=== PATIENT | female | born 1950 | race Caucasian/White ===

== ENCOUNTER 2018-10-01 15:02 | Inpatient (IN) ==
[2018-10-01] MEDS ORDERED: MethylPREDNISolone Sod Succinate Inj 125 MG/2 ML Vial IV.PUSH ONE (15:41)
[2018-10-01 15:57] LABS: Baso # (Auto) 0.1 th/mm3 (0.0-0.2); Baso % (Auto) 1.2 % (0.0-2.0); Eos % (Auto) 0.5 % (0.0-4.0); Lymph # (Auto) 0.7 th/mm3 (1.0-4.8); Lymph % (Auto) 10.3 % (9.0-44.0); Mean Corpuscular Hemoglobin 26.4 pg (27.0-34.0); Mean Corpuscular Volume 82.5 fL (80.0-100.0); Mean Platelet Volume 7.5 fL (7.0-11.0); Mono # (Auto) 0.7 th/mm3 (0.0-0.9); Mono % (Auto) 9.5 % (0.0-8.0); Neut # (Auto) 5.6 th/mm3 (1.8-7.7); Neut % (Auto) 78.5 % (16.0-70.0); Platelet Count 550 th/mm3 (150-450); Red Blood Count 3.03 mil/mm3 (4.00-5.30); Red Cell Distribution Width 18.9 % (11.6-17.2); White Blood Count 7.1 th/mm3 (4.0-11.0)
[2018-10-01 16:17] LABS: Activated Partial Thrombo Time 28.9 sec (23.4-31.7); INR 1.4 Ratio
[2018-10-01 16:20] LABS: Alanine Aminotransferase 134 U/L (10-53); Albumin 2.7 g/dL (3.4-5.0); Alkaline Phosphatase 224 U/L (45-117); Anion Gap 6 meq/L (5-15); Aspartate Aminotransferase 176 U/L (15-37); Blood Urea Nitrogen 9 mg/dL (7-18); Calcium 8.6 mg/dL (8.5-10.1); Carbon Dioxide 39.6 meq/L (21.0-32.0); Chloride 94 meq/L (98-107); Glomerular Filtration Rate Greater Than 89 mL/min (>89); Glucose,Random 111 mg/dL (74-106); Magnesium 2.1 mg/dL (1.5-2.5); Potassium 3.2 meq/L (3.5-5.1); Sodium 140 meq/L (136-145); Total Protein 6.4 g/dL (6.4-8.2)
[2018-10-01 16:22] LABS: Creatine Kinase 40 U/L (26-192)
--- NOTE | 2018-10-01 16:29 | XR ---
EXAM DATE: 10/01/2018 4:21 PM EST AGE/SEX: 68 years / Female INDICATIONS: Asthma. CLINICAL DATA: This is the patient's initial encounter. Patient reports that signs and symptoms have been present for 1 day and indicates a pain score of 0/10. MEDICAL/SURGICAL HISTORY: Chronic obstructive pulmonary disease. None. COMPARISON: No prior exams available for comparison. FINDINGS: The heart size is normal. There some minimal increased density at the bases. The mid and upper lungs are clear. The lungs do appear hyperinflated. No effusion is seen. CONCLUSION: Minimal linear density at the bases likely related to minimal atelectasis or consolidation. Electronically signed by: Pro Marcano MD Board Certified Radiologist 10/01/2018 4:27 PM EST
--- NOTE | 2018-10-01 17:24 | CT ---
EXAM DATE: 10/01/2018 5:19 PM EST AGE/SEX: 68 years / Female INDICATIONS: Increasing shortness of breath CLINICAL DATA: This is the patient's initial encounter. Patient reports that signs and symptoms have been present for 1 day and indicates a pain score of 0/10. MEDICAL/SURGICAL HISTORY: Chronic obstructive pulmonary disease. None. RADIATION DOSE: 6.37 CTDI (mGy) COMPARISON: No prior exams available for comparison. TECHNIQUE: Volumetric scanning was performed using a multi-row detector CT scanner during bolus infu [place] of 75 ml Omnipaque 350 (iohexol) nonionic water-soluble contrast as a single exam dose. The kayley a was post processed with a variety of visualization algorithms including full volume maximum intensi ty projection and sliding thin slab reformation. Using automated exposure control and adjustment of t he mA and/or kV according to patient size, radiation dose was kept as low as reasonably achievable to obtain optimal diagnostic quality images. DICOM format image data is available electronically for r eview and comparison. FINDINGS: Pulmonary Arteries: No filling defects are seen in the pulmonary arteries out to the subsegmental ve ssels. The left and right pulmonary arteries are normal in diameter. Lung: There is emphysematous change seen throughout the lungs. There is increased density at the ant erior medial right lower lung and right middle lobe, and the subpleural regions at the left base, and smaller areas at the posterior superior aspect of the right lower lobe and the posterior medial mid left lower lobe. Effusion: None. Mediastinum: No evidence of mediastinal or hilar adenopathy. The left vertebral artery arises direct ly from the aortic arch between the left common carotid artery and left subclavian artery. This a nor mal variant. Other: The axilla is unremarkable. There are smaller calcifications in the anterior left mid kidney likely related to cortical calcification or nonobstructing renal stone. CONCLUSION: 1. No pulmonary embolus. 2. Emphysematous change seen throughout the lungs. 3. Scattered areas of density seen throughout the lungs being most prominent at the right middle lob e and left lower lobe. These likely represent areas of consolidation or atelectasis. They can be foll owed. Electronically signed by: Pro Marcano MD Board Certified Radiologist 10/01/2018 5:22 PM EST
[2018-10-01] MEDS ORDERED: Azithromycin Inj 500 MG in Sodium Chlor 0.9% Inj 250 ML IV.SIG ONE (17:37)
[2018-10-01] MEDS ORDERED: Acetaminophen 325 MG Tablet PO PRN (18:15)
[2018-10-01] MEDS ORDERED: Bisacodyl 10 MG Supp RECTAL PRN (18:15)
--- NOTE | 2018-10-01 18:25 | P.HPIM ---
History of Present Illness Primary Care Physician: Franky Patel DO Chief Complaint: sob, cough History of Present Illness: 68-year-old female with PMH of CRF and COPD on 2-4 L by MA at home recently requiring 4-5 L per patient at home. She follows with Dr Maya shoemaker as OP but has not seen him lately. The patient presented to the ED for evaluation of shortness of breath and possible anemia. Says she has a h/ o anemia and is taking iron pills. Per patient she was seen by her doctor today and was told to come here as she looked pale and she may need a transfusion as well as her shortness of breath was worsening. She denies any blood thinners. She denies any bleeding of any kind. No urinary or bowel movement issues. Says 2 L of oxygen at home but even with this she still feels very short of breath. Any movement causes more symptoms. She does have some chest discomfort as well and feels like a pressure. States that the pain currently is 5 out of 10. Per patient overall her main symptom is the shortness of breath. She states that she is chronically anemic and she was told that she is iron deficient and she is taking iron supplements. She states that she is never any a transfusion in the past. She denies any cardiac history. Patient states that she continues to smoke 1PPD. She does have a history of COPD and uses inhalers and nebulizers at home including inhaled steroid. No abdominal pain. No diarrhea. No fever but states having some chills and sweats. Feels comgested in her chest and can't cough up anything. No other medical symptoms. Inpatient Certification Inpatient Certification: I certify that the inpatient services were ordered in accordance with Medicare regulations governing the order. This includes certification that hospital inpatient services are reasonable and necessary and in the case of services not specified as inpatient-only under 42 CFR 419.22(n), that they are appropriately provided as inpatient services in accordance to with the 2-midnight benchmark under 43 CFR 412.3(e) Estimated Total Length of Stay (Days): 5 Plans for Post Hospital Care: Not yet determined Review of Systems Review of Systems: all other systems reviewed are negative [facility] Medical History Medical History Smoker (Acute) History of COPD (Acute) History of high cholesterol (Acute) History of shingles (Acute) Surgical History Surgical History No history of previous surgery (Acute) Social History Social History Substance History: No History of Abuse Second Hand Smoke Exposure: Yes Smoking Status: Current every day smoker Tobacco Type: Cigarettes How Often Do You Have a Drink Containing Alcohol: Never Recent Travel in [facility] within the Last 8 Weeks: No Recent Out of Country Travel within the Last 8 Weeks: No Immunization History Tetanus Immunization: >5 Years Medications and Allergies Allergies Allergy/AdvReac Type Severity Reaction Status Date / Time No Known Allergies Allergy Verified 10/01/18 15:27 Home Medications Medication Instructions Recorded Confirmed Type albuterol sulfate [ProAir HFA] 2 puff INHALATION Q4-6H PRN 06/15/18 10/01/18 History ferrous sulfate [iron] 325 mg PO DAILY 06/15/18 10/01/18 History lovastatin 40 mg PO DAILY 06/15/18 10/01/18 History tiotropium bromide [Spiriva 2 puff INHALATION DAILY 06/15/18 10/01/18 History Respimat] Active Medications: Active Medications Hydrocodone Bitart/Acetaminophen ([place] 5/325) 1 tab PO Q4H PRN PRN Reason: Acute pain 1-5 Ferrous Sulfate (Ferosul) 325 mg PO DAILY [facility] Azithromycin 500 mg/ Sodium (Chloride) 250 mls @ 250 mls/hr IV.SIG ONCE ONE Stop: 10/01/18 18:36 Non-Formulary Medication (Tiotropium [place] [Spiriva Respimat]) 2 puff INHALATION DAILY [facility] Pravastatin Sodium (Pravachol) 40 mg PO DAILY [facility] Physical Exam Vital signs: Last Vital Signs Temp 97.9 F 10/01/18 17:34 Pulse 115 H 10/01/18 18:08 Resp 15 10/01/18 18:08 BP 123/58 L 10/01/18 17:34 Pulse Ox 95 10/01/18 17:34 Intake & Output 09/29/18 09/30/18 10/01/18 10/02/18 06:59 06:59 06:59 06:59 Weight 51.71 kg Narrative: GENERAL: Very pleasant 68-year-old female frail, cachectic, appears short of breath SKIN: Warm and dry. HEAD: Atraumatic. Normocephalic. EYES: Pupils equal and round. No scleral icterus. No injection or drainage. ENT: No nasal bleeding or discharge. Mucous membranes pink and moist. NECK: Trachea midline. No JVD. CARDIOVASCULAR: Regular rate and rhythm. RESPIRATORY: No accessory muscle use. Decreased breath sounds bilaterally. Wheezing. Bronchial sounds. GASTROINTESTINAL: Abdomen soft, non-tender, nondistended. Hepatic and splenic margins not palpable. MUSCULOSKELETAL: Muscle waisting. Extremities without clubbing, cyanosis, or edema. No obvious deformities. NEUROLOGICAL: Awake and alert. No obvious cranial nerve deficits. Motor grossly within normal limits. Five out of 5 muscle strength in the arms and legs. Normal speech. PSYCHIATRIC: Appropriate mood and affect; insight and judgment normal. Results Labs CBC & Chem 7: 10/01/18 15:45 10/01/18 15:45 Imaging Impressions Chest X-Ray 10/01/18 15:21 CONCLUSION: Minimal linear density at the bases likely related to minimal atelectasis or consolidation. Chest CTA 10/01/18 16:01 CONCLUSION: 1. No pulmonary embolus. 2. Emphysematous change seen throughout the lungs. 3. Scattered areas of density seen throughout the lungs being most prominent at the right middle lobe and left lower lobe. These likely represent areas of consolidation or atelectasis. They can be followed. Caprini VTE Risk Assessment Caprini VTE Risk Assessment: Moderate/High Risk (score >= 2) Caprini Risk Assessment Model: Point Value = 1 Point Value = 2 Point Value = 3 Point Value = 5 Age 41-60 Minor surgery BMI > 25 kg/m2 Swollen legs Varicose veins or History of unexplained or recurrent spontaneous Oral contraceptives or hormone replacement Sepsis (< 1 month) Serious lung disease, including pneumonia (< 1 month) Abnormal pulmonary function Acute myocardial infarction Congestive heart failure (< 1 month) History of inflammatory bowel disease Medical patient at bed rest Age 61-74 Arthroscopic surgery Major open surgery (> 45 min) Laparoscopic surgery (> 45 min) Malignancy Confined to bed (> 72 hours) Immobilizing plaster cast Central venous access Age >= 75 History of VTE Family history of VTE Factor V Leiden Prothrombin [id number] Lupus anticoagulant Anticardiolipin antibodies Elevated serum homocysteine Heparin-induced thrombocytopenia Other congenital or acquired thrombophilia Stroke (< 1 month) Elective arthroplasty Hip, pelvis, or leg fracture Acute spinal cord injury (< 1 month) Prophylaxis Regimen: Total Risk Factor Score Risk Level Prophylaxis Regimen 0-1 Low Early ambulation 2 Moderate Order ONE of the following: *Sequential Compression Device (SCD) *Heparin 5000 units SQ BID 3-4 Higher Order ONE of the following medications: *Heparin 5000 units SQ TID *Enoxaparin/Lovenox 40 mg SQ daily (WT < 150 kg, CrCl > 30 mL/min) *Enoxaparin/Lovenox 30 mg SQ daily (WT < 150 kg, CrCl > 10-29 mL/min) *Enoxaparin/Lovenox 30 mg SQ BID (WT < 150 kg, CrCl > 30 mL/min) AND/OR *Sequential Compression Device (SCD) 5 or more Highest Order ONE of the following medications: *Heparin 5000 units SQ TID (Preferred with Epidurals) *Enoxaparin/Lovenox 40 mg SQ daily (WT < 150 kg, CrCl > 30 mL/min) *Enoxaparin/Lovenox 30 mg SQ daily (WT < 150 kg, CrCl > 10-29 mL/min) *Enoxaparin/Lovenox 30 mg SQ BID (WT < 150 kg, CrCl > 30 mL/min) AND *Sequential Compression Device (SCD) Assessment and Plan Plan The patient is pleasant 68-year-old female with Acute on chronic respiratory failure patient is on 2 L by nasal cannula oxygen supplement at home and now requiring 5 L by nasal cannula Severe COPD with exacerbation Bilateral pneumonia Symptomatic anemia Sepsis meeting criteria on admission with tachypnea and tachycardia Moderate to severe Protein calorie malnutrition. Likely secondary to COPD. Patient cachectic with low BMI. Dietitian consult. Check prealbumin. Add Ensure. Blood cultures obtained in the emergency room Sputum cultures if obtainable Urinary antigen for Legionella and pneumococcal Started on IV antibiotics azithromycin and ceftriaxone Duo nebs scheduled and as needed Solu-Medrol IV taper as tolerated Acapella, incentive spirometry Oxygen supplement to keep oxygen saturation more than 90% If need, consult patient pulmonology Dr. Trejo Patient hemoglobin is 8 on admission received 1 unit of blood, monitor H&H and transfuse as needed Restart home medications as appropriate DVT prophylaxis SCDs/teds Discussed Condition With: The patient, Family - son at bedside, nurse, ED physician/PA
--- NOTE | 2018-10-01 18:35 | ED ---
HPI General Chief Complaint: Shortness of Breath/Dyspnea Stated Complaint: Dr dias Time Seen by Provider: 10/01/18 15:21 Source: patient Mode of arrival: ambulatory Limitations: no limitations History of Present Illness 68-year-old female who presents to the ED for evaluation of shortness of breath and possible anemia. Per patient she was seen by her doctor today and was told to come here as she looked pale and she may need a transfusion as well as her shortness of breath was worsening. She denies any blood thinners. She denies any bleeding of any kind. No urinary or bowel movement issues. Says 2 L of oxygen at home but even with this she still feels very short of breath. Any movement causes more symptoms. She does have some chest discomfort as well and feels like a pressure. States that the pain currently is 5 out of 10. Per patient overall her main symptom is the shortness of breath. She states that she is chronically anemic and she was told that she is iron deficient and she is taking iron supplements. She states that she is never any a transfusion in the past. She denies any cardiac history. Patient states that she continues to smoke. She does have a history of COPD and uses inhalers and nebulizers at home including inhaled steroid. No abdominal pain. No diarrhea. No fever but states having some chills and sweats. No other medical symptoms. Related Data Home Medications Medication Instructions Recorded Confirmed albuterol sulfate [ProAir HFA] 2 puff INHALATION Q4-6H PRN 06/15/18 10/01/18 ferrous sulfate [iron] 325 mg PO DAILY 06/15/18 10/01/18 lovastatin 40 mg PO DAILY 06/15/18 10/01/18 tiotropium bromide [Spiriva 2 puff INHALATION DAILY 06/15/18 10/01/18 Respimat] Previous Rx's Medication Instructions Recorded hydrocodone-acetaminophen [[place]] 1 tab PO Q4H PRN #14 tab 06/15/18 Allergies Allergy/AdvReac Type Severity Reaction Status Date / Time No Known Allergies Allergy Verified 10/01/18 15:27 Review of Systems ROS: all other systems reviewed are negative [facility] Medical History Medical History Smoker (Acute) History of COPD (Acute) History of high cholesterol (Acute) History of shingles (Acute) Surgical History Surgical History No history of previous surgery (Acute) Social History Social History Substance History: No History of Abuse Second Hand Smoke Exposure: Yes Smoking Status: Current every day smoker Tobacco Type: Cigarettes How Often Do You Have a Drink Containing Alcohol: Never Recent Travel in [facility] within the Last 8 Weeks: No Recent Out of Country Travel within the Last 8 Weeks: No Immunization History Tetanus Immunization: >5 Years Exam Narrative Exam Narrative: GENERAL: in some distress SKIN: Focused skin assessment warm/dry. HEAD: Atraumatic. Normocephalic. EYES: Pupils equal and round. No scleral icterus. No injection or drainage. ENT: No nasal bleeding or discharge. Mucous membranes pink and moist. Tongue is midline. No Uvula deviation. NECK: Trachea midline. No JVD. CARDIOVASCULAR: Regular rate and rhythm. No murmur appreciated. RESPIRATORY: No accessory muscle use. Wheezing heard in all lung knapp. Breath sounds equal bilaterally. GASTROINTESTINAL: Abdomen soft, non-tender, nondistended. Hepatic and splenic margins not palpable. MUSCULOSKELETAL: No obvious deformities. No clubbing. No cyanosis. No edema. Full range of motion of the upper and lower extremities bilaterally. 2+ pulses bilaterally. NEUROLOGICAL: Awake and alert. No obvious cranial nerve deficits. Motor grossly within normal limits. Normal speech. PSYCHIATRIC: Appropriate mood and affect; insight and judgment normal. Course Initial Documented Vital Signs Temperature 97.6 F 10/01/18 15:15 Pulse Rate 114 H 10/01/18 15:15 Respiratory Rate 24 10/01/18 15:15 Blood Pressure 135/61 10/01/18 15:15 Pulse Oximetry 85 L 10/01/18 15:15 Last Documented Vital Signs Temperature 97.9 F 10/01/18 17:34 Pulse Rate 115 H 10/01/18 18:08 Respiratory Rate 15 10/01/18 18:08 Blood Pressure 123/58 L 10/01/18 17:34 Pulse Oximetry 95 10/01/18 17:34 Medical Decision Making MDM Narrative Medical decision making narrative: 68-year-old female that presents to the ED for evaluation of shortness of breath and possible anemia. Patient was properly examined and was found to have signs and symptoms consistent with appears to be likely COPD exacerbation. She does appear to be pale but I presume this is chronic for her. Labs and imaging were ordered. Labs did show hemoglobin of 8. No signs of bleeding at this time. Patient had a CTA secondary to tachycardia and hypoxia which appeared to worsen. Chest x-ray did not show any sign of pneumonia. CTA did show some consolidations in both the right and left lung. Could be pneumonia. 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 Any movement especially walking makes that the satting worse. My attending Dr. Francisco evaluate the patient and agrees with this plan. Patient was started on ceftriaxone and azithromycin IV. Case discussed with admitting physician Dr. Hancock who agrees admission to her service. Medical Screen Exam Complete: Yes Emergency Medical Condition: Yes Differential Diagnosis Differential Diagnosis: COPD exacerbation versus PE versus chronic anemia versus symptomatic anemia versus pneumonia Medical Records Medical records reviewed: Yes I reviewed the patient's medical records. Lab Data Lab results reviewed: Yes I reviewed the patient's lab results. Result diagrams: 10/01/18 15:45 10/01/18 15:45 Lab Results 10/01/18 10/01/18 10/01/18 Range/Units 15:45 15:45 15:45 WBC 7.1 (4.0-11.0) th/mm3 RBC 3.03 L (4.00-5.30) mil/mm3 Hgb 8.0 L (11.6-15.3) gm/dL Hct 25.0 L (35.0-46.0) % MCV 82.5 (80.0-100.0) fL MCH 26.4 L (27.0-34.0) pg MCHC 32.0 (32.0-36.0) % RDW 18.9 H (11.6-17.2) % Plt Count 550 H (150-450) th/mm3 MPV 7.5 (7.0-11.0) fL Neut % (Auto) 78.5 H (16.0-70.0) % Lymph % (Auto) 10.3 (9.0-44.0) % [place] % (Auto) 9.5 H (0.0-8.0) % Eos % (Auto) 0.5 (0.0-4.0) % Baso % (Auto) 1.2 (0.0-2.0) % Neut # (Auto) 5.6 (1.8-7.7) th/mm3 Lymph # (Auto) 0.7 L (1.0-4.8) th/mm3 [place] # (Auto) 0.7 (0.0-0.9) th/mm3 Eos # (Auto) 0.0 (0.0-0.4) th/mm3 Baso # (Auto) 0.1 (0.0-0.2) th/mm3 WBC Differential . Differential Comment Auto diff final PT 14.0 H (9.8-11.6) sec INR 1.4 Ratio APTT 28.9 (23.4-31.7) sec Sodium 140 (136-145) meq/L Potassium 3.2 L (3.5-5.1) meq/L Chloride 94 L (98-107) meq/L Carbon Dioxide 39.6 H (21.0-32.0) meq/L Anion Gap 6 (5-15) meq/L BUN 9 (7-18) mg/dL Creatinine 0.47 L (0.50-1.00) mg/dL Estimated GFR Greater than 89 (>89) mL/min Random Glucose 111 H (74-106) mg/dL Calcium 8.6 (8.5-10.1) mg/dL Magnesium 2.1 (1.5-2.5) mg/dL Total Bilirubin 0.9 (0.2-1.0) mg/dL AST 176 H (15-37) U/L ALT 134 H (10-53) U/L Alkaline Phosphatase 224 H (45-117) U/L Total Creatine Kinase 40 (26-192) U/L Troponin I Less than 0.02 L (0.02-0.05) ng/mL Total Protein 6.4 (6.4-8.2) g/dL Albumin 2.7 L (3.4-5.0) g/dL Blood Type Antibody Screen MTS Gel Crossmatch 10/01/18 10/01/18 Range/Units 15:45 17:40 WBC (4.0-11.0) th/mm3 RBC (4.00-5.30) mil/mm3 Hgb (11.6-15.3) gm/dL Hct (35.0-46.0) % MCV (80.0-100.0) fL MCH (27.0-34.0) pg MCHC (32.0-36.0) % RDW (11.6-17.2) % Plt Count (150-450) th/mm3 MPV (7.0-11.0) fL Neut % (Auto) (16.0-70.0) % Lymph % (Auto) (9.0-44.0) % [place] % (Auto) (0.0-8.0) % Eos % (Auto) (0.0-4.0) % Baso % (Auto) (0.0-2.0) % Neut # (Auto) (1.8-7.7) th/mm3 Lymph # (Auto) (1.0-4.8) th/mm3 [place] # (Auto) (0.0-0.9) th/mm3 Eos # (Auto) (0.0-0.4) th/mm3 Baso # (Auto) (0.0-0.2) th/mm3 WBC Differential Differential Comment PT (9.8-11.6) sec INR Ratio APTT (23.4-31.7) sec Sodium (136-145) meq/L Potassium (3.5-5.1) meq/L Chloride (98-107) meq/L Carbon Dioxide (21.0-32.0) meq/L Anion Gap (5-15) meq/L BUN (7-18) mg/dL Creatinine (0.50-1.00) mg/dL Estimated GFR (>89) mL/min Random Glucose (74-106) mg/dL Calcium (8.5-10.1) mg/dL Magnesium (1.5-2.5) mg/dL Total Bilirubin (0.2-1.0) mg/dL AST (15-37) U/L ALT (10-53) U/L Alkaline Phosphatase (45-117) U/L Total Creatine Kinase (26-192) U/L Troponin I (0.02-0.05) ng/mL Total Protein (6.4-8.2) g/dL Albumin (3.4-5.0) g/dL Blood Type O Positive Antibody Screen Negative MTS Gel Crossmatch See Detail Imaging Data Attestation: I personally reviewed and interpreted this imaging study as follows : Radiologist's impression: Chest X-Ray 10/01/18 15:21 CONCLUSION: Minimal linear density at the bases likely related to minimal atelectasis or consolidation. Chest CTA 10/01/18 16:01 CONCLUSION: 1. No pulmonary embolus. 2. Emphysematous change seen throughout the lungs. 3. Scattered areas of density seen throughout the lungs being most prominent at the right middle lobe and left lower lobe. These likely represent areas of consolidation or atelectasis. They can be followed. ECG Data Attestation: I personally reviewed and interpreted this ECG as follows: Interpretation: EKG shows sinus tachycardia but no sign of acute ischemia and arrhythmia read by me and attending. Discharge Plan Discharge Disposition Patient Disposition: ED Admit(ED Internal Use Only) Discharge Order Discharge Orders: ED Use Only Admit Order (Routine); Ordered 10/01/18 Ordered By: Hector Puente Discharge Details Diagnosis: Acute exacerbation of chronic obstructive airways disease, Pneumonia, Anemia Physicians Team ED Provider: Hussain Francisco ED Midlevel Provider: Hector Puente Primary Care Provider: Franky Patel Attending Provider: Louise Hancock Status ED Status: Admitted Patient
[2018-10-01] MEDS: Sod Chloride 0.9% Inj 1,000 ML IV.CONT SCH (22:04)
[2018-10-01] MEDS: Senna/Docusate Sodium 8.6/50 MG Tablet PO SCH (22:05)
[2018-10-01] MEDS: Famotidine PF Inj 20 MG/2 ML Vial IV.PUSH SCH (22:05)
[2018-10-01] MEDS: MethylPREDNISolone Sod Succinate Inj 40 MG/ML Vial IV.PUSH SCH (22:06)
[2018-10-02] MEDS ORDERED: Chlorhexidine Gluconate 2% 1 Pack (2 Cloths) TOPICAL PRN (04:00)
[2018-10-02] MEDS: Chlorhexidine Gluconate 2% 1 Pack (2 Cloths) TOPICAL SCH (04:31)
[2018-10-02] MEDS: MethylPREDNISolone Sod Succinate Inj 40 MG/ML Vial IV.PUSH SCH ×4 (04:52→22:11)
[2018-10-02 07:47] LABS: Baso % (Auto) 0.3 % (0.0-2.0); Hematocrit 30.9 % (35.0-46.0); Hemoglobin 9.7 gm/dL (11.6-15.3); Lymph # (Auto) 0.5 th/mm3 (1.0-4.8); Lymph % (Auto) 9.2 % (9.0-44.0); Mean Corpuscular HGB Conc 31.5 % (32.0-36.0); Mean Corpuscular Hemoglobin 26.7 pg (27.0-34.0); Mean Corpuscular Volume 84.8 fL (80.0-100.0); Mean Platelet Volume 7.4 fL (7.0-11.0); Mono # (Auto) 0.1 th/mm3 (0.0-0.9); Neut % (Auto) 89.5 % (16.0-70.0); Platelet Count 535 th/mm3 (150-450); Red Blood Count 3.65 mil/mm3 (4.00-5.30); Red Cell Distribution Width 18.4 % (11.6-17.2); White Blood Count 5.6 th/mm3 (4.0-11.0)
[2018-10-02 08:06] LABS: Albumin 2.7 g/dL (3.4-5.0); Anion Gap 5 meq/L (5-15); Aspartate Aminotransferase 103 U/L (15-37); Blood Urea Nitrogen 7 mg/dL (7-18); Calcium 8.4 mg/dL (8.5-10.1); Carbon Dioxide 39.8 meq/L (21.0-32.0); Chloride 95 meq/L (98-107); Glomerular Filtration Rate Greater Than 89 mL/min (>89); Glucose,Random 116 mg/dL (74-106); Sodium 140 meq/L (136-145)
[2018-10-02 08:13] LABS: Alanine Aminotransferase 110 U/L (10-53); Alkaline Phosphatase 200 U/L (45-117); Total Protein 6.4 g/dL (6.4-8.2)
[2018-10-02 08:20] LABS: Potassium 2.9 meq/L (3.5-5.1)
--- NOTE | 2018-10-02 08:32 | ECG ---
Date Performed: 10/01/2018 Time Performed: 15:33:08 PTAGE: 68 years EKG: SINUS TACHYCARDIA NONSPECIFIC ST & T-WAVE ABNORMALITY ABNORMAL RHYTHM ECG NO PREVIOUS TRACING DOCTOR: Eve Alcocer Interpretating Date/Time 10/02/2018 08:27:09
[2018-10-02] MEDS ORDERED: [UNRECOGNIZED DRUG - OTHER] INH SCH (09:00)
[2018-10-02] MEDS ORDERED: TIOTROPIUM BROMIDE INH SCH (09:00)
[2018-10-02] MEDS: Ferrous Sulfate 325 MG Tablet PO SCH (09:20)
[2018-10-02] MEDS: Famotidine 20 MG Tablet PO SCH (09:21)
[2018-10-02] MEDS: Famotidine PF Inj 20 MG/2 ML Vial IV.PUSH SCH ×2 (09:21→22:11)
[2018-10-02] MEDS: Sod Chloride 0.9% Inj 1,000 ML IV.CONT SCH ×3 (09:21→22:11)
[2018-10-02] MEDS: Senna/Docusate Sodium 8.6/50 MG Tablet PO SCH ×2 (09:22→22:13)
--- NOTE | 2018-10-02 09:57 | P.PNFP ---
Subjective Interval history: Resting in bed, son at bedside. She is SOB, dyspneic with conversation She denies CP, or palpations potassium 2.9 this am Results - Labs Result diagrams: 10/02/18 05:20 10/02/18 05:20 Abnormal lab results 10/01/18 10/01/18 10/01/18 Range/Units 15:45 15:45 15:45 RBC 3.03 L (4.00-5.30) mil/mm3 Hgb 8.0 L (11.6-15.3) gm/dL Hct 25.0 L (35.0-46.0) % MCH 26.4 L (27.0-34.0) pg MCHC (32.0-36.0) % RDW 18.9 H (11.6-17.2) % Plt Count 550 H (150-450) th/mm3 Neut % (Auto) 78.5 H (16.0-70.0) % [place] % (Auto) 9.5 H (0.0-8.0) % Lymph # (Auto) 0.7 L (1.0-4.8) th/mm3 PT 14.0 H (9.8-11.6) sec Potassium 3.2 L (3.5-5.1) meq/L Chloride 94 L (98-107) meq/L Carbon Dioxide 39.6 H (21.0-32.0) meq/L Creatinine 0.47 L (0.50-1.00) mg/dL Random Glucose 111 H (74-106) mg/dL Calcium (8.5-10.1) mg/dL AST 176 H (15-37) U/L ALT 134 H (10-53) U/L Alkaline Phosphatase 224 H (45-117) U/L Troponin I Less than 0.02 L (0.02-0.05) ng/mL Albumin 2.7 L (3.4-5.0) g/dL MTS Gel Crossmatch 10/01/18 10/02/18 10/02/18 Range/Units 17:40 05:20 05:20 RBC 3.65 L (4.00-5.30) mil/mm3 Hgb 9.7 L (11.6-15.3) gm/dL Hct 30.9 L (35.0-46.0) % MCH 26.7 L (27.0-34.0) pg MCHC 31.5 L (32.0-36.0) % RDW 18.4 H (11.6-17.2) % Plt Count 535 H (150-450) th/mm3 Neut % (Auto) 89.5 H (16.0-70.0) % [place] % (Auto) (0.0-8.0) % Lymph # (Auto) 0.5 L (1.0-4.8) th/mm3 PT (9.8-11.6) sec Potassium 2.9 L* (3.5-5.1) meq/L Chloride 95 L (98-107) meq/L Carbon Dioxide 39.8 H (21.0-32.0) meq/L Creatinine 0.40 L (0.50-1.00) mg/dL Random Glucose 116 H (74-106) mg/dL Calcium 8.4 L (8.5-10.1) mg/dL AST 103 H (15-37) U/L ALT 110 H (10-53) U/L Alkaline Phosphatase 200 H (45-117) U/L Troponin I (0.02-0.05) ng/mL Albumin 2.7 L (3.4-5.0) g/dL MTS Gel Crossmatch See Detail Short CBC 10/01/18 10/02/18 Range/Units 15:45 05:20 WBC 7.1 5.6 (4.0-11.0) th/mm3 Hgb 8.0 L 9.7 L (11.6-15.3) gm/dL Hct 25.0 L 30.9 L (35.0-46.0) % Plt Count 550 H 535 H (150-450) th/mm3 BMP 10/01/18 10/02/18 15:45 05:20 Sodium 140 140 Potassium 3.2 L 2.9 L* Chloride 94 L 95 L Carbon Dioxide 39.6 H 39.8 H BUN 9 7 Creatinine 0.47 L 0.40 L Calcium 8.6 8.4 L Cardiac Enzymes 10/01/18 Range/Units 15:45 Total Creatine Kinase 40 (26-192) U/L Troponin I Less than 0.02 L (0.02-0.05) ng/mL Liver Function 10/01/18 10/02/18 Range/Units 15:45 05:20 Total Bilirubin 0.9 0.8 (0.2-1.0) mg/dL AST 176 H 103 H (15-37) U/L ALT 134 H 110 H (10-53) U/L Alkaline Phosphatase 224 H 200 H (45-117) U/L Albumin 2.7 L 2.7 L (3.4-5.0) g/dL - Imaging Impressions Chest X-Ray 10/01/18 15:21 CONCLUSION: Minimal linear density at the bases likely related to minimal atelectasis or consolidation. Chest CTA 10/01/18 16:01 CONCLUSION: 1. No pulmonary embolus. 2. Emphysematous change seen throughout the lungs. 3. Scattered areas of density seen throughout the lungs being most prominent at the right middle lobe and left lower lobe. These likely represent areas of consolidation or atelectasis. They can be followed. Physical Exam Vital signs: Vital Signs 10/01/18 15:15 10/01/18 15:21 10/01/18 15:53 Temperature 97.6 F Pulse Rate 114 H 111 H Respiratory Rate 24 16 Blood Pressure 135/61 Pulse Oximetry 85 L 96 96 10/01/18 15:54 10/01/18 17:34 10/01/18 18:08 Temperature 97.9 F Pulse Rate 111 H 109 H 115 H Respiratory Rate 16 20 15 Blood Pressure 123/58 L Pulse Oximetry 95 10/01/18 18:15 10/01/18 18:47 10/01/18 19:05 Temperature 99 F 99 F 99 F Pulse Rate 120 H 121 H 118 H Respiratory Rate 20 20 20 Blood Pressure 124/60 123/58 L 118/65 Pulse Oximetry 95 95 95 10/01/18 19:15 10/01/18 20:00 10/01/18 20:45 Temperature 98.1 F Pulse Rate 117 H 117 H 117 H Respiratory Rate 16 20 Blood Pressure 140/60 Pulse Oximetry 92 L 10/01/18 20:46 10/01/18 21:54 10/02/18 00:00 Temperature 97.9 F 98.9 F Pulse Rate 110 H 101 H Respiratory Rate 16 16 Blood Pressure 138/64 140/62 Pulse Oximetry 91 L 95 91 L 10/02/18 04:00 10/02/18 08:10 Temperature 98.4 F Pulse Rate 101 H 103 H Respiratory Rate 17 18 Blood Pressure 139/64 Pulse Oximetry 92 L Intake & Output 10/01/18 10/02/18 10/02/18 18:59 06:59 18:59 Intake Total 100 / 100 1250 / 1250 1000 / 1000 Balance 100 / 100 1250 / 1250 1000 / 1000 Weight 51.71 kg 57.3 kg Intake: IV 100 / 100 250 / 250 1000 / 1000 NS Inj 1,000 ML @ 100 mls/hr IV 1000 / 1000 .CONT .Q10H CHRIS Rx#:[id number] Azithromycin Inj 500 MG In NS 250 / 250 Inj 250 ML @ 250 mls/hr IV.SIG ONCE ONE Rx#:[id number] Rocephin Inj 1,000 MG In NS Inj 100 / 100 100 ML @ 200 mls/hr IV.SIG ONCE ONE Rx#:[id number] Oral 600 / 600 Intake (Blood Product) Amt 0 / 0 400 / 400 Rbc As-3 Leukoreduced Unit 0 / 0 400 / 400 [id number] Other: # Voids 6 Date of Last Bowel Movement 10/02/18 # Bowel Movements 2 Weight On Admission 57.7 kg - Constitutional no acute distress - Routine HEENT Exam Eye: Present: PERRL ENT: Present: mucous membranes moist - Routine Respiratory Exam Present: wheezes, diminished air movement - Routine Cardiovascular Exam Present: S1, S2 - Routine Abdominal Exam Present: soft, normoactive bowel sounds - Routine Extremities Exam Present: pulses intact - Routine Skin Exam Present: dry, warm - Routine Neurological Exam Present: alert, oriented X3 - Routine Psychiatric Exam Present: cooperative Assessment and Plan - Assessment (1) Acute exacerbation of chronic obstructive airways disease Code(s): J44.1 - Chronic obstructive pulmonary disease with (acute) exacerbation Status: Acute Plan: Pulmonary consult, oxygen support, bronchodilators, Solu-Medrol (2) Pneumonia Code(s): J18.9 - Pneumonia, unspecified organism Status: Acute Plan: Pulmonary consult, cont Iv azithromycin, Rocephin. (3) Anemia Code(s): D64.9 - Anemia, unspecified Status: Acute Plan: Given unit blood, no sign of bleeding, will cont to monitor Fe supplement (4) Hypokalemia Code(s): E87.6 - Hypokalemia Status: Acute Plan: potassium 2.9 this am will replace
--- NOTE | 2018-10-02 12:13 | P.DIET ---
Nutritional Evaluation Type of nutrition evaluation: initial Nutrition consult regarding: Diet Evaluation Nutrition screening: Poor PO Intake, MDC Subjective Barriers to Nutrition: Mouth pain (Pt reports "yeast infection" in her mouth which makes it painful to chew and swallow ) Oral Diet Tolerance Assessment Indicates: Sore mouth Objective - Diagnosis Acute COPD exacerbation, pneumonia, anemia - Objective Body Mass Index: 21.7 [place] body weight: 55 kg % IBW: 104 Body Weight Used for Calculations: Actual (57.3kg admission weight ) Energy Needs - Lower Range (kCal/kg): 30 Energy Needs - Upper Range (kCal/kg): 35 Lower Limit kCal/kg (kCals): 1,719 Upper Limit kCal/kg (kCals): 2,005 Lower Limit Protein Factor (Grams per Kg): 1.2 Upper Limit Protein Factor (Grams per Kg): 1.5 Lower Protein Needs (Protein): 68 Upper Protein Needs (Protein): 86 Dietitian Reviewed in Medical Record: Current diet, Curent medications, Intake & Output, Labs, Medical history Diet Order: Cardiac diet Objective Comments: PMH; CRF, COPD Labs; K 2.9, random glucose 115 Medications; Ferrous sulfate- chronic anemia Assessment Assessment: MDC poor PO intake; Pt is currently at nutritional risk as she presented to ED with SOB and severe COPD exacerbation. Pt currently with increased energy requirements as increased work of breathing 2/2 COPD increases energy expenditure. Per MD note, pt with moderate to severe protein calorie malnutrition which I am agreeable to as pt has had poor PO intake and presents with evident muscle wasting. Pt currently on cardiac diet and reported that she ate her grits and one Ensure Enlive this morning. Pt reports that "all food tastes bad right now" because she has an infection in her mouth 2/2 antibiotics but she is forcing herself to eat some. Per pt, aware of this infection. Offered pt additional snacks throughout the day which may appeal to her however she declined and would like to try Ensure pudding instead. At this time will recommend to continue with Ensure Enlive TID to provide 350kcal and 20g protein and will offer pt Ensure pudding as well which provides 170kcal and 4g protein. Labs and medications reviewed. Will continue to monitor PO intake and clinical course. Recommendations: 1. Continue with Ensure Enlive TID 2. Ensure pudding q day per pt request 3. Monitor PO intake
[2018-10-02] MEDS: Potassium Chlor 20 mEq Premix 20 MEQ/100 ML PIGGYBACK IV.SIG SCH ×2 (12:25→14:10)
[2018-10-02] MEDS ORDERED: PARoxetine 25 MG ER Tablet PO SCH (16:00)
[2018-10-02] MEDS: Azithromycin Inj 250 MG in Sodium Chlor 0.9% Inj 250 ML IV.SIG SCH (22:09)
[2018-10-03] MEDS: Sod Chloride 0.9% Inj 1,000 ML IV.CONT SCH ×3 (01:10→20:41)
[2018-10-03 01:11] LABS: ABG PCO2 44 mmHg (38-42); ABG PO2 59 mmHg (61-120)
--- NOTE | 2018-10-03 01:44 | XR ---
EXAM DATE: 10/03/2018 1:39 AM EST AGE/SEX: 68 years / Female INDICATIONS: Respiratory failure. CLINICAL DATA: This is the patient's subsequent encounter. Patient reports that signs and symptoms h ave been present for 3 days and indicates a pain score of Nonresponsive. MEDICAL/SURGICAL HISTORY: Chronic obstructive pulmonary disease. None. COMPARISON: [facility] – [place], CHEST 1V SINGLE AP, 10/01/2018. . FINDINGS: Worsening focal parenchymal consolidation at the left base. Right lung remains clear. No pleural effu [place] or pneumothorax demonstrated. Heart size stable, within normal limits. CONCLUSION: Worsening left base consolidation. Electronically signed by: Pro Flores MD Board Certified Radiologist 10/03/2018 1:42 AM EST
[2018-10-03] MEDS: Chlorhexidine Gluconate 2% 1 Pack (2 Cloths) TOPICAL SCH (04:18)
[2018-10-03] MEDS: MethylPREDNISolone Sod Succinate Inj 40 MG/ML Vial IV.PUSH SCH ×3 (05:30→17:25)
[2018-10-03] MEDS: Ferrous Sulfate 325 MG Tablet PO SCH ×2 (08:14→20:41)
[2018-10-03] MEDS: Famotidine 20 MG Tablet PO SCH ×2 (08:15→20:41)
[2018-10-03] MEDS: Famotidine PF Inj 20 MG/2 ML Vial IV.PUSH SCH (08:18)
[2018-10-03] MEDS: Senna/Docusate Sodium 8.6/50 MG Tablet PO SCH ×2 (09:44→20:41)
[2018-10-03 10:39] LABS: ABG Base Excess 9.8 mmol/L (-2-2); ABG PCO2 50 mmHg (38-42); ABG PO2 54 mmHg (61-120)
[2018-10-03 11:11] LABS: Hematocrit 29.4 % (35.0-46.0); Hemoglobin 9.2 gm/dL (11.6-15.3); Lymph # (Auto) 0.5 th/mm3 (1.0-4.8); Lymph % (Auto) 4.9 % (9.0-44.0); Mean Corpuscular HGB Conc 31.3 % (32.0-36.0); Mean Corpuscular Hemoglobin 26.9 pg (27.0-34.0); Mean Corpuscular Volume 86.1 fL (80.0-100.0); Mean Platelet Volume 7.1 fL (7.0-11.0); Mono # (Auto) 0.2 th/mm3 (0.0-0.9); Mono % (Auto) 2.2 % (0.0-8.0); Neut # (Auto) 9.9 th/mm3 (1.8-7.7); Neut % (Auto) 92.9 % (16.0-70.0); Platelet Count 603 th/mm3 (150-450); Red Blood Count 3.41 mil/mm3 (4.00-5.30); Red Cell Distribution Width 18.8 % (11.6-17.2); White Blood Count 10.7 th/mm3 (4.0-11.0)
[2018-10-03 11:53] LABS: Alanine Aminotransferase 78 U/L (10-53); Albumin 2.8 g/dL (3.4-5.0); Alkaline Phosphatase 205 U/L (45-117); Anion Gap 3 meq/L (5-15); Aspartate Aminotransferase 40 U/L (15-37); Blood Urea Nitrogen 20 mg/dL (7-18); Calcium 8.4 mg/dL (8.5-10.1); Chloride 101 meq/L (98-107); Glomerular Filtration Rate Greater Than 89 mL/min (>89); Glucose,Random 152 mg/dL (74-106); Potassium 4.2 meq/L (3.5-5.1); Sodium 141 meq/L (136-145); Total Protein 6.4 g/dL (6.4-8.2)
[2018-10-03] MEDS ORDERED: Acetaminophen 325 MG Tablet PO PRN (14:33)
[2018-10-03] MEDS ORDERED: Potassium Chlor 20 mEq Premix 20 MEQ/100 ML PIGGYBACK IV.SIG PRN ×2 (14:36)
[2018-10-03] MEDS ORDERED: Potassium Chloride 25 MEQ Effervescent Tablet PO PRN (14:36)
[2018-10-03] MEDS ORDERED: Potassium Chlor 40 mEq Premix 40 MEQ/100 ML PIGGYBACK IV.SIG PRN ×2 (14:36)
[2018-10-03] MEDS ORDERED: Dextrose 50% in Water 50 ML Vial IV.PUSH PRN (14:36)
[2018-10-03] MEDS ORDERED: Potassium Phosphate 500 MG Soluble Tablet PO PRN (14:36)
[2018-10-03] MEDS ORDERED: Magnesium Sulfate Inj 2 GM in Sodium Chlor 0.9% Inj 96 ML IV.SIG PRN (14:36)
[2018-10-03] MEDS ORDERED: Magnesium Oxide 400 MG Tablet PO PRN (14:36)
[2018-10-03] MEDS ORDERED: Potassium Phosphate Inj 30 MMOL in Sodium Chlor 0.9% Inj 250 ML IV.SIG PRN (14:36)
[2018-10-03] MEDS ORDERED: Magnesium Sulfate Inj 4 GM in Sodium Chlor 0.9% Inj 92 ML IV.SIG PRN (14:36)
[2018-10-03] MEDS ORDERED: Sodium Phosphate Inj 30 MMOL in Sodium Chlor 0.9% Inj 250 ML IV.SIG PRN (14:36)
--- NOTE | 2018-10-03 14:46 | P.CONCC ---
History of Present Illness Service: Critical care medicine Consult date: 10/03/18 Requesting Physician: Franky Patel Reason for Consult: Altered mental status Primary Care Provider: Franky Patel DO Chief Complaint: sob, cough History of Present Illness: This is a 68-year-old female. Date of admission 10/01/2018. Date of consultation . Past medical history includes COPD on chronic oxygen therapy at home 4-5 L, shingles requiring pregabalin, depression, hyperlipidemia. Patient does not use CPAP at home as she is claustrophobic. Patient presented to [facility] has been seen by her physician at [facility] was noted to be "pale". She is anemic and received 1 unit PRBCs at this facility. Hemoglobin currently 9.2. She was admitted as a COPD exacerbation as well and received ceftriaxone, azithromycin and methylprednisolone succinate 40 mg 4 times daily. According to and son at bedside, yesterday patient did receive hydrocodone/acetaminophen and became more confused. Correction corrective increase of 3.5-5 L. She is currently awake and oriented to place and person only. Not time. She does not know her age present in any of her or son at bedside. She is moving all 4 extremities spontaneously and shows no focal neurological motor or sensory deficits. MRI brain pending. Review of Systems Constitutional: Reports body ache(s), Denies anorexia, Denies chills, Denies daytime sleepiness, Denies excessive sweating, Denies headache(s), Denies increased appetite, Denies weakness Eyes: Denies blind spots, Denies blurry vision Ears, Nose, Mouth, and Throat: Denies abnormal hearing, Denies bleeding gums, Denies hearing loss, Denies poor balance Cardiovascular: Reports chest pain, Reports shortness of breath, Reports shortness of breath with activity, Denies chest pain at rest, Denies chest pain with activity, Denies shortness of breath when lying down, Denies shortness of breath causing sudden awakening, Denies slow heart rate Respiratory: Reports change in phlegm color, Reports chest congestion, Reports cough, Reports excessive phlegm production, Reports pain on inspiration, Reports pain with cough, Reports shortness of breath, Reports shortness of breath with activity, Reports wheezing, Denies coughing up blood Gastrointestinal: Denies abdominal pain, Denies belching, Denies heartburn, Denies nausea, Denies vomiting Genitourinary: Denies urinary incontinence, Denies urinary urgency Musculoskeletal: Denies abnormal walking, Denies stiffness Skin/Breast: Reports sores, Denies bleeding lesions, Denies boil, Denies non- healing lesions Neurologic: Reports behavioral changes, Reports confusion, Denies abnormal hearing, Denies abnormal movements, Denies abnormal speech, Denies dizziness, Denies fainting, Denies frequent falls, Denies headache(s), Denies lack of coordination, Denies localized weakness, Denies loss of vision, Denies restless legs, Denies convulsions, Denies seizure-like activity, Denies sensory deficit, Denies tingling/numbness/burning sensations Psychiatric: Reports anxiety, Reports confusion, Reports irritability, Denies depression, Denies hopelessness Endocrine: Denies cold intolerance, Denies excessive sweating Hematologic/Lymphatic: Denies easy bleeding Allergic/Immunologic: Denies GI upset with certain foods PMFSH - History History Provided By: Patient - Medical History Medical History: Medical History (Last Reviewed 10/03/18 @ 14:45 by Tang Langford MD) Smoker History of COPD History of high cholesterol History of shingles - Surgical History Surgical History: Surgical History (Last Reviewed 10/03/18 @ 14:45 by Tang Langford MD) No history of previous surgery - Family History Family History: Family History (Last Reviewed 10/03/18 @ 14:45 by Tang Langford MD) Mother COPD (chronic obstructive pulmonary disease) - Social History I have reviewed the patient's Social History: Yes - Tobacco History Second Hand Smoke Exposure: Yes Tobacco Use In Past 30 Days: Yes Smoking Status: Current every day smoker Tobacco Type: Cigarettes - Alcohol History How Often Do You Have a Drink Containing Alcohol: Never - Substance Use History Substance History: No History of Abuse - Travel History Recent Travel in the [place] Within the Last 8 Weeks: No Recent Travel Out of the Country Within the Last 8 Weeks: No - Immunization History Tetanus Immunization: Unsure Hx Influenza Vaccine This Season: Yes Medications and Allergies Active Medications: Active Medications Acetaminophen (Tylenol) 650 mg PO Q6H PRN PRN Reason: Fever/pain 1 through 10 Al Hydroxide/Mg Hydroxide (Milk Of Magnesia Liq) 30 ml PO Q12H PRN PRN Reason: Mild Constipation Albuterol (Duoneb Neb (Tammy)) 1 ampul NEB Q4HR TAMMY Albuterol (Albuterol Neb (Prn)) 2.5 mg NEB Q2HR NEB PRN PRN Reason: DYSPNEA Bisacodyl (Dulcolax Supp) 10 mg RECTAL DAILY PRN PRN Reason: SEVERE CONSITIPATION Budesonide (Pulmocort Respule Neb) 0.5 mg NEB Q12HR NEB TAMMY Chlorhexidine Gluconate (Chlorhexidine 2% Cloth) 3 pack TOPICAL DAILY@0400 TAMMY Stop: 10/07/18 03:59 Last Admin: 10/03/18 04:18 Dose: Not Given Chlorhexidine Gluconate (Chlorhexidine 2% Cloth) 3 pack TOPICAL DAILY@0400 PRN PRN Reason: Extra cloth needed Stop: 10/07/18 03:59 Dextrose (D50w Vial) 50 ml IV.PUSH UNSCH PRN PRN Reason: PER HYPOGLYCEMIA PROTOCOL Dextrose (D50w Vial) 50 ml IV.PUSH UNSCH PRN PRN Reason: PER HYPOGLYCEMIA PROTOCOL Famotidine (Pepcid) 20 mg PO BID [facility] Ferrous Sulfate (Ferosul) 325 mg PO DAILY [facility] Last Admin: 10/03/18 08:14 Dose: 325 mg Glucagon (Glucagon Inj) 1 mg OTHER UNSCH ONE Stop: 10/03/18 14:37 Glucagon (Glucagon Inj) 1 mg OTHER PRN PRN PRN Reason: for Hypoglycemia Protocol Azithromycin 250 mg/ Sodium (Chloride) 250 mls @ 250 mls/hr IV.SIG Q24H [facility] Last Infusion: 10/02/18 23:08 Dose: Infused Ceftriaxone Sodium 1,000 mg/ (Sodium Chloride) 100 mls @ 200 mls/hr IV.SIG Q24H [facility] Last Infusion: 10/02/18 18:40 Dose: Infused Sodium Chloride (Ns Inj) 1,000 mls @ 100 mls/hr IV.CONT .Q10H [facility] Last Admin: 10/03/18 09:44 Dose: 100 mls/hr Magnesium Sulfate 4 gm/ Sodium (Chloride) 100 mls @ 50 mls/hr IV.SIG UNSCH PRN PRN Reason: For Magnesium 0.9 - 1.1 mg/dL Magnesium Sulfate 2 gm/ Sodium (Chloride) 100 mls @ 50 mls/hr IV.SIG UNSCH PRN PRN Reason: For Magnesium 1.2 - 1.6 mg/dL Potassium Chloride (Kcl 40 Meq Premix Inj) 40 meq in 100 mls @ 25 mls/hr IV.SIG Q2H PRN PRN Reason: For Potassium 2.8 - 3.2 mEq/L Potassium Chloride (Kcl 20 Meq Premix Inj) 20 meq in 100 mls @ 50 mls/hr IV.SIG Q2H PRN PRN Reason: For Potassium 3.3 - 3.5 mEq/L Potassium Chloride (Kcl 40 Meq Premix Inj) 40 meq in 100 mls @ 25 mls/hr IV.SIG UNSCH PRN PRN Reason: For Potassium 3.3 - 3.5 mEq/L Potassium Chloride (Kcl 20 Meq Premix Inj) 20 meq in 100 mls @ 50 mls/hr IV.SIG Q2H PRN PRN Reason: For Potassium 2.8 - 3.2 mEq/L Potassium Phosphate 30 mmol/ (Sodium Chloride) 260 mls @ 42 mls/hr IV.SIG UNSCH PRN PRN Reason: SEE LABEL COMMENTS Sodium Phosphate 30 mmol/ (Sodium Chloride) 260 mls @ 42 mls/hr IV.SIG UNSCH PRN PRN Reason: For Phosphorus < 2.5 mg/dL Insulin Aspart (Novolog Insulin Correctional Sugar Inj) 0 unit SQ Q6HR TAMMY; Protocol Lactulose (Lactulose Liq) 30 ml PO DAILY PRN PRN Reason: SEVERE CONSITIPATION Magnesium Oxide (Mag-Ox) 800 mg PO UNSCH PRN PRN Reason: For Magnesium 1.2 - 1.6 mg/dL Methylprednisolone Sodium Succinate (Solumedrol Inj) 40 mg IV.PUSH Q8H TAMMY Nicotine (Habitrol 14 Mg Patch.24 Hr) 1 patch T-DERMAL HS [facility] Last Admin: 10/02/18 22:12 Dose: 1 patch Nystatin (Mycostatin Liq) 10 ml PO QID [facility] Ondansetron HCl (Zofran Inj) 4 mg IV.PUSH Q6H PRN PRN Reason: NAUSEA OR VOMITING Paroxetine HCl (Paxil Cr) 25 mg PO DAILY [facility] Last Admin: 10/02/18 18:08 Dose: 25 mg Patch Removal (Remove Old Patch) 1 each T-DERMAL HS [facility] Last Admin: 10/02/18 22:13 Dose: 1 each Ptownmed(Tiotropium [place] [Spiriva Respimat] 2 Puff) 0 each INH DAILY [facility] Potassium Bicarb/Potassium Chloride (K-Lyte Cl Eff) 50 meq PO UNSCH PRN PRN Reason: For Potassium 3.3 - 3.5 mEq/L Potassium Phosphate (K-Phos Original) 2,000 mg PO Q4H PRN PRN Reason: Phosphorus Less Than 2.5 mg/dL Potassium Phosphate (K-Phos Original) 2,000 mg PO UNSCH PRN PRN Reason: SEE LABEL COMMENTS Pravastatin Sodium (Pravachol) 40 mg PO DAILY [facility] Last Admin: 10/03/18 08:14 Dose: 40 mg Senna/Docusate Sodium (Nicol-Colace) 1 tab PO BID [facility] Last Admin: 10/03/18 09:44 Dose: Not Given Sennosides (Senokot) 17.2 mg PO Q12H PRN PRN Reason: Moderate Constipation Sodium Chloride (Ns Flush) 2 ml IV.FLUSH BID [facility] Last Admin: 10/03/18 08:16 Dose: 2 ml Sodium Chloride (Ns Flush) 2 ml IV.FLUSH PRN PRN PRN Reason: FLUSH AFTER USING IV ACCESS Allergies Allergy/AdvReac Type Severity Reaction Status Date / Time No Known Allergies Allergy Verified 10/01/18 15:27 Home Medications Medication Instructions Recorded Confirmed Type albuterol sulfate [ProAir HFA] 2 puff INHALATION Q4-6H PRN 06/15/18 10/01/18 History ferrous sulfate [iron] 325 mg PO DAILY 06/15/18 10/01/18 History lovastatin 40 mg PO DAILY 06/15/18 10/01/18 History tiotropium bromide [Spiriva 2 puff INHALATION DAILY 06/15/18 10/01/18 History Respimat] nystatin 10 ml PO QID 10/02/18 10/02/18 History pregabalin [Lyrica] 25 mg PO BID 10/02/18 10/02/18 History Physical Exam Vital signs: Vital Signs 10/02/18 15:46 10/02/18 16:00 10/02/18 19:32 Temperature 98.2 F Pulse Rate 76 102 H 89 Respiratory Rate 18 20 19 Blood Pressure 132/61 Pulse Oximetry 96 96 10/02/18 20:00 10/03/18 00:00 10/03/18 04:00 Temperature 98.2 F 97.4 F L 98 F Pulse Rate 103 H 113 H 105 H Respiratory Rate 22 18 18 Blood Pressure 142/63 H 152/67 H 169/70 H Pulse Oximetry 93 L 92 L 96 10/03/18 08:00 10/03/18 08:44 10/03/18 12:00 Temperature 98.5 F 98.7 F Pulse Rate 98 H 95 H 121 H Respiratory Rate 16 22 16 Blood Pressure 159/75 H 165/70 H Pulse Oximetry 97 92 L 93 L 10/03/18 12:21 Temperature Pulse Rate 95 H Respiratory Rate 22 Blood Pressure Pulse Oximetry Intake & Output 10/02/18 10/03/18 10/03/18 18:59 06:59 18:59 Intake Total 1300 / 1300 1610 / 1610 1000 / 1000 Balance 1300 / 1300 1610 / 1610 1000 / 1000 Weight 58 kg Intake: IV 1300 / 1300 1250 / 1250 1000 / 1000 NS Inj 1,000 ML @ 100 mls/hr IV 1000 / 1000 1000 / 1000 1000 / 1000 .CONT .Q10H TAMMY Rx#:[id number] Azithromycin Inj 250 MG In NS 250 / 250 Inj 250 ML @ 250 mls/hr IV.SIG Q24H TAMMY Rx#:[id number] KCl 20 mEq Premix Inj 20 meq In 200 / 200 100 ml @ 50 mls/hr IV.SIG Q2H TAMMY Rx#:[id number] Rocephin Inj 1,000 MG In NS Inj 100 / 100 100 ML @ 200 mls/hr IV.SIG Q24H TAMMY Rx#:[id number] Oral 360 / 360 Other: # Voids 2 Date of Last Bowel Movement 10/03/18 # Bowel Movements 1 - Constitutional no acute distress - Routine HEENT Exam Head: Present: normocephalic, atraumatic Eye: Present: EOMI, PERRL ENT: Present: mucous membranes moist - Routine Neck Exam Present: supple, full ROM. Absent: JVD - Routine Respiratory Exam Present: decreased breath sounds, wheezes. Absent: accessory muscle use, stridor - Routine Cardiovascular Exam Present: RRR, S1, S2. Absent: murmur - Routine Abdominal Exam Present: soft, normoactive bowel sounds - Routine Exam Patient deferred: external exam, groin exam, perineal exam - Routine Extremities Exam Absent: cyanosis, clubbing, edema - Routine Skin Exam Present: intact. Absent: cyanosis - Routine Neurological Exam Present: alert, CN II-XII intact. 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 This is currently on hold MRI brain has been ordered. Neurochecks CV: Hyperlipidemia Will hold lovastatin 40 mg daily in light of elevated LFTs. Resume when clinically indicated Currently hemodynamically stable not requiring vasopressors and her anti- pretenses Resp: Acute on chronic respiratory insufficiency secondary COPD/community acquired pneumonia Nasal cannula to maintain saturations greater than equal to 90% Incentive spirometry while awake EZ Pap/Pap every 4 hours with aerosolized therapy Lung hyperinflation protocol Airway clearance protocol Chest x-ray 10/03 revealed left lower lobe infiltrate See infectious disease for antibiotic coverage Guaifenesin 600 mg twice daily mucolytic GI: Elevated transaminases Hypoalbuminemia with moderate severe protein calorie malnutrition Advance diet as tolerated. Currently cardiac diet Famotidine for GI prophylaxis Docusate serum/senna 1 tablet twice daily for bowel regimen : Straight catheterization as needed per protocol Endo: Hyperglycemia Sliding scale insulin Accu-Cheks to maintain euglycemia/aspart insulin medium protocol Check TSH Renal: Creatinine currently within normal limits Monitor urine output Accurate I's and O's Recheck BMP in a.m. 10/04 Heme: Thrombocytosis Normocytic anemia Currently on ferrous sulfate 325 mg twice daily Received 1 unit PRBCs during/physician. Hemoccult x1 now. ID: Left lower lobe pneumonia likely community acquired pneumonia Currently on ceftriaxone and azithromycin day #3. E urine Legionella pending. Ordered blood cultures x2, influenza a and B, sputum. Uncollected pneumococcal urinary antigen pending. FEN: Replace electrolytes as clinically indicated per ICU electrolyte y protocol MSK: PT/OT evaluate and treat Access -Utilize peripheral IV. Central line if indicated Prophylaxis -GI -famotidine -DVT -SCD/holding pharmacological prophylaxis pending MRI brain Level 2 consult Code Status: Full code Discussed Condition With: and son at bedside. Patient. IMC RN. CARE plan discussed and questions answered.
[2018-10-03 15:21] LABS: Glucose,Random 157 mg/dL (74-106)
--- NOTE | 2018-10-03 15:47 | P.PNFP ---
Subjective Interval history: Delayed entry seen this am 0800 family at bedside. She is dyspneic with conversation neuralgia to back Results - Labs Result diagrams: 10/03/18 10:53 10/03/18 14:47 Abnormal lab results 10/03/18 10/03/18 10/03/18 Range/Units 01:00 10:28 10:53 RBC (4.00-5.30) mil/mm3 Hgb (11.6-15.3) gm/dL Hct (35.0-46.0) % MCH (27.0-34.0) pg MCHC (32.0-36.0) % RDW (11.6-17.2) % Plt Count (150-450) th/mm3 Neut % (Auto) (16.0-70.0) % Lymph % (Auto) (9.0-44.0) % Neut # (Auto) (1.8-7.7) th/mm3 Lymph # (Auto) (1.0-4.8) th/mm3 O2 Saturation 89 L* (90-100) % ABG pH 7.48 H 7.45 H (7.380-7.420) ABG pCO2 44 H 50 H (38-42) mmHg ABG pO2 59 L* 54 L* (61-120) mmHg ABG HCO3 32 H 34 H (22-26) mmol/L ABG O2 Content 11.4 L 11.2 L (12.0-20.0) Vol % ABG Base Excess 8.0 H 9.8 H (-2-2) mmol/L Hemoglobin 8.9 L 8.9 L (12.0-16.0) G/DL Carbon Dioxide 37.0 H (21.0-32.0) meq/L Anion Gap 3 L (5-15) meq/L BUN 20 H (7-18) mg/dL Random Glucose 152 H (74-106) mg/dL Calcium 8.4 L (8.5-10.1) mg/dL AST 40 H (15-37) U/L ALT 78 H (10-53) U/L Alkaline Phosphatase 205 H (45-117) U/L Albumin 2.8 L (3.4-5.0) g/dL 10/03/18 10/03/18 Range/Units 10:53 14:47 RBC 3.41 L (4.00-5.30) mil/mm3 Hgb 9.2 L (11.6-15.3) gm/dL Hct 29.4 L (35.0-46.0) % MCH 26.9 L (27.0-34.0) pg MCHC 31.3 L (32.0-36.0) % RDW 18.8 H (11.6-17.2) % Plt Count 603 H (150-450) th/mm3 Neut % (Auto) 92.9 H (16.0-70.0) % Lymph % (Auto) 4.9 L (9.0-44.0) % Neut # (Auto) 9.9 H (1.8-7.7) th/mm3 Lymph # (Auto) 0.5 L (1.0-4.8) th/mm3 O2 Saturation (90-100) % ABG pH (7.380-7.420) ABG pCO2 (38-42) mmHg ABG pO2 (61-120) mmHg ABG HCO3 (22-26) mmol/L ABG O2 Content (12.0-20.0) Vol % ABG Base Excess (-2-2) mmol/L Hemoglobin (12.0-16.0) G/DL Carbon Dioxide (21.0-32.0) meq/L Anion Gap (5-15) meq/L BUN (7-18) mg/dL Random Glucose 157 H (74-106) mg/dL Calcium (8.5-10.1) mg/dL AST (15-37) U/L ALT (10-53) U/L Alkaline Phosphatase (45-117) U/L Albumin (3.4-5.0) g/dL Short CBC 10/03/18 Range/Units 10:53 WBC 10.7 (4.0-11.0) th/mm3 Hgb 9.2 L (11.6-15.3) gm/dL Hct 29.4 L (35.0-46.0) % Plt Count 603 H (150-450) th/mm3 BMP 10/02/18 10/03/18 19:38 10:53 Sodium 141 Potassium 3.8 D 4.2 Chloride 101 Carbon Dioxide 37.0 H BUN 20 H Creatinine 0.62 Calcium 8.4 L Liver Function 10/03/18 Range/Units 10:53 Total Bilirubin 0.6 (0.2-1.0) mg/dL AST 40 H (15-37) U/L ALT 78 H (10-53) U/L Alkaline Phosphatase 205 H (45-117) U/L Albumin 2.8 L (3.4-5.0) g/dL - Imaging Impressions Chest X-Ray 10/03/18 00:00 CONCLUSION: Worsening left base consolidation. Physical Exam Vital signs: Vital Signs 10/02/18 15:46 10/02/18 16:00 10/02/18 19:32 Temperature 98.2 F Pulse Rate 76 102 H 89 Respiratory Rate 18 20 19 Blood Pressure 132/61 Pulse Oximetry 96 96 10/02/18 20:00 10/03/18 00:00 10/03/18 04:00 Temperature 98.2 F 97.4 F L 98 F Pulse Rate 103 H 113 H 105 H Respiratory Rate 22 18 18 Blood Pressure 142/63 H 152/67 H 169/70 H Pulse Oximetry 93 L 92 L 96 10/03/18 08:00 10/03/18 08:44 10/03/18 12:00 Temperature 98.5 F 98.7 F Pulse Rate 98 H 95 H 121 H Respiratory Rate 16 22 16 Blood Pressure 159/75 H 165/70 H Pulse Oximetry 97 92 L 93 L 10/03/18 12:21 10/03/18 14:00 10/03/18 15:12 Temperature Pulse Rate 95 H 113 H 114 H Respiratory Rate 22 26 H Blood Pressure Pulse Oximetry Intake & Output 10/02/18 10/03/18 10/03/18 18:59 06:59 18:59 Intake Total 1300 / 1300 1610 / 1610 1000 / 1000 Balance 1300 / 1300 1610 / 1610 1000 / 1000 Weight 58 kg Intake: IV 1300 / 1300 1250 / 1250 1000 / 1000 NS Inj 1,000 ML @ 100 mls/hr IV 1000 / 1000 1000 / 1000 1000 / 1000 .CONT .Q10H [facility] Rx#:[id number] Azithromycin Inj 250 MG In NS 250 / 250 Inj 250 ML @ 250 mls/hr IV.SIG Q24H [facility] Rx#:[id number] KCl 20 mEq Premix Inj 20 meq In 200 / 200 100 ml @ 50 mls/hr IV.SIG Q2H [facility] Rx#:[id number] Rocephin Inj 1,000 MG In NS Inj 100 / 100 100 ML @ 200 mls/hr IV.SIG Q24H [facility] Rx#:[id number] Oral 360 / 360 Other: # Voids 2 Date of Last Bowel Movement 10/03/18 10/03/18 # Bowel Movements 1 - Constitutional no acute distress - Routine HEENT Exam ENT: Present: mucous membranes moist - Routine Respiratory Exam Present: wheezes, diminished air movement - Routine Cardiovascular Exam Present: S1 - Routine Abdominal Exam Present: soft, normoactive bowel sounds - Routine Skin Exam Present: dry, warm - Routine Neurological Exam Present: alert Assessment and Plan - Assessment (1) Acute exacerbation of chronic obstructive airways disease Code(s): J44.1 - Chronic obstructive pulmonary disease with (acute) exacerbation Status: Acute Plan: Pulmonary consult, oxygen support, bronchodilators, Solu-Medrol (2) Pneumonia Code(s): J18.9 - Pneumonia, unspecified organism Status: Acute Plan: Pulmonary consult, cont Iv azithromycin, Rocephin. (3) Anemia Code(s): D64.9 - Anemia, unspecified Status: Acute Plan: Given unit blood, no sign of bleeding, will cont to monitor Fe supplement (4) Hypokalemia Code(s): E87.6 - Hypokalemia Status: Acute Plan: potassium 2.9 yesterday, normal this am - Assessment and Plan 10/03/18 patient seen this am, She is found in bed, alert. Family at bedside. She is dyspneic and on 4 liters. VSS. Pulmonary consulted, cxr done show worsening infiltrate. Call received from nurse at 1230-130, stating patient having trouble breathing more confused, family concerned. Nurse given order to transfer to ICU, biostatistician consult placed at that time to assist with critical care management.
[2018-10-03] MEDS: Multivitamin Inj 10 ML, Thiamine Inj 100 MG, Folic Acid Inj 1 MG in Sodium Chlor 0.9% I... IV.SIG SCH (16:22)
[2018-10-03 16:39] LABS: Vitamin B12 1399 pg/mL (193-986)
[2018-10-03] MEDS: Nystatin Liq 500,000 UNIT/5 ML UDC PO SCH ×2 (17:20→20:41)
[2018-10-03] MEDS: Insulin NovoLOG Aspart Correctional Sugar Inj SQ SCH (17:20)
[2018-10-03] MEDS: guaiFENesin 600 MG ER Tablet PO SCH (20:41)
[2018-10-03] MEDS: Melatonin 5 MG Tablet PO PRN (20:48)
[2018-10-03] MEDS: Azithromycin Inj 250 MG in Sodium Chlor 0.9% Inj 250 ML IV.SIG SCH (22:37)
[2018-10-04] MEDS: Insulin NovoLOG Aspart Correctional Sugar Inj SQ SCH ×5 (00:27→23:53)
[2018-10-04] MEDS: MethylPREDNISolone Sod Succinate Inj 40 MG/ML Vial IV.PUSH SCH ×3 (02:36→17:57)
[2018-10-04] MEDS: Chlorhexidine Gluconate 2% 1 Pack (2 Cloths) TOPICAL SCH (04:10)
[2018-10-04] MEDS: Sod Chloride 0.9% Inj 1,000 ML IV.CONT SCH ×2 (06:40→16:50)
[2018-10-04] MEDS: Famotidine 20 MG Tablet PO SCH ×2 (08:57→20:16)
[2018-10-04] MEDS: Senna/Docusate Sodium 8.6/50 MG Tablet PO SCH ×2 (08:57→20:17)
[2018-10-04] MEDS: Nystatin Liq 500,000 UNIT/5 ML UDC PO SCH ×4 (08:57→20:15)
[2018-10-04] MEDS: guaiFENesin 600 MG ER Tablet PO SCH ×2 (08:57→20:16)
[2018-10-04] MEDS: Ferrous Sulfate 325 MG Tablet PO SCH ×2 (08:57→20:17)
[2018-10-04] MEDS: Ascorbic Acid 500 MG Tablet PO SCH (08:57)
[2018-10-04 10:43] LABS: Baso % (Auto) 0.1 % (0.0-2.0); Hematocrit 26.9 % (35.0-46.0); Hemoglobin 8.4 gm/dL (11.6-15.3); Lymph # (Auto) 0.4 th/mm3 (1.0-4.8); Lymph % (Auto) 4.6 % (9.0-44.0); Mean Corpuscular Hemoglobin 26.7 pg (27.0-34.0); Mean Corpuscular Volume 86.1 fL (80.0-100.0); Mean Platelet Volume 6.7 fL (7.0-11.0); Mono # (Auto) 0.3 th/mm3 (0.0-0.9); Mono % (Auto) 4.1 % (0.0-8.0); Neut # (Auto) 7.6 th/mm3 (1.8-7.7); Neut % (Auto) 91.2 % (16.0-70.0); Platelet Count 490 th/mm3 (150-450); Red Blood Count 3.13 mil/mm3 (4.00-5.30); Red Cell Distribution Width 18.9 % (11.6-17.2); White Blood Count 8.3 th/mm3 (4.0-11.0)
[2018-10-04 11:08] LABS: Anion Gap 11 meq/L (5-15); Blood Urea Nitrogen 18 mg/dL (7-18); Carbon Dioxide 31.3 meq/L (21.0-32.0); Chloride 101 meq/L (98-107); Glomerular Filtration Rate Greater Than 89 mL/min (>89); Glucose,Random 135 mg/dL (74-106); Potassium 3.5 meq/L (3.5-5.1); Sodium 143 meq/L (136-145)
--- NOTE | 2018-10-04 11:31 | P.PNFP ---
Subjective Interval history: She is awake but not responding. Her son and are are at bedside and she is now stable in the ICU on BiPap. Results - Labs Result diagrams: 10/04/18 10:27 10/04/18 10:27 Abnormal lab results 10/03/18 10/03/18 10/03/18 Range/Units 10:53 14:47 17:14 RBC (4.00-5.30) mil/mm3 Hgb (11.6-15.3) gm/dL Hct (35.0-46.0) % MCH (27.0-34.0) pg MCHC (32.0-36.0) % RDW (11.6-17.2) % Plt Count (150-450) th/mm3 MPV (7.0-11.0) fL Neut % (Auto) (16.0-70.0) % Lymph % (Auto) (9.0-44.0) % Lymph # (Auto) (1.0-4.8) th/mm3 Carbon Dioxide 37.0 H (21.0-32.0) meq/L Anion Gap 3 L (5-15) meq/L BUN 20 H (7-18) mg/dL Creatinine (0.50-1.00) mg/dL POC Glucose 159 H (68-110) mg/dl Random Glucose 152 H 157 H (74-106) mg/dL Calcium 8.4 L (8.5-10.1) mg/dL AST 40 H (15-37) U/L ALT 78 H (10-53) U/L Alkaline Phosphatase 205 H (45-117) U/L Albumin 2.8 L (3.4-5.0) g/dL Vitamin B12 1399 H (193-986) pg/mL 10/04/18 10/04/18 10/04/18 Range/Units 00:16 05:53 10:27 RBC 3.13 L (4.00-5.30) mil/mm3 Hgb 8.4 L (11.6-15.3) gm/dL Hct 26.9 L (35.0-46.0) % MCH 26.7 L (27.0-34.0) pg MCHC 31.0 L (32.0-36.0) % RDW 18.9 H (11.6-17.2) % Plt Count 490 H (150-450) th/mm3 MPV 6.7 L (7.0-11.0) fL Neut % (Auto) 91.2 H (16.0-70.0) % Lymph % (Auto) 4.6 L (9.0-44.0) % Lymph # (Auto) 0.4 L (1.0-4.8) th/mm3 Carbon Dioxide (21.0-32.0) meq/L Anion Gap (5-15) meq/L BUN (7-18) mg/dL Creatinine (0.50-1.00) mg/dL POC Glucose 183 H 136 H (68-110) mg/dl Random Glucose (74-106) mg/dL Calcium (8.5-10.1) mg/dL AST (15-37) U/L ALT (10-53) U/L Alkaline Phosphatase (45-117) U/L Albumin (3.4-5.0) g/dL Vitamin B12 (193-986) pg/mL 10/04/18 Range/Units 10:27 RBC (4.00-5.30) mil/mm3 Hgb (11.6-15.3) gm/dL Hct (35.0-46.0) % MCH (27.0-34.0) pg MCHC (32.0-36.0) % RDW (11.6-17.2) % Plt Count (150-450) th/mm3 MPV (7.0-11.0) fL Neut % (Auto) (16.0-70.0) % Lymph % (Auto) (9.0-44.0) % Lymph # (Auto) (1.0-4.8) th/mm3 Carbon Dioxide (21.0-32.0) meq/L Anion Gap (5-15) meq/L BUN (7-18) mg/dL Creatinine 0.36 L (0.50-1.00) mg/dL POC Glucose (68-110) mg/dl Random Glucose 135 H (74-106) mg/dL Calcium 8.0 L (8.5-10.1) mg/dL AST (15-37) U/L ALT (10-53) U/L Alkaline Phosphatase (45-117) U/L Albumin (3.4-5.0) g/dL Vitamin B12 (193-986) pg/mL Short CBC 10/04/18 Range/Units 10:27 WBC 8.3 (4.0-11.0) th/mm3 Hgb 8.4 L (11.6-15.3) gm/dL Hct 26.9 L (35.0-46.0) % Plt Count 490 H (150-450) th/mm3 BMP 10/03/18 10/04/18 10:53 10:27 Sodium 141 143 Potassium 4.2 3.5 Chloride 101 101 Carbon Dioxide 37.0 H 31.3 BUN 20 H 18 Creatinine 0.62 0.36 L Calcium 8.4 L 8.0 L Liver Function 10/03/18 Range/Units 10:53 Total Bilirubin 0.6 (0.2-1.0) mg/dL AST 40 H (15-37) U/L ALT 78 H (10-53) U/L Alkaline Phosphatase 205 H (45-117) U/L Albumin 2.8 L (3.4-5.0) g/dL Physical Exam Vital signs: Vital Signs 10/03/18 12:00 10/03/18 12:21 10/03/18 13:46 Temperature 98.7 F Pulse Rate 121 H 95 H 116 H Respiratory Rate 16 22 19 Blood Pressure 165/70 H Pulse Oximetry 93 L 92 L 10/03/18 14:00 10/03/18 14:30 10/03/18 15:00 Temperature Pulse Rate 113 H 112 H 110 H Respiratory Rate 22 29 H 26 H Blood Pressure 119/57 L 133/65 148/66 H Pulse Oximetry 94 L 95 93 L 10/03/18 15:12 10/03/18 15:30 10/03/18 16:00 Temperature 98.8 F Pulse Rate 114 H 118 H 110 H Respiratory Rate 26 H 33 H 30 H Blood Pressure 147/67 H 147/66 H Pulse Oximetry 93 L 96 10/03/18 18:00 10/03/18 19:00 10/03/18 19:25 Temperature Pulse Rate 112 H 117 H 116 H Respiratory Rate 51 H 23 Blood Pressure 144/67 H Pulse Oximetry 97 98 10/03/18 19:30 10/03/18 19:43 10/03/18 19:46 Temperature Pulse Rate 107 H 105 H Respiratory Rate 26 H 19 Blood Pressure 156/63 H Pulse Oximetry 99 98 10/03/18 20:00 10/03/18 20:44 10/03/18 21:00 Temperature 98.9 F Pulse Rate 119 H 114 H 116 H Respiratory Rate 27 H 22 Blood Pressure 165/70 H 136/85 Pulse Oximetry 90 L 95 95 10/03/18 21:02 10/03/18 21:31 10/03/18 22:00 Temperature Pulse Rate 114 H 118 H 115 H Respiratory Rate 31 H 33 H Blood Pressure 152/63 H 114/65 169/98 H Pulse Oximetry 91 L 89 L 10/03/18 23:00 10/03/18 23:30 10/03/18 23:36 Temperature Pulse Rate 116 H 110 H 104 H Respiratory Rate 44 H 27 H 22 Blood Pressure 159/77 H Pulse Oximetry 94 L 10/03/18 23:37 10/04/18 00:00 10/04/18 00:31 Temperature 98.8 F Pulse Rate 96 H 95 H Respiratory Rate 17 17 Blood Pressure 158/70 H 156/68 H Pulse Oximetry 95 97 96 10/04/18 01:00 10/04/18 01:03 10/04/18 01:34 Temperature Pulse Rate 103 H 109 H 94 H Respiratory Rate 34 H 29 H 17 Blood Pressure 131/73 168/74 H Pulse Oximetry 93 L 95 95 10/04/18 02:00 10/04/18 02:31 10/04/18 03:00 Temperature Pulse Rate 93 H 101 H 105 H Respiratory Rate 17 26 H 27 H Blood Pressure 156/69 H 167/75 H Pulse Oximetry 96 94 L 93 L 10/04/18 03:01 10/04/18 03:30 10/04/18 03:31 Temperature Pulse Rate 104 H 99 H 101 H Respiratory Rate 30 H 23 31 H Blood Pressure 131/61 154/67 H Pulse Oximetry 92 L 96 98 10/04/18 04:00 10/04/18 04:32 10/04/18 04:33 Temperature 97.7 F Pulse Rate 109 H 102 H 102 H Respiratory Rate 25 H 21 34 H Blood Pressure 158/65 H 182/130 H 151/69 H Pulse Oximetry 93 L 99 98 10/04/18 05:00 10/04/18 05:01 10/04/18 05:02 Temperature Pulse Rate 106 H 107 H 107 H Respiratory Rate 27 H 24 23 Blood Pressure 159/116 H 165/107 H Pulse Oximetry 93 L 92 L 91 L 10/04/18 05:07 10/04/18 05:31 10/04/18 06:00 Temperature Pulse Rate 103 H 107 H 103 H Respiratory Rate 24 30 H 22 Blood Pressure 163/92 H 157/71 H 178/78 H Pulse Oximetry 93 L 98 97 10/04/18 06:30 10/04/18 06:32 10/04/18 07:00 Temperature Pulse Rate 107 H 108 H 109 H Respiratory Rate 26 H 22 26 H Blood Pressure 189/79 H 160/78 H 166/123 H Pulse Oximetry 92 L 93 L 91 L 10/04/18 07:20 10/04/18 07:22 10/04/18 07:30 Temperature Pulse Rate 111 H 109 H 111 H Respiratory Rate 22 30 H 22 Blood Pressure 168/77 H 171/75 H Pulse Oximetry 95 97 97 10/04/18 08:00 10/04/18 08:24 10/04/18 09:00 Temperature 98.5 F Pulse Rate 121 H 120 H 121 H Respiratory Rate 32 H 39 H 34 H Blood Pressure 182/81 H 154/67 H Pulse Oximetry 89 L 92 L 93 L 10/04/18 09:22 10/04/18 10:00 10/04/18 11:06 Temperature Pulse Rate 109 H Respiratory Rate 25 H Blood Pressure Pulse Oximetry 98 98 92 L Intake & Output 10/03/18 10/04/18 10/04/18 18:59 06:59 18:59 Intake Total 1400 / 1400 2876.2 / 2876.2 Balance 1400 / 1400 2876.2 / 2876.2 Weight 57.5 kg Intake: IV 1100 / 1100 2636.2 / 2636.2 NS Inj 1,000 ML @ 100 mls/hr IV 1000 / 1000 2000 / 2000 .CONT .Q10H [facility] Rx#:[id number] Azithromycin Inj 250 MG In NS 125 / 125 Inj 250 ML @ 250 mls/hr IV.SIG Q24H [facility] Rx#:[id number] MVI-12 Inj 10 ML Thiamine Inj 511.2 / 511.2 100 MG Folvite Inj 1 MG In NS Inj 500 ML @ 125 mls/hr IV.SIG Q24H [facility] Rx#:[id number] Rocephin Inj 1,000 MG In NS Inj 100 / 100 100 ML @ 200 mls/hr IV.SIG Q24H [facility] Rx#:[id number] Oral 300 / 300 240 / 240 Other: # Incontinent Voids 2 4 Date of Last Bowel Movement 10/03/18 10/03/18 10/03/18 - Constitutional somnolent - Routine HEENT Exam Head: Present: normocephalic Eye: Present: conjunctivae pink ENT: Present: mucous membranes moist - Routine Neck Exam Present: supple - Routine Respiratory Exam Present: rhonchi, diminished air movement - Routine Cardiovascular Exam Present: RRR, S1, S2, murmur - Routine Abdominal Exam Present: soft, normoactive bowel sounds - Routine Extremities Exam Absent: cyanosis - Routine Skin Exam Present: intact - Routine Neurological Exam Present: altered mental status - Detailed Neurological Exam: Coma Scale Eye Opening: To sound Verbal Response: Sounds Motor Response: Localizing [place] Coma Scale Total: 10 - Routine Psychiatric Exam Present: unable to assess Assessment and Plan - Assessment (1) Acute exacerbation of chronic obstructive airways disease Code(s): J44.1 - Chronic obstructive pulmonary disease with (acute) exacerbation Status: Acute Plan: Pulmonary following, oxygen support on BiPap, bronchodilators, Solu-Medrol (2) Pneumonia Code(s): J18.9 - Pneumonia, unspecified organism Status: Acute Plan: Pulmonary following, cont Iv azithromycin, Rocephin. (3) Anemia Code(s): D64.9 - Anemia, unspecified Status: Acute Plan: Given unit blood, no sign of bleeding, will cont to monitor Fe supplement (4) Hypokalemia Code(s): E87.6 - Hypokalemia Status: Resolved Plan: potassium was 2.9 and is again normal this am - Assessment and Plan 10/03/18 patient seen this am, She is found in bed, alert. Family at bedside. She is dyspneic and on 4 liters. VSS. Pulmonary consulted, cxr done show worsening infiltrate. Call received from nurse at 1230-130, stating patient having trouble breathing more confused, family concerned. Nurse given order to transfer to ICU, pig machine supervisor consult placed at that time to assist with critical care management. 10/04/18 - Now in the ICU on BiPap. and son at the bedside. [place] Operator is monitoring and following. Her VS are stable. Pulmonary is following for COPD exacerbation and PNA.
--- NOTE | 2018-10-04 13:01 | P.PNCC ---
Subjective Subjective Remarks/Hospital Course: This is a 68-year-old female. Date of admission 10/01/2018. Date of consultation . Past medical history includes COPD on chronic oxygen therapy at home 4-5 L, shingles requiring pregabalin, depression, hyperlipidemia. Patient does not use CPAP at home as she is claustrophobic. Patient presented to [facility]". She is anemic and received 1 unit PRBCs at this facility. Hemoglobin currently 9.2. She was admitted as a COPD exacerbation as well and received ceftriaxone, azithromycin and methylprednisolone succinate 40 mg 4 times daily. According to and son at bedside, yesterday patient did receive hydrocodone/acetaminophen and became more confused. Correction corrective increase of 3.5-5 L. She is currently awake and oriented to place and person only. Not time. She does not know her age present in any of her or son at bedside. She is moving all 4 extremities spontaneously and shows no focal neurological motor or sensory deficits. MRI brain pending. Subjective 10/04: Afebrile. Remains confused. Currently tolerating BiPAP very well and somewhat improved from this aspect. Remains wheezy. MRI brain still pending Objective Vital Signs / I&O: Vital Signs 10/03/18 13:46 10/03/18 14:00 10/03/18 14:30 Temperature Pulse Rate 116 H 113 H 112 H Respiratory Rate 19 22 29 H Blood Pressure 119/57 L 133/65 Pulse Oximetry 92 L 94 L 95 10/03/18 15:00 10/03/18 15:12 10/03/18 15:30 Temperature Pulse Rate 110 H 114 H 118 H Respiratory Rate 26 H 26 H 33 H Blood Pressure 148/66 H 147/67 H Pulse Oximetry 93 L 93 L 10/03/18 16:00 10/03/18 18:00 10/03/18 19:00 Temperature 98.8 F Pulse Rate 110 H 112 H 117 H Respiratory Rate 30 H 51 H Blood Pressure 147/66 H Pulse Oximetry 96 97 10/03/18 19:25 10/03/18 19:30 10/03/18 19:43 Temperature Pulse Rate 116 H 107 H 105 H Respiratory Rate 23 26 H 19 Blood Pressure 144/67 H 156/63 H Pulse Oximetry 98 99 10/03/18 19:46 10/03/18 20:00 10/03/18 20:44 Temperature 98.9 F Pulse Rate 119 H 114 H Respiratory Rate 27 H Blood Pressure 165/70 H 136/85 Pulse Oximetry 98 90 L 95 10/03/18 21:00 10/03/18 21:02 10/03/18 21:31 Temperature Pulse Rate 116 H 114 H 118 H Respiratory Rate 22 31 H Blood Pressure 152/63 H 114/65 Pulse Oximetry 95 91 L 10/03/18 22:00 10/03/18 23:00 10/03/18 23:30 Temperature Pulse Rate 115 H 116 H 110 H Respiratory Rate 33 H 44 H 27 H Blood Pressure 169/98 H 159/77 H Pulse Oximetry 89 L 94 L 10/03/18 23:36 10/03/18 23:37 10/04/18 00:00 Temperature 98.8 F Pulse Rate 104 H 96 H Respiratory Rate 22 17 Blood Pressure 158/70 H Pulse Oximetry 95 97 10/04/18 00:31 10/04/18 01:00 10/04/18 01:03 Temperature Pulse Rate 95 H 103 H 109 H Respiratory Rate 17 34 H 29 H Blood Pressure 156/68 H 131/73 Pulse Oximetry 96 93 L 95 10/04/18 01:34 10/04/18 02:00 10/04/18 02:31 Temperature Pulse Rate 94 H 93 H 101 H Respiratory Rate 17 17 26 H Blood Pressure 168/74 H 156/69 H 167/75 H Pulse Oximetry 95 96 94 L 10/04/18 03:00 10/04/18 03:01 10/04/18 03:30 Temperature Pulse Rate 105 H 104 H 99 H Respiratory Rate 27 H 30 H 23 Blood Pressure 131/61 Pulse Oximetry 93 L 92 L 96 10/04/18 03:31 10/04/18 04:00 10/04/18 04:32 Temperature 97.7 F Pulse Rate 101 H 109 H 102 H Respiratory Rate 31 H 25 H 21 Blood Pressure 154/67 H 158/65 H 182/130 H Pulse Oximetry 98 93 L 99 10/04/18 04:33 10/04/18 05:00 10/04/18 05:01 Temperature Pulse Rate 102 H 106 H 107 H Respiratory Rate 34 H 27 H 24 Blood Pressure 151/69 H 159/116 H Pulse Oximetry 98 93 L 92 L 10/04/18 05:02 10/04/18 05:07 10/04/18 05:31 Temperature Pulse Rate 107 H 103 H 107 H Respiratory Rate 23 24 30 H Blood Pressure 165/107 H 163/92 H 157/71 H Pulse Oximetry 91 L 93 L 98 10/04/18 06:00 10/04/18 06:30 10/04/18 06:32 Temperature Pulse Rate 103 H 107 H 108 H Respiratory Rate 22 26 H 22 Blood Pressure 178/78 H 189/79 H 160/78 H Pulse Oximetry 97 92 L 93 L 10/04/18 07:00 10/04/18 07:20 10/04/18 07:22 Temperature Pulse Rate 109 H 111 H 109 H Respiratory Rate 26 H 22 30 H Blood Pressure 166/123 H 168/77 H Pulse Oximetry 91 L 95 97 10/04/18 07:30 10/04/18 08:00 10/04/18 08:24 Temperature 98.5 F Pulse Rate 111 H 121 H 120 H Respiratory Rate 22 32 H 39 H Blood Pressure 171/75 H 182/81 H 154/67 H Pulse Oximetry 97 89 L 92 L 10/04/18 09:00 10/04/18 09:22 10/04/18 10:00 Temperature Pulse Rate 121 H 109 H Respiratory Rate 34 H 25 H Blood Pressure Pulse Oximetry 93 L 98 98 10/04/18 11:06 10/04/18 11:37 Temperature Pulse Rate 118 H Respiratory Rate 22 Blood Pressure Pulse Oximetry 92 L Intake & Output 10/03/18 10/04/18 10/04/18 18:59 06:59 18:59 Intake Total 1400 / 1400 2876.2 / 2876.2 Balance 1400 / 1400 2876.2 / 2876.2 Weight 57.5 kg Intake: IV 1100 / 1100 2636.2 / 2636.2 NS Inj 1,000 ML @ 100 mls/hr IV 1000 / 1000 1999 / 1999 .CONT .Q10H [facility] Rx#:[id number] Azithromycin Inj 250 MG In NS 125 / 125 Inj 250 ML @ 250 mls/hr IV.SIG Q24H [facility] Rx#:[id number] [id number]-12 Inj 10 ML Thiamine Inj 511.2 / 511.2 100 MG Folvite Inj 1 MG In NS Inj 500 ML @ 125 mls/hr IV.SIG Q24H [facility] Rx#:[id number] Rocephin Inj 1,000 MG In NS Inj 100 / 100 100 ML @ 200 mls/hr IV.SIG Q24H [facility] Rx#:[id number] Oral 300 / 300 240 / 240 Other: # Incontinent Voids 2 4 Date of Last Bowel Movement 10/03/18 10/03/18 10/03/18 Result Diagrams: 10/04/18 10:27 10/04/18 10:27 Other Results: Microbiology 10/03/18 16:07 Blood - Peripheral Aerobic Blood Culture - Preliminary No growth in 1 day 10/03/18 16:07 Blood - Peripheral Anaerobic Blood Culture - Preliminary No growth in 1 day 10/03/18 16:15 Blood - Peripheral Aerobic Blood Culture - Preliminary No growth in 1 day 10/03/18 16:15 Blood - Peripheral Anaerobic Blood Culture - Preliminary No growth in 1 day 10/03/18 15:30 Nasal Wash Influenza Types A,B Antigen - Final Negative for FLU A and B antigen Infection due to influenza A or B cannot be ruled out since the antigen present in the sample may be below the detection limit of the test. Imaging: Chest X-Ray 10/01/18 15:21 CONCLUSION: Minimal linear density at the bases likely related to minimal atelectasis or consolidation. Chest CTA 10/01/18 16:01 CONCLUSION: 1. No pulmonary embolus. 2. Emphysematous change seen throughout the lungs. 3. Scattered areas of density seen throughout the lungs being most prominent at the right middle lobe and left lower lobe. These likely represent areas of consolidation or atelectasis. They can be followed. Chest X-Ray 10/03/18 00:00 CONCLUSION: Worsening left base consolidation. Objective Remarks: GENERAL: 68-year-old female currently resting in bed on BiPAP in no acute distress SKIN: Warm and dry. HEAD: Atraumatic. Normocephalic. EYES: Pupils equal and round. No scleral icterus. No injection or drainage. ENT: No nasal bleeding or discharge. Mucous membranes pink and moist. NECK: Trachea midline. No JVD. CARDIOVASCULAR: Tachycardic, RR. S1, S2. No S4. RESPIRATORY: Positive inspiratory x-ray wheeze. Diminished breath sounds throughout.. GASTROINTESTINAL: Abdomen soft, non-tender, nondistended. Signs are appreciated MUSCULOSKELETAL: Extremities without clubbing, cyanosis, or edema. No obvious deformities. NEUROLOGICAL: Awake and alert. Oriented to place and person only. No obvious cranial nerve deficits. Motor grossly within normal limits. Five out of 5 muscle strength in the arms and legs. Normal speech. PSYCHIATRIC: Anxious.. 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 This is currently on hold MRI brain has been ordered. Neurochecks CV: Hyperlipidemia Will hold lovastatin 40 mg daily in light of elevated LFTs. Resume when clinically indicated Currently hemodynamically stable not requiring vasopressors and/or antihypertensives Resp: Acute on chronic respiratory insufficiency secondary COPD/community acquired pneumonia Nasal cannula to maintain saturations greater than equal to 90% Incentive spirometry while awake EZ Pap/Pap every 4 hours with aerosolized therapy Currently on BiPAP 07/11 at 25% Lung hyperinflation protocol Airway clearance protocol Chest x-ray 10/04 revealed left lower lobe infiltrate worsening. See infectious disease for antibiotic coverage Guaifenesin 600 mg twice daily mucolytic GI: Elevated transaminases Hypoalbuminemia with moderate severe protein calorie malnutrition Advance diet as tolerated. Currently cardiac diet Famotidine for GI prophylaxis Docusate serum/senna 1 tablet twice daily for bowel regimen : Straight catheterization as needed per protocol Endo: Hyperglycemia Sliding scale insulin Accu-Cheks to maintain euglycemia/aspart insulin medium protocol TSH - 1.000 Renal: Creatinine currently within normal limits Monitor urine output Accurate I's and O's Recheck BMP in a.m. 10/05 Heme: Thrombocytosis Normocytic anemia Currently on ferrous sulfate 325 mg twice daily Received 1 unit PRBCs during/physician. Hemoccult x1 now. ID: Left lower lobe pneumonia likely community acquired pneumonia Currently on ceftriaxone and azithromycin day #4. E urine Legionella pending. Ordered blood cultures x2 no growth to date, influenza a and B negative, sputum pending. Uncollected pneumococcal urinary antigen pending. FEN: Replace electrolytes as clinically indicated per ICU electrolyte y protocol MSK: PT/OT evaluate and treat Access -Utilize peripheral IV. Central line if indicated Prophylaxis -GI -famotidine -DVT -SCD/holding pharmacological prophylaxis pending MRI brain Level 2 follow-up
--- NOTE | 2018-10-04 16:06 | P.PNPL ---
Subjective Interval history: 68 YOWF with COPD exac, Resp insuff, AMS Gets very anxious and sob Started BIPAP Has wheezing Son and at BS Physical Exam Vital signs: Vital Signs 10/03/18 18:00 10/03/18 19:00 10/03/18 19:25 Temperature Pulse Rate 112 H 117 H 116 H Respiratory Rate 51 H 23 Blood Pressure 144/67 H Pulse Oximetry 97 98 10/03/18 19:30 10/03/18 19:43 10/03/18 19:46 Temperature Pulse Rate 107 H 105 H Respiratory Rate 26 H 19 Blood Pressure 156/63 H Pulse Oximetry 99 98 10/03/18 20:00 10/03/18 20:44 10/03/18 21:00 Temperature 98.9 F Pulse Rate 119 H 114 H 116 H Respiratory Rate 27 H 22 Blood Pressure 165/70 H 136/85 Pulse Oximetry 90 L 95 95 10/03/18 21:02 10/03/18 21:31 10/03/18 22:00 Temperature Pulse Rate 114 H 118 H 115 H Respiratory Rate 31 H 33 H Blood Pressure 152/63 H 114/65 169/98 H Pulse Oximetry 91 L 89 L 10/03/18 23:00 10/03/18 23:30 10/03/18 23:36 Temperature Pulse Rate 116 H 110 H 104 H Respiratory Rate 44 H 27 H 22 Blood Pressure 159/77 H Pulse Oximetry 94 L 10/03/18 23:37 10/04/18 00:00 10/04/18 00:31 Temperature 98.8 F Pulse Rate 96 H 95 H Respiratory Rate 17 17 Blood Pressure 158/70 H 156/68 H Pulse Oximetry 95 97 96 10/04/18 01:00 10/04/18 01:03 10/04/18 01:34 Temperature Pulse Rate 103 H 109 H 94 H Respiratory Rate 34 H 29 H 17 Blood Pressure 131/73 168/74 H Pulse Oximetry 93 L 95 95 10/04/18 02:00 10/04/18 02:31 10/04/18 03:00 Temperature Pulse Rate 93 H 101 H 105 H Respiratory Rate 17 26 H 27 H Blood Pressure 156/69 H 167/75 H Pulse Oximetry 96 94 L 93 L 10/04/18 03:01 10/04/18 03:30 10/04/18 03:31 Temperature Pulse Rate 104 H 99 H 101 H Respiratory Rate 30 H 23 31 H Blood Pressure 131/61 154/67 H Pulse Oximetry 92 L 96 98 10/04/18 04:00 10/04/18 04:32 10/04/18 04:33 Temperature 97.7 F Pulse Rate 109 H 102 H 102 H Respiratory Rate 25 H 21 34 H Blood Pressure 158/65 H 182/130 H 151/69 H Pulse Oximetry 93 L 99 98 10/04/18 05:00 10/04/18 05:01 10/04/18 05:02 Temperature Pulse Rate 106 H 107 H 107 H Respiratory Rate 27 H 24 23 Blood Pressure 159/116 H 165/107 H Pulse Oximetry 93 L 92 L 91 L 10/04/18 05:07 10/04/18 05:31 10/04/18 06:00 Temperature Pulse Rate 103 H 107 H 103 H Respiratory Rate 24 30 H 22 Blood Pressure 163/92 H 157/71 H 178/78 H Pulse Oximetry 93 L 98 97 10/04/18 06:30 10/04/18 06:32 10/04/18 07:00 Temperature Pulse Rate 107 H 108 H 109 H Respiratory Rate 26 H 22 26 H Blood Pressure 189/79 H 160/78 H 166/123 H Pulse Oximetry 92 L 93 L 91 L 10/04/18 07:20 10/04/18 07:22 10/04/18 07:30 Temperature Pulse Rate 111 H 109 H 111 H Respiratory Rate 22 30 H 22 Blood Pressure 168/77 H 171/75 H Pulse Oximetry 95 97 97 10/04/18 08:00 10/04/18 08:24 10/04/18 09:00 Temperature 98.5 F Pulse Rate 121 H 120 H 121 H Respiratory Rate 32 H 39 H 34 H Blood Pressure 182/81 H 154/67 H Pulse Oximetry 89 L 92 L 93 L 10/04/18 09:22 10/04/18 10:00 10/04/18 11:00 Temperature Pulse Rate 109 H 118 H Respiratory Rate 25 H 30 H Blood Pressure Pulse Oximetry 98 98 89 L 10/04/18 11:06 10/04/18 11:37 10/04/18 12:00 Temperature 99 F Pulse Rate 118 H 116 H Respiratory Rate 22 27 H Blood Pressure 163/70 H Pulse Oximetry 92 L 91 L 10/04/18 13:00 10/04/18 15:30 10/04/18 15:39 Temperature Pulse Rate 118 H 122 H Respiratory Rate 35 H 25 H Blood Pressure Pulse Oximetry 94 L 96 Intake & Output 10/03/18 10/04/18 10/04/18 18:59 06:59 18:59 Intake Total 1400 / 1400 2876.2 / 2876.2 Balance 1400 / 1400 2876.2 / 2876.2 Weight 57.5 kg Intake: IV 1100 / 1100 2636.2 / 2636.2 NS Inj 1,000 ML @ 100 mls/hr IV 1000 / 1000 2000 / 2000 .CONT .Q10H [facility] Rx#:[id number] Azithromycin Inj 250 MG In NS 125 / 125 Inj 250 ML @ 250 mls/hr IV.SIG Q24H [facility] Rx#:[id number] MVI-12 Inj 10 ML Thiamine Inj 511.2 / 511.2 100 MG Folvite Inj 1 MG In NS Inj 500 ML @ 125 mls/hr IV.SIG Q24H [facility] Rx#:[id number] Rocephin Inj 1,000 MG In NS Inj 100 / 100 100 ML @ 200 mls/hr IV.SIG Q24H [facility] Rx#:[id number] Oral 300 / 300 240 / 240 Other: # Incontinent Voids 2 4 Date of Last Bowel Movement 10/03/18 10/03/18 10/03/18 GENERAL: MBMN Mod sob SKIN: Warm and dry. HEAD: Normocephalic. EYES: No scleral icterus. No injection or drainage. NECK: Supple, trachea midline. No JVD or lymphadenopathy. CARDIOVASCULAR: Regular rate and rhythm without murmurs, gallops, or rubs. RESPIRATORY: Breath sounds equal bilaterally. No accessory muscle use. Exp rhonchi GASTROINTESTINAL: Abdomen soft, non-tender, nondistended. MUSCULOSKELETAL: No cyanosis, or edema. BACK: Nontender without obvious deformity. No CVA tenderness. Assessment and Plan - Plan IMPRESSION: Resp Insuff COPD Exac Pneumonia AMS Anxiety disorder Nicotine use PLAN: Try BIPAP Will start Buspar for anxiety and help her tolerate BIPAP IV Solumedrol Cont Abx Aerosol nebs Nicotine patch If gets worse will need intubation DW pt, her and son at [facility]
[2018-10-04] MEDS: Multivitamin Inj 10 ML, Thiamine Inj 100 MG, Folic Acid Inj 1 MG in Sodium Chlor 0.9% I... IV.SIG SCH (16:35)
[2018-10-04] MEDS: Melatonin 5 MG Tablet PO PRN (20:15)
[2018-10-04] MEDS: Azithromycin Inj 250 MG in Sodium Chlor 0.9% Inj 250 ML IV.SIG SCH (22:33)
[2018-10-05] MEDS: MethylPREDNISolone Sod Succinate Inj 40 MG/ML Vial IV.PUSH SCH ×3 (02:45→17:10)
[2018-10-05] MEDS: Sod Chloride 0.9% Inj 1,000 ML IV.CONT SCH ×3 (02:46→21:40)
[2018-10-05 04:24] LABS: Hematocrit 26.4 % (35.0-46.0); Hemoglobin 8.5 gm/dL (11.6-15.3); Lymph # (Auto) 0.5 th/mm3 (1.0-4.8); Lymph % (Auto) 6.7 % (9.0-44.0); Mean Corpuscular HGB Conc 32.1 % (32.0-36.0); Mean Corpuscular Hemoglobin 27.2 pg (27.0-34.0); Mean Corpuscular Volume 84.8 fL (80.0-100.0); Mean Platelet Volume 6.9 fL (7.0-11.0); Mono # (Auto) 0.3 th/mm3 (0.0-0.9); Mono % (Auto) 3.4 % (0.0-8.0); Neut # (Auto) 6.6 th/mm3 (1.8-7.7); Neut % (Auto) 89.9 % (16.0-70.0); Platelet Count 453 th/mm3 (150-450); Red Blood Count 3.12 mil/mm3 (4.00-5.30); Red Cell Distribution Width 18.8 % (11.6-17.2); White Blood Count 7.3 th/mm3 (4.0-11.0)
[2018-10-05] MEDS: Chlorhexidine Gluconate 2% 1 Pack (2 Cloths) TOPICAL SCH (04:30)
[2018-10-05 05:00] LABS: Alanine Aminotransferase 56 U/L (10-53); Albumin 2.7 g/dL (3.4-5.0); Alkaline Phosphatase 150 U/L (45-117); Anion Gap 5 meq/L (5-15); Aspartate Aminotransferase 26 U/L (15-37); Blood Urea Nitrogen 16 mg/dL (7-18); Calcium 7.3 mg/dL (8.5-10.1); Carbon Dioxide 34.7 meq/L (21.0-32.0); Chloride 105 meq/L (98-107); Glomerular Filtration Rate Greater Than 89 mL/min (>89); Glucose,Random 158 mg/dL (74-106); Magnesium 2.3 mg/dL (1.5-2.5); Phosphorus 1.8 mg/dL (2.5-4.9); Potassium 3.8 meq/L (3.5-5.1); Sodium 145 meq/L (136-145); Total Protein 5.8 g/dL (6.4-8.2)
[2018-10-05 05:04] LABS: Ovalocytes 1+; Platelet Estimate Normal (Normal); Platelet Morphology Normal (Normal); Stomatocytes 1+
[2018-10-05] MEDS: Potassium Phosphate 500 MG Soluble Tablet PO PRN ×2 (05:29→09:57)
[2018-10-05] MEDS: Insulin NovoLOG Aspart Correctional Sugar Inj SQ SCH ×4 (05:45→23:55)
--- NOTE | 2018-10-05 05:57 | XR ---
EXAM DATE: 10/05/2018 5:53 AM EST AGE/SEX: 68 years / Female INDICATIONS: Shortness of breath, possible pulmonary disease. CLINICAL DATA: This is the patient's subsequent encounter. Patient reports that signs and symptoms h ave been present for 4 - 6 days and indicates a pain score of 0/10. MEDICAL/SURGICAL HISTORY: Chronic obstructive pulmonary disease. None. COMPARISON: [facility] [place] 1V SINGLE AP, 10/03/2018. . FINDINGS: Mild atelectasis and small pleural effusion again seen of the left lung base. Right lung remains lul r. No pneumothorax. Heart size stable, within normal limits. CONCLUSION: No significant change mild atelectasis and small pleural effusion at the left lung base. Electronically signed by: Pro Flores MD Board Certified Radiologist 10/05/2018 5:55 AM EST
[2018-10-05] MEDS: guaiFENesin 600 MG ER Tablet PO SCH ×2 (08:55→20:01)
[2018-10-05] MEDS: Famotidine 20 MG Tablet PO SCH ×2 (08:55→20:02)
[2018-10-05] MEDS: Ferrous Sulfate 325 MG Tablet PO SCH ×2 (08:55→20:01)
[2018-10-05] MEDS: Senna/Docusate Sodium 8.6/50 MG Tablet PO SCH ×2 (08:55→20:02)
[2018-10-05] MEDS: Ascorbic Acid 500 MG Tablet PO SCH (08:55)
[2018-10-05] MEDS: Nystatin Liq 500,000 UNIT/5 ML UDC PO SCH ×4 (08:56→20:02)
--- NOTE | 2018-10-05 10:14 | P.PNFP ---
Subjective Interval history: She is off Bipap and is on NC 02. She is awake, conversive and smiling. Results - Labs Result diagrams: 10/05/18 04:01 10/05/18 04:01 Abnormal lab results 10/04/18 10/04/18 10/04/18 Range/Units 10:27 10:27 12:25 RBC 3.13 L (4.00-5.30) mil/mm3 Hgb 8.4 L (11.6-15.3) gm/dL Hct 26.9 L (35.0-46.0) % MCH 26.7 L (27.0-34.0) pg MCHC 31.0 L (32.0-36.0) % RDW 18.9 H (11.6-17.2) % Plt Count 490 H (150-450) th/mm3 MPV 6.7 L (7.0-11.0) fL Neut % (Auto) 91.2 H (16.0-70.0) % Lymph % (Auto) 4.6 L (9.0-44.0) % Lymph # (Auto) 0.4 L (1.0-4.8) th/mm3 Basophilic Stippling (None) Ovalocytes (None) Stomatocytes (None) Carbon Dioxide (21.0-32.0) meq/L Creatinine 0.36 L (0.50-1.00) mg/dL POC Glucose 148 H (68-110) mg/dl Random Glucose 135 H (74-106) mg/dL Calcium 8.0 L (8.5-10.1) mg/dL Calcium Adj for Albumin (8.5-10.1) mg/dL Phosphorus (2.5-4.9) mg/dL ALT (10-53) U/L Alkaline Phosphatase (45-117) U/L Total Protein (6.4-8.2) g/dL Albumin (3.4-5.0) g/dL 10/04/18 10/04/18 10/05/18 Range/Units 17:56 23:50 04:01 RBC 3.12 L (4.00-5.30) mil/mm3 Hgb 8.5 L (11.6-15.3) gm/dL Hct 26.4 L (35.0-46.0) % MCH (27.0-34.0) pg MCHC (32.0-36.0) % RDW 18.8 H (11.6-17.2) % Plt Count 453 H (150-450) th/mm3 MPV 6.9 L (7.0-11.0) fL Neut % (Auto) 89.9 H (16.0-70.0) % Lymph % (Auto) 6.7 L (9.0-44.0) % Lymph # (Auto) 0.5 L (1.0-4.8) th/mm3 Basophilic Stippling Faint H (None) Ovalocytes 1+ H (None) Stomatocytes 1+ H (None) Carbon Dioxide (21.0-32.0) meq/L Creatinine (0.50-1.00) mg/dL POC Glucose 160 H 185 H (68-110) mg/dl Random Glucose (74-106) mg/dL Calcium (8.5-10.1) mg/dL Calcium Adj for Albumin (8.5-10.1) mg/dL Phosphorus (2.5-4.9) mg/dL ALT (10-53) U/L Alkaline Phosphatase (45-117) U/L Total Protein (6.4-8.2) g/dL Albumin (3.4-5.0) g/dL 10/05/18 10/05/18 Range/Units 04:01 05:41 RBC (4.00-5.30) mil/mm3 Hgb (11.6-15.3) gm/dL Hct (35.0-46.0) % MCH (27.0-34.0) pg MCHC (32.0-36.0) % RDW (11.6-17.2) % Plt Count (150-450) th/mm3 MPV (7.0-11.0) fL Neut % (Auto) (16.0-70.0) % Lymph % (Auto) (9.0-44.0) % Lymph # (Auto) (1.0-4.8) th/mm3 Basophilic Stippling (None) Ovalocytes (None) Stomatocytes (None) Carbon Dioxide 34.7 H (21.0-32.0) meq/L Creatinine 0.41 L (0.50-1.00) mg/dL POC Glucose 169 H (68-110) mg/dl Random Glucose 158 H (74-106) mg/dL Calcium 7.3 L* (8.5-10.1) mg/dL Calcium Adj for Albumin 8.3 L (8.5-10.1) mg/dL Phosphorus 1.8 L (2.5-4.9) mg/dL ALT 56 H (10-53) U/L Alkaline Phosphatase 150 H (45-117) U/L Total Protein 5.8 L D (6.4-8.2) g/dL Albumin 2.7 L (3.4-5.0) g/dL Short CBC 10/04/18 10/05/18 Range/Units 10:27 04:01 WBC 8.3 7.3 (4.0-11.0) th/mm3 Hgb 8.4 L 8.5 L (11.6-15.3) gm/dL Hct 26.9 L 26.4 L (35.0-46.0) % Plt Count 490 H 453 H (150-450) th/mm3 BMP 10/04/18 10/05/18 10:27 04:01 Sodium 143 145 Potassium 3.5 3.8 Chloride 101 105 Carbon Dioxide 31.3 34.7 H BUN 18 16 Creatinine 0.36 L 0.41 L Calcium 8.0 L 7.3 L* Liver Function 10/05/18 Range/Units 04:01 Total Bilirubin 0.6 (0.2-1.0) mg/dL AST 26 (15-37) U/L ALT 56 H (10-53) U/L Alkaline Phosphatase 150 H (45-117) U/L Albumin 2.7 L (3.4-5.0) g/dL - Imaging Impressions Chest X-Ray 10/05/18 06:00 CONCLUSION: No significant change mild atelectasis and small pleural effusion at the left lung base. Physical Exam Vital signs: Vital Signs 10/04/18 11:00 10/04/18 11:06 10/04/18 11:37 Temperature Pulse Rate 118 H 118 H Respiratory Rate 30 H 22 Blood Pressure Pulse Oximetry 89 L 92 L 10/04/18 12:00 10/04/18 13:00 10/04/18 13:24 Temperature 99 F Pulse Rate 116 H 118 H 120 H Respiratory Rate 27 H 35 H 32 H Blood Pressure 163/70 H 163/70 H Pulse Oximetry 91 L 94 L 96 10/04/18 14:00 10/04/18 14:15 10/04/18 15:00 Temperature Pulse Rate 123 H 123 H 122 H Respiratory Rate 42 H 31 H 38 H Blood Pressure 160/127 H 144/95 H 160/70 H Pulse Oximetry 96 93 L 93 L 10/04/18 15:30 10/04/18 15:39 10/04/18 16:00 Temperature 99.2 F Pulse Rate 122 H 121 H Respiratory Rate 25 H 31 H Blood Pressure 165/74 H Pulse Oximetry 96 95 10/04/18 17:00 10/04/18 18:00 10/04/18 19:00 Temperature Pulse Rate 120 H 116 H 117 H Respiratory Rate 27 H 38 H 26 H Blood Pressure 174/76 H 165/74 H 163/90 H Pulse Oximetry 95 97 94 L 10/04/18 19:30 10/04/18 20:00 10/04/18 21:00 Temperature 97.6 F Pulse Rate 101 H 122 H 111 H Respiratory Rate 24 38 H 31 H Blood Pressure 174/68 H Pulse Oximetry 97 98 97 10/04/18 21:01 10/04/18 21:04 10/04/18 22:00 Temperature Pulse Rate 111 H 117 H 120 H Respiratory Rate 32 H 41 H 36 H Blood Pressure 183/79 H 143/81 H 173/76 H Pulse Oximetry 97 96 85 L 10/04/18 23:00 10/04/18 23:32 10/04/18 23:34 Temperature Pulse Rate 109 H 101 H Respiratory Rate 39 H 25 H Blood Pressure 161/78 H Pulse Oximetry 95 98 10/05/18 00:00 10/05/18 00:01 10/05/18 00:10 Temperature 97.8 F Pulse Rate 106 H 108 H 105 H Respiratory Rate 27 H 28 H 28 H Blood Pressure 166/124 H 162/123 H Pulse Oximetry 99 99 99 10/05/18 00:12 10/05/18 01:00 10/05/18 02:00 Temperature Pulse Rate 108 H 104 H 86 Respiratory Rate 23 25 H 19 Blood Pressure 163/67 H 169/70 H 120/59 L Pulse Oximetry 97 99 100 10/05/18 03:00 10/05/18 03:07 10/05/18 03:16 Temperature Pulse Rate 98 H 98 H 102 H Respiratory Rate 20 21 22 Blood Pressure 149/65 H Pulse Oximetry 99 100 10/05/18 04:00 10/05/18 06:00 10/05/18 07:39 Temperature 97.5 F L Pulse Rate 104 H 109 H 110 H Respiratory Rate 25 H 20 Blood Pressure 136/71 Pulse Oximetry 99 94 L 10/05/18 08:00 10/05/18 08:20 10/05/18 08:25 Temperature Pulse Rate 114 H Respiratory Rate Blood Pressure Pulse Oximetry 96 96 Intake & Output 10/04/18 10/05/18 10/05/18 18:59 06:59 18:59 Intake Total 1380 / 1380 1876.2 / 1876.2 Output Total 900 / 900 Balance 480 / 480 1876.2 / 1876.2 Weight 57.5 kg Intake: IV 900 / 900 1636.2 / 1636.2 NS Inj 1,000 ML @ 100 mls/hr IV 800 / 800 1000 / 1000 .CONT .Q10H [facility] Rx#:[id number] Azithromycin Inj 250 MG In NS 125 / 125 Inj 250 ML @ 250 mls/hr IV.SIG Q24H [facility] Rx#:[id number] MVI-12 Inj 10 ML Thiamine Inj 511.2 / 511.2 100 MG Folvite Inj 1 MG In NS Inj 500 ML @ 125 mls/hr IV.SIG Q24H [facility] Rx#:[id number] Rocephin Inj 1,000 MG In NS Inj 100 / 100 100 ML @ 200 mls/hr IV.SIG Q24H [facility] Rx#:[id number] Oral 480 / 480 240 / 240 Output: Urine 900 / 900 Other: # Incontinent Voids 2 Date of Last Bowel Movement 10/03/18 10/03/18 10/03/18 # Bowel Movements 0 0 - Constitutional no acute distress - Routine HEENT Exam Head: Present: normocephalic, atraumatic Eye: Present: normal accommodation ENT: Present: mucous membranes moist - Routine Neck Exam Present: supple, full ROM - Routine Respiratory Exam Present: wheezes - Routine Cardiovascular Exam Present: RRR, S1, S2 - Routine Abdominal Exam Present: soft, normoactive bowel sounds - Routine Extremities Exam Present: full ROM. Absent: cyanosis - Routine Skin Exam Present: intact - Routine Neurological Exam Present: alert, oriented X3 - Detailed Neurological Exam: Coma Scale Eye Opening: Spontaneous Verbal Response: Oriented Motor Response: Obey commands [place] Coma Scale Total: 15 - Routine Psychiatric Exam Present: normal affect Assessment and Plan - Assessment (1) Acute exacerbation of chronic obstructive airways disease Code(s): J44.1 - Chronic obstructive pulmonary disease with (acute) exacerbation Status: Acute Plan: Pulmonary following, oxygen support on NC O2, bronchodilators, Solu-Medrol (2) Pneumonia Code(s): J18.9 - Pneumonia, unspecified organism Status: Acute Plan: Pulmonary following, cont Iv azithromycin, Rocephin. (3) Anemia Code(s): D64.9 - Anemia, unspecified Status: Acute Plan: Given unit blood, no sign of bleeding, will cont to monitor Fe supplement (4) Hypokalemia Code(s): E87.6 - Hypokalemia Status: Resolved Plan: potassium is again normal this am - Assessment and Plan 10/03/18 patient seen this am, She is found in bed, alert. Family at bedside. She is dyspneic and on 4 liters. VSS. Pulmonary consulted, cxr done show worsening infiltrate. Call received from nurse at 1230-130, stating patient having trouble breathing more confused, family concerned. Nurse given order to transfer to ICU, biscuit maker consult placed at that time to assist with critical care management. 10/04/18 - Now in the ICU on BiPap. and son at the bedside. Gas Pipe Layer is monitoring and following. Her VS are stable. Pulmonary is following for COPD exacerbation and PNA. 10/05/18 - She did better overnight and is no longer requiring Bipap. She is awake, alert and conversive. Son and are at bedside. Labs noted and are stable. Still some exp wheezing on the right bu overall improved.
--- NOTE | 2018-10-05 11:53 | P.PNCC ---
Subjective Subjective Remarks/Hospital Course: This is a 68-year-old female. Date of admission 10/01/2018. Date of consultation . Past medical history includes COPD on chronic oxygen therapy at home 4-5 L, shingles requiring pregabalin, depression, hyperlipidemia. Patient does not use CPAP at home as she is claustrophobic. Patient [facility] to [facility] She is anemic and received 1 unit PRBCs at this facility. Hemoglobin currently 9.2. She was admitted as a COPD exacerbation as well and received ceftriaxone, azithromycin and methylprednisolone succinate 40 mg 4 times daily. According to and son at bedside, yesterday patient did receive hydrocodone/acetaminophen and became more confused. Correction corrective increase of 3.5-5 L. She is currently awake and oriented to place and person only. Not time. She does not know her age present in any of her or son at bedside. She is moving all 4 extremities spontaneously and shows no focal neurological motor or sensory deficits. MRI brain pending. 10/04: Afebrile. Remains confused. Currently tolerating BiPAP very well and somewhat improved from this aspect. Remains wheezy. MRI brain still pending Subjective 10/05: Remains somewhat encephalopathic. Was off BiPAP all last night. We will place on todays for short period time. Still somewhat confused but appears bilious. Tolerating diet. Afebrile. Objective Vital Signs / I&O: Vital Signs 10/04/18 12:00 10/04/18 13:00 10/04/18 13:24 Temperature 99 F Pulse Rate 116 H 118 H 120 H Respiratory Rate 27 H 35 H 32 H Blood Pressure 163/70 H 163/70 H Pulse Oximetry 91 L 94 L 96 10/04/18 14:00 10/04/18 14:15 10/04/18 15:00 Temperature Pulse Rate 123 H 123 H 122 H Respiratory Rate 42 H 31 H 38 H Blood Pressure 160/127 H 144/95 H 160/70 H Pulse Oximetry 96 93 L 93 L 10/04/18 15:30 10/04/18 15:39 10/04/18 16:00 Temperature 99.2 F Pulse Rate 122 H 121 H Respiratory Rate 25 H 31 H Blood Pressure 165/74 H Pulse Oximetry 96 95 10/04/18 17:00 10/04/18 18:00 10/04/18 19:00 Temperature Pulse Rate 120 H 116 H 117 H Respiratory Rate 27 H 38 H 26 H Blood Pressure 174/76 H 165/74 H 163/90 H Pulse Oximetry 95 97 94 L 10/04/18 19:30 10/04/18 20:00 10/04/18 21:00 Temperature 97.6 F Pulse Rate 101 H 122 H 111 H Respiratory Rate 24 38 H 31 H Blood Pressure 174/68 H Pulse Oximetry 97 98 97 10/04/18 21:01 10/04/18 21:04 10/04/18 22:00 Temperature Pulse Rate 111 H 117 H 120 H Respiratory Rate 32 H 41 H 36 H Blood Pressure 183/79 H 143/81 H 173/76 H Pulse Oximetry 97 96 85 L 10/04/18 23:00 10/04/18 23:32 10/04/18 23:34 Temperature Pulse Rate 109 H 101 H Respiratory Rate 39 H 25 H Blood Pressure 161/78 H Pulse Oximetry 95 98 10/05/18 00:00 10/05/18 00:01 10/05/18 00:10 Temperature 97.8 F Pulse Rate 106 H 108 H 105 H Respiratory Rate 27 H 28 H 28 H Blood Pressure 166/124 H 162/123 H Pulse Oximetry 99 99 99 10/05/18 00:12 10/05/18 01:00 10/05/18 02:00 Temperature Pulse Rate 108 H 104 H 86 Respiratory Rate 23 25 H 19 Blood Pressure 163/67 H 169/70 H 120/59 L Pulse Oximetry 97 99 100 10/05/18 03:00 10/05/18 03:07 10/05/18 03:16 Temperature Pulse Rate 98 H 98 H 102 H Respiratory Rate 20 21 22 Blood Pressure 149/65 H Pulse Oximetry 99 100 10/05/18 04:00 10/05/18 06:00 10/05/18 07:39 Temperature 97.5 F L Pulse Rate 104 H 109 H 110 H Respiratory Rate 25 H 20 Blood Pressure 136/71 Pulse Oximetry 99 94 L 10/05/18 08:00 10/05/18 08:20 10/05/18 08:25 Temperature 98.6 F Pulse Rate 114 H Respiratory Rate 28 H Blood Pressure 152/72 H Pulse Oximetry 92 L 96 96 10/05/18 09:00 10/05/18 10:00 10/05/18 11:23 Temperature Pulse Rate 113 H 120 H Respiratory Rate 32 H 34 H Blood Pressure 118/73 143/66 H Pulse Oximetry 94 L 92 L 95 10/05/18 11:26 Temperature Pulse Rate 116 H Respiratory Rate 21 Blood Pressure Pulse Oximetry Intake & Output 10/04/18 10/05/18 10/05/18 18:59 06:59 18:59 Intake Total 1380 / 1380 1876.2 / 1876.2 1000 / 1000 Output Total 900 / 900 Balance 480 / 480 1876.2 / 1876.2 1000 / 1000 Weight 57.5 kg Intake: IV 900 / 900 1636.2 / 1636.2 1000 / 1000 NS Inj 1,000 ML @ 100 mls/hr IV 800 / 800 1000 / 1000 1000 / 1000 .CONT .Q10H [facility] Rx#:[id number] Azithromycin Inj 250 MG In NS 125 / 125 Inj 250 ML @ 250 mls/hr IV.SIG Q24H [facility] Rx#:[id number] MVI-12 Inj 10 ML Thiamine Inj 511.2 / 511.2 100 MG Folvite Inj 1 MG In NS Inj 500 ML @ 125 mls/hr IV.SIG Q24H [facility] Rx#:[id number] Rocephin Inj 1,000 MG In NS Inj 100 / 100 100 ML @ 200 mls/hr IV.SIG Q24H [facility] Rx#:[id number] Oral 480 / 480 240 / 240 Output: Urine 900 / 900 Other: # Incontinent Voids 2 Date of Last Bowel Movement 10/03/18 10/03/18 10/03/18 # Bowel Movements 0 0 Result Diagrams: 10/05/18 04:01 10/05/18 04:01 Other Results: Microbiology 10/03/18 16:07 Blood - Peripheral Aerobic Blood Culture - Preliminary No growth in 2 days 10/03/18 16:07 Blood - Peripheral Anaerobic Blood Culture - Preliminary No growth in 2 days 10/03/18 16:15 Blood - Peripheral Aerobic Blood Culture - Preliminary No growth in 2 days 10/03/18 16:15 Blood - Peripheral Anaerobic Blood Culture - Preliminary No growth in 2 days 10/03/18 15:30 Nasal Wash Influenza Types A,B Antigen - Final Negative for FLU A and B antigen Infection due to influenza A or B cannot be ruled out since the antigen present in the sample may be below the detection limit of the test. Imaging: Chest X-Ray 10/01/18 15:21 CONCLUSION: Minimal linear density at the bases likely related to minimal atelectasis or consolidation. Chest CTA 10/01/18 16:01 CONCLUSION: 1. No pulmonary embolus. 2. Emphysematous change seen throughout the lungs. 3. Scattered areas of density seen throughout the lungs being most prominent at the right middle lobe and left lower lobe. These likely represent areas of consolidation or atelectasis. They can be followed. Chest X-Ray 10/03/18 00:00 CONCLUSION: Worsening left base consolidation. Chest X-Ray 10/05/18 06:00 CONCLUSION: No significant change mild atelectasis and small pleural effusion at the left lung base. Objective Remarks: GENERAL: 68-year-old female currently resting in bed on nasal cannula in no acute distress SKIN: Warm and dry. HEAD: Atraumatic. Normocephalic. EYES: Pupils equal and round. No scleral icterus. No injection or drainage. ENT: No nasal bleeding or discharge. Mucous membranes pink and moist. NECK: Trachea midline. No JVD. CARDIOVASCULAR: Tachycardic, RR. S1, S2. No S4. RESPIRATORY: Positive inspiratory x-ray wheeze. Diminished breath sounds throughout.. GASTROINTESTINAL: Abdomen soft, non-tender, nondistended. Signs are appreciated MUSCULOSKELETAL: Extremities without clubbing, cyanosis, or edema. No obvious deformities. NEUROLOGICAL: Awake and alert. Oriented to place and person only. No obvious cranial nerve deficits. Motor grossly within normal limits. Five out of 5 muscle strength in the arms and legs. Normal speech. PSYCHIATRIC: Anxious.. 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 This is currently on hold MRI brain discontinued Neurochecks Per Dr. Ocampo recommended starting on buspirone 5 mg 3 times daily for narcotic withdrawal CV: Hyperlipidemia Will hold lovastatin 40 mg daily in light of elevated LFTs. Resume when clinically indicated Currently hemodynamically stable not requiring vasopressors and/or antihypertensives Resp: Acute on chronic respiratory insufficiency secondary COPD/community acquired pneumonia Nasal cannula to maintain saturations greater than equal to 90% Incentive spirometry while awake EZ Pap/Pap every 4 hours with aerosolized therapy Currently on BiPAP 07/11 at 25% Lung hyperinflation protocol Airway clearance protocol Chest x-ray 10/04 revealed left lower lobe infiltrate worsening.. Recheck 10/06 See infectious disease for antibiotic coverage Guaifenesin 600 mg twice daily mucolytic GI: Elevated transaminases Hypoalbuminemia with moderate severe protein calorie malnutrition Advance diet as tolerated. Currently cardiac diet Famotidine for GI prophylaxis Docusate serum/senna 1 tablet twice daily for bowel regimen : Straight catheterization as needed per protocol Endo: Hyperglycemia Sliding scale insulin Accu-Cheks to maintain euglycemia/aspart insulin medium protocol TSH - 1.000 Renal: Creatinine currently within normal limits Monitor urine output Accurate I's and O's Recheck BMP in a.m. 10/06 Heme: Thrombocytosis Normocytic anemia Leukocytosis Currently on ferrous sulfate 325 mg twice daily Received 1 unit PRBCs during/physician. Hemoccult x1 now. ID: Left lower lobe pneumonia likely community acquired pneumonia Currently on ceftriaxone and azithromycin day #5. E urine Legionella pending. Ordered blood cultures x2 no growth to date, influenza a and B negative, sputum pending. Uncollected pneumococcal urinary antigen pending. FEN: Hypophosphatemia Replace electrolytes as clinically indicated per ICU electrolyte y protocol MSK: PT/OT evaluate and treat Access -Utilize peripheral IV. Central line if indicated Prophylaxis -GI -famotidine -DVT -SCD/holding pharmacological prophylaxis pending MRI brain Level 2 follow-up
[2018-10-05] MEDS ORDERED: Potassium Phosphate Inj 30 MMOL in Sodium Chlor 0.9% Inj 250 ML IV.SIG ONE (13:00)
[2018-10-05] MEDS ORDERED: Sodium Glycerophosphate Inj 30 MMOL in Sodium Chlor 0.9% Inj 250 ML IV.SIG SCH (13:00)
--- NOTE | 2018-10-05 14:33 | P.PNPL ---
Subjective Interval history: 68 YOWF with COPD exac, Resp insuff, AMS Gets very anxious and sob Has wheezing Son and at BS Tolerating BIPAP for 3 hrs Gets anxious Physical Exam Vital signs: Vital Signs 10/04/18 15:00 10/04/18 15:30 10/04/18 15:39 Temperature Pulse Rate 122 H 122 H Respiratory Rate 38 H 25 H Blood Pressure 160/70 H Pulse Oximetry 93 L 96 10/04/18 16:00 10/04/18 17:00 10/04/18 18:00 Temperature 99.2 F Pulse Rate 121 H 120 H 116 H Respiratory Rate 31 H 27 H 38 H Blood Pressure 165/74 H 174/76 H 165/74 H Pulse Oximetry 95 95 97 10/04/18 19:00 10/04/18 19:30 10/04/18 20:00 Temperature 97.6 F Pulse Rate 117 H 101 H 122 H Respiratory Rate 26 H 24 38 H Blood Pressure 163/90 H 174/68 H Pulse Oximetry 94 L 97 98 10/04/18 21:00 10/04/18 21:01 10/04/18 21:04 Temperature Pulse Rate 111 H 111 H 117 H Respiratory Rate 31 H 32 H 41 H Blood Pressure 183/79 H 143/81 H Pulse Oximetry 97 97 96 10/04/18 22:00 10/04/18 23:00 10/04/18 23:32 Temperature Pulse Rate 120 H 109 H 101 H Respiratory Rate 36 H 39 H 25 H Blood Pressure 173/76 H 161/78 H Pulse Oximetry 85 L 95 10/04/18 23:34 10/05/18 00:00 10/05/18 00:01 Temperature 97.8 F Pulse Rate 106 H 108 H Respiratory Rate 27 H 28 H Blood Pressure 166/124 H Pulse Oximetry 98 99 99 10/05/18 00:10 10/05/18 00:12 10/05/18 01:00 Temperature Pulse Rate 105 H 108 H 104 H Respiratory Rate 28 H 23 25 H Blood Pressure 162/123 H 163/67 H 169/70 H Pulse Oximetry 99 97 99 10/05/18 02:00 10/05/18 03:00 10/05/18 03:07 Temperature Pulse Rate 86 98 H 98 H Respiratory Rate 19 20 21 Blood Pressure 120/59 L 149/65 H Pulse Oximetry 100 99 100 10/05/18 03:16 12/30/18 04:00 10/05/18 06:00 Temperature 97.5 F L Pulse Rate 102 H 104 H 109 H Respiratory Rate 22 25 H Blood Pressure 136/71 Pulse Oximetry 99 10/05/18 07:39 10/05/18 08:00 10/05/18 08:20 Temperature 98.6 F Pulse Rate 110 H 114 H Respiratory Rate 20 28 H Blood Pressure 152/72 H Pulse Oximetry 94 L 92 L 96 10/05/18 08:25 10/05/18 09:00 10/05/18 10:00 Temperature Pulse Rate 113 H 120 H Respiratory Rate 32 H 34 H Blood Pressure 118/73 143/66 H Pulse Oximetry 96 94 L 92 L 10/05/18 11:23 10/05/18 11:26 10/05/18 12:00 Temperature Pulse Rate 116 H 119 H Respiratory Rate 21 30 H Blood Pressure Pulse Oximetry 95 96 10/05/18 12:01 10/05/18 13:00 10/05/18 14:00 Temperature 98.6 F Pulse Rate 119 H 120 H 100 H Respiratory Rate 31 H 32 H Blood Pressure 158/72 H 154/75 H Pulse Oximetry 96 97 Intake & Output 10/04/18 10/05/18 10/05/18 18:59 06:59 18:59 Intake Total 1380 / 1380 1876.2 / 1876.2 1000 / 1000 Output Total 900 / 900 Balance 480 / 480 1876.2 / 1876.2 1000 / 1000 Weight 57.5 kg Intake: IV 900 / 900 1636.2 / 1636.2 1000 / 1000 NS Inj 1,000 ML @ 100 mls/hr IV 800 / 800 1000 / 1000 1000 / 1000 .CONT .Q10H [facility] Rx#:[id number] Azithromycin Inj 250 MG In NS 125 / 125 Inj 250 ML @ 250 mls/hr IV.SIG Q24H [facility] Rx#:[id number] MVI-12 Inj 10 ML Thiamine Inj 511.2 / 511.2 100 MG Folvite Inj 1 MG In NS Inj 500 ML @ 125 mls/hr IV.SIG Q24H [facility] Rx#:[id number] Rocephin Inj 1,000 MG In NS Inj 100 / 100 100 ML @ 200 mls/hr IV.SIG Q24H [facility] Rx#:[id number] Oral 480 / 480 240 / 240 Output: Urine 900 / 900 Other: # Incontinent Voids 2 Date of Last Bowel Movement 10/03/18 10/03/18 10/03/18 # Bowel Movements 0 0 GENERAL: MBMN Mild sob SKIN: Warm and dry. HEAD: Normocephalic. EYES: No scleral icterus. No injection or drainage. NECK: Supple, trachea midline. No JVD or lymphadenopathy. CARDIOVASCULAR: Regular rate and rhythm without murmurs, gallops, or rubs. RESPIRATORY: Breath sounds equal bilaterally. No accessory muscle use. GASTROINTESTINAL: Abdomen soft, non-tender, nondistended. Exp rhonchi MUSCULOSKELETAL: No cyanosis, or edema. BACK: Nontender without obvious deformity. No CVA tenderness. Assessment and Plan - Plan IMPRESSION: Resp Insuff COPD Exac Pneumonia AMS Anxiety disorder Nicotine use PLAN: Cont BIPAP as tolerated Buspar for anxiety and help her tolerate BIPAP IV Solumedrol Cont Abx Aerosol nebs Nicotine patch If gets worse will need intubation DW pt, her and son at BS
[2018-10-05] MEDS: Multivitamin Inj 10 ML, Thiamine Inj 100 MG, Folic Acid Inj 1 MG in Sodium Chlor 0.9% I... IV.SIG SCH (17:11)
[2018-10-05] MEDS: Azithromycin Inj 250 MG in Sodium Chlor 0.9% Inj 250 ML IV.SIG SCH (21:34)
[2018-10-06] MEDS: MethylPREDNISolone Sod Succinate Inj 40 MG/ML Vial IV.PUSH SCH ×3 (02:35→18:09)
[2018-10-06 05:10] LABS: Baso % (Auto) 0.1 % (0.0-2.0); Hematocrit 27.1 % (35.0-46.0); Hemoglobin 8.4 gm/dL (11.6-15.3); Lymph # (Auto) 0.4 th/mm3 (1.0-4.8); Lymph % (Auto) 5.1 % (9.0-44.0); Mean Corpuscular HGB Conc 31.1 % (32.0-36.0); Mean Corpuscular Hemoglobin 26.6 pg (27.0-34.0); Mean Corpuscular Volume 85.6 fL (80.0-100.0); Mean Platelet Volume 7.4 fL (7.0-11.0); Mono # (Auto) 0.4 th/mm3 (0.0-0.9); Mono % (Auto) 5.1 % (0.0-8.0); Neut # (Auto) 7.1 th/mm3 (1.8-7.7); Neut % (Auto) 89.7 % (16.0-70.0); Platelet Count 436 th/mm3 (150-450); Red Blood Count 3.17 mil/mm3 (4.00-5.30); Red Cell Distribution Width 19.4 % (11.6-17.2); White Blood Count 7.9 th/mm3 (4.0-11.0)
[2018-10-06] MEDS: Insulin NovoLOG Aspart Correctional Sugar Inj SQ SCH ×3 (05:24→18:10)
[2018-10-06] MEDS: Chlorhexidine Gluconate 2% 1 Pack (2 Cloths) TOPICAL SCH (05:24)
[2018-10-06 05:39] LABS: Albumin 2.9 g/dL (3.4-5.0); Anion Gap 5 meq/L (5-15); Aspartate Aminotransferase 34 U/L (15-37); Blood Urea Nitrogen 17 mg/dL (7-18); Calcium 7.8 mg/dL (8.5-10.1); Chloride 105 meq/L (98-107); Glomerular Filtration Rate Greater Than 89 mL/min (>89); Glucose,Random 126 mg/dL (74-106); Magnesium 2.3 mg/dL (1.5-2.5); Potassium 4.1 meq/L (3.5-5.1); Sodium 144 meq/L (136-145)
[2018-10-06 05:44] LABS: Alanine Aminotransferase 62 U/L (10-53); Alkaline Phosphatase 141 U/L (45-117); Phosphorus 1.9 mg/dL (2.5-4.9)
[2018-10-06] MEDS: Sod Chloride 0.9% Inj 1,000 ML IV.CONT SCH ×2 (05:44→07:53)
--- NOTE | 2018-10-06 05:47 | XR ---
EXAM DATE: 10/06/2018 5:43 AM EST AGE/SEX: 68 years / Female INDICATIONS: Shortness of breath. CLINICAL DATA: This is the patient's subsequent encounter. Patient reports that signs and symptoms h ave been present for 4 - 6 days and indicates a pain score of Nonresponsive. MEDICAL/SURGICAL HISTORY: Chronic obstructive pulmonary disease. Hypercholesterolemia. Shingle s. Smoker. None. [place] [facility] [place]. . FINDINGS: The heart size is normal. There is mild increased density seen at the left base with blunting of the left costophrenic angle. The right lung is relatively clear. CONCLUSION: Persistent mild atelectasis or consolidation at the left base with a suspected mild left pleural effu [place]. Electronically signed by: Pro Marcano MD Board Certified Radiologist 10/06/2018 5:46 AM EST
[2018-10-06] MEDS: Nystatin Liq 500,000 UNIT/5 ML UDC PO SCH ×4 (08:10→21:22)
[2018-10-06] MEDS: Ascorbic Acid 500 MG Tablet PO SCH (08:10)
[2018-10-06] MEDS: Famotidine 20 MG Tablet PO SCH ×2 (08:10→21:04)
[2018-10-06] MEDS: Potassium Phosphate 500 MG Soluble Tablet PO PRN (08:10)
[2018-10-06] MEDS: Ferrous Sulfate 325 MG Tablet PO SCH ×2 (08:11→20:59)
[2018-10-06] MEDS: Senna/Docusate Sodium 8.6/50 MG Tablet PO SCH ×2 (08:11→21:04)
[2018-10-06] MEDS: guaiFENesin 600 MG ER Tablet PO SCH ×2 (08:11→21:03)
--- NOTE | 2018-10-06 11:51 | P.PNCC ---
Subjective Subjective Remarks/Hospital Course: This is a 68-year-old female. Date of admission 10/01/2018. Date of consultation . Past medical history includes COPD on chronic oxygen therapy at home 4-5 L, shingles requiring pregabalin, depression, hyperlipidemia. Patient does not use CPAP at home as she is claustrophobic. Patient presented to [facility] to [facility] "[facility]". She is anemic and received 1 unit PRBCs at this facility. Hemoglobin currently 9.2. She was admitted as a COPD exacerbation as well and received ceftriaxone, azithromycin and methylprednisolone succinate 40 mg 4 times daily. According to and son at bedside, yesterday patient did receive hydrocodone/acetaminophen and became more confused. Correction corrective increase of 3.5-5 L. She is currently awake and oriented to place and person only. Not time. She does not know her age present in any of her or son at bedside. She is moving all 4 extremities spontaneously and shows no focal neurological motor or sensory deficits. MRI brain pending. 10/04: Afebrile. Remains confused. Currently tolerating BiPAP very well and somewhat improved from this aspect. Remains wheezy. MRI brain still pending 10/05: Remains somewhat encephalopathic. Was off BiPAP all last night. We will place on todays for short period time. Still somewhat confused but appears bilious. Tolerating diet. Afebrile. Subjective 10/06: Much more awake today. Intermittently on BiPAP overnight. Requesting coffee. Tolerating diet. Positive BM. Objective Vital Signs / I&O: Vital Signs 10/05/18 12:00 10/05/18 12:01 10/05/18 13:00 Temperature 98.6 F Pulse Rate 119 H 119 H 120 H Respiratory Rate 30 H 31 H 32 H Blood Pressure 158/72 H 154/75 H Pulse Oximetry 96 96 97 10/05/18 14:00 10/05/18 15:00 10/05/18 15:01 Temperature Pulse Rate 109 H 110 H 110 H Respiratory Rate 49 H 26 H 26 H Blood Pressure 160/67 H 185/78 H Pulse Oximetry 96 96 97 10/05/18 15:37 10/05/18 16:00 10/05/18 17:00 Temperature 98.4 F Pulse Rate 109 H 109 H 110 H Respiratory Rate 20 34 H 28 H Blood Pressure 155/67 H 176/73 H Pulse Oximetry 96 96 10/05/18 17:46 10/05/18 18:00 10/05/18 19:00 Temperature Pulse Rate 117 H 111 H 109 H Respiratory Rate 37 H 32 H Blood Pressure 166/68 H 151/69 H Pulse Oximetry 96 97 10/05/18 20:00 10/05/18 20:08 10/05/18 20:21 Temperature Pulse Rate 114 H 117 H 118 H Respiratory Rate 39 H 28 H 32 H Blood Pressure 152/67 H 173/78 H Pulse Oximetry 94 L 97 93 L 10/05/18 21:00 10/05/18 22:00 10/05/18 22:01 Temperature Pulse Rate 113 H 106 H 116 H Respiratory Rate 32 H 36 H 37 H Blood Pressure 172/70 H 144/83 H Pulse Oximetry 96 95 95 10/05/18 23:00 10/05/18 23:26 10/06/18 00:00 Temperature Pulse Rate 112 H 114 H 109 H Respiratory Rate 34 H 26 H 37 H Blood Pressure 174/74 H 170/76 H Pulse Oximetry 97 96 10/06/18 00:24 10/06/18 01:00 10/06/18 02:00 Temperature Pulse Rate 108 H 111 H Respiratory Rate 31 H 29 H Blood Pressure 165/87 H 168/75 H Pulse Oximetry 97 98 98 10/06/18 03:00 10/06/18 03:03 10/06/18 03:09 Temperature Pulse Rate 109 H 108 H 109 H Respiratory Rate 33 H 30 H 31 H Blood Pressure 162/112 H 165/102 H 183/77 H Pulse Oximetry 97 97 97 10/06/18 03:11 10/06/18 03:36 10/06/18 04:00 Temperature 97.2 F L Pulse Rate 109 H 104 H 106 H Respiratory Rate 37 H 20 30 H Blood Pressure 167/81 H 171/76 H Pulse Oximetry 96 93 L 10/06/18 04:01 10/06/18 05:00 10/06/18 06:00 Temperature Pulse Rate 111 H 104 H Respiratory Rate 38 H 29 H Blood Pressure 169/89 H 152/79 H Pulse Oximetry 97 93 L 94 L 10/06/18 07:00 10/06/18 07:21 10/06/18 08:00 Temperature 98.2 F Pulse Rate 106 H 106 H 114 H Respiratory Rate 29 H 24 38 H Blood Pressure 144/105 H 157/68 H Pulse Oximetry 97 93 L 94 L 10/06/18 10:00 10/06/18 11:07 Temperature Pulse Rate 104 H 108 H Respiratory Rate 24 Blood Pressure Pulse Oximetry Intake & Output 10/05/18 10/06/18 10/06/18 18:59 06:59 18:59 Intake Total 1580 / 1580 2221.2 / 2221.2 1000 / 1000 Output Total 600 / 600 500 / 500 Balance 980 / 980 1721.2 / 1721.2 1000 / 1000 Weight 64 kg Intake: IV 1100 / 1100 2021.2 / 2021.2 1000 / 1000 NS Inj 1,000 ML @ 100 mls/hr IV 1000 / 1000 1000 / 1000 1000 / 1000 .CONT .Q10H [facility] Rx#:[id number] Azithromycin Inj 250 MG In NS 250 / 250 Inj 250 ML @ 250 mls/hr IV.SIG Q24H [facility] Rx#:[id number] MVI-12 Inj 10 ML Thiamine Inj 511.2 / 511.2 100 MG Folvite Inj 1 MG In NS Inj 500 ML @ 125 mls/hr IV.SIG Q24H [facility] Rx#:[id number] Potassium Phosphate Inj 30 MMOL 260 / 260 In NS Inj 250 ML @ 43.333 mls/ hr IV.SIG ONCE ONE Rx#:[id number] Rocephin Inj 1,000 MG In NS Inj 100 / 100 100 ML @ 200 mls/hr IV.SIG Q24H [facility] Rx#:[id number] Oral 480 / 480 200 / 200 Output: Urine 600 / 600 500 / 500 Other: # Incontinent Voids 1 Date of Last Bowel Movement 10/03/18 10/06/18 10/06/18 # Bowel Movements 0 1 Result Diagrams: 10/06/18 03:50 10/06/18 03:50 Other Results: Microbiology 10/03/18 16:07 Blood - Peripheral Aerobic Blood Culture - Preliminary No growth in 3 days 10/03/18 16:07 Blood - Peripheral Anaerobic Blood Culture - Preliminary No growth in 3 days 10/03/18 16:15 Blood - Peripheral Aerobic Blood Culture - Preliminary No growth in 3 days 10/03/18 16:15 Blood - Peripheral Anaerobic Blood Culture - Preliminary No growth in 3 days 10/03/18 15:30 Nasal Wash Influenza Types A,B Antigen - Final Negative for FLU A and B antigen Infection due to influenza A or B cannot be ruled out since the antigen present in the sample may be below the detection limit of the test. Imaging: ITS Impressions Chest CTA 10/01/18 16:01 CONCLUSION: 1. No pulmonary embolus. 2. Emphysematous change seen throughout the lungs. 3. Scattered areas of density seen throughout the lungs being most prominent at the right middle lobe and left lower lobe. These likely represent areas of consolidation or atelectasis. They can be followed. Chest X-Ray 10/06/18 06:00 CONCLUSION: Persistent mild atelectasis or consolidation at the left base with a suspected mild left pleural effusion. Objective Remarks: GENERAL: 68-year-old female currently resting in bed on nasal cannula in no acute distress SKIN: Warm and dry. HEAD: Atraumatic. Normocephalic. EYES: Pupils equal and round. No scleral icterus. No injection or drainage. ENT: No nasal bleeding or discharge. Mucous membranes pink and moist. NECK: Trachea midline. No JVD. CARDIOVASCULAR: Tachycardic, RR. S1, S2. No S4. RESPIRATORY: Positive inspiratory x-ray wheeze. Diminished breath sounds throughout.. GASTROINTESTINAL: Abdomen soft, non-tender, nondistended. Signs are appreciated MUSCULOSKELETAL: Extremities without clubbing, cyanosis, or edema. No obvious deformities. NEUROLOGICAL: Awake and alert. Oriented to place and person only. No obvious cranial nerve deficits. Motor grossly within normal limits. Five out of 5 muscle strength in the arms and legs. Normal speech. 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 This is currently on hold MRI brain discontinued Neurochecks Per Dr. Ocampo recommended starting on buspirone 5 mg 3 times daily for narcotic withdrawal CV: Hyperlipidemia Will hold lovastatin 40 mg daily in light of elevated LFTs. Resume when clinically indicated Currently hemodynamically stable not requiring vasopressors and/or antihypertensives Resp: Acute on chronic respiratory insufficiency secondary COPD/community acquired pneumonia Nasal cannula to maintain saturations greater than equal to 90% Incentive spirometry while awake EZ Pap/Pap every 4 hours with aerosolized therapy albuterol/ipratropium every 4 hours/every 2 hours as needed dyspnea albuterol Currently dimensionally on BiPAP Lung hyperinflation protocol Airway clearance protocol Chest x-ray 10/04 revealed left lower lobe infiltrate worsening possible effusion.. Recheck 10/07 See infectious disease for antibiotic coverage Guaifenesin 600 mg twice daily mucolytic GI: Elevated transaminases Hypoalbuminemia with moderate severe protein calorie malnutrition Advance diet as tolerated. Currently cardiac diet Famotidine for GI prophylaxis Docusate serum/senna 1 tablet twice daily for bowel regimen : Straight catheterization as needed per protocol Endo: Hyperglycemia Sliding scale insulin Accu-Cheks to maintain euglycemia/aspart insulin medium protocol TSH - 1.000 Renal: Creatinine currently within normal limits Monitor urine output Accurate I's and O's Recheck BMP in a.m. 10/07 Heme: Normocytic anemia Currently on ferrous sulfate 325 mg twice daily Received 1 unit PRBCs during/physician. Hemoccult x1 now. ID: Left lower lobe pneumonia likely community acquired pneumonia Currently on ceftriaxone and azithromycin day #6. E urine Legionella pending. Ordered blood cultures x2 no growth to date, influenza a and B negative, sputum pending. Uncollected pneumococcal urinary antigen pending. FEN: Hypophosphatemia Replace electrolytes as clinically indicated per ICU electrolyte y protocol MSK: PT/OT evaluate and treat Access -Utilize peripheral IV. Central line if indicated Prophylaxis -GI -famotidine -DVT -SCD/holding pharmacological prophylaxis pending MRI brain Level 2 follow-up Code Status: Full code Discussed Condition With: and son Hemant at bedside. Care plan discussed and questions answered
[2018-10-06] MEDS: Potassium Phos/Sodium Phos 250 MG Tablet PO SCH ×3 (12:58→21:03)
--- NOTE | 2018-10-06 16:23 | ECHRPT ---
Indication: SHORTNESS OF BREATH CONCLUSIONS Normal left ventricular size. Wall thickness is normal. The left ventricular systolic function is low normal with an estimated ejection fraction in the rang e of 50- 55%. Atrial septal is aneurysmal. [id number] mitral valve regurgitation. Calcification of the anterior mitral valve leaflet. Diffuse calcification of the aortic valve. The estimated pulmonary arterial pressure is 22mmHg. BP: / HR: Rhythm: Sinus MEASUREMENTS (Male / Female) Normal Values Technical Quality:Fair 2D ECHO LV Diastolic Diameter PLAX 4.8 cm 4.2 - 5.9 / 3.9 - 5.3 cm LV Systolic Diameter PLAX 3.7 cm IVS Diastolic Thickness 0.9 cm 0.6 - 1.0 / 0.6 - 0.9 cm LVPW Diastolic Thickness 0.9 cm 0.6 - 1.0 / 0.6 - 0.9 cm LV Relative Wall Thickness 0.4 RV Internal Dim ED PLAX 3.1 cm LVOT Diameter 1.9 cm Aortic Root Diameter 2.8 cm LA Systolic Diameter LX 3.6 cm 3.0 - 4.0 / 2.7 - 3.8 cm M-MODE AV Cusp Separation MM 1.9 cm DOPPLER AV Peak Velocity 158.0 cm/s AV Peak Gradient 10.0 mmHg LVOT Peak Velocity 115.0 cm/s LVOT Peak Gradient 5.3 mmHg AV Area Cont Eq pk 2.1 cm Mitral E Point Velocity 143.0 cm/s LV E' Lateral Velocity 23.0 cm/s Mitral E to LV E' Lateral Ratio 6.2 LV E' Septal Velocity 9.8 cm/s Mitral E to LV E' Septal Ratio 14.5 TR Peak Velocity 175.0 cm/s TR Peak Gradient 12.3 mmHg Right Atrial Pressure 10.0 mmHg Pulmonary Artery Systolic Pressu 22.3 mmHg Right Ventricular Systolic Press 22.3 mmHg PV Peak Velocity 156.0 cm/s PV Peak Gradient 9.7 mmHg FINDINGS LEFT VENTRICLE Normal left ventricular size. Wall thickness is normal. The left ventricular systolic function is low normal with an estimated ejection fraction in the rang e of 50- 55%. RIGHT VENTRICLE Normal right ventricular size and systolic function. LEFT ATRIUM The left atrial size is normal. RIGHT ATRIUM The right atrial size is normal. ATRIAL SEPTUM Atrial septal is aneurysmal. AORTA The aortic root and proximal ascending aorta are normal in size on limited imaging. MITRAL VALVE [id number] mitral valve regurgitation. Calcification of the anterior mitral valve leaflet. AORTIC VALVE Diffuse calcification of the aortic valve. TRICUSPID VALVE The estimated pulmonary arterial pressure is 22mmHg. PULMONARY VALVE No pulmonary valve regurgitation or stenosis. VESSELS The inferior vena cava is normal in size. PERICARDIUM No pericardial effusion. Willard Hernandez MD, FACC (Electronically Signed) Final Date:06 October 2018 16:22
--- NOTE | 2018-10-06 18:10 | P.PNPL ---
Subjective Interval history: 68 YOWF with COPD exac, Resp insuff, AMS Gets very anxious and sob Has wheezing Son and at BS Less anxious, weaned to NC Appetite poor Physical Exam Vital signs: Vital Signs 10/05/18 19:00 10/05/18 20:00 10/05/18 20:08 Temperature Pulse Rate 109 H 114 H 117 H Respiratory Rate 32 H 39 H 28 H Blood Pressure 151/69 H 152/67 H Pulse Oximetry 97 94 L 97 10/05/18 20:21 10/05/18 21:00 10/05/18 22:00 Temperature Pulse Rate 118 H 113 H 106 H Respiratory Rate 32 H 32 H 36 H Blood Pressure 173/78 H 172/70 H Pulse Oximetry 93 L 96 95 10/05/18 22:01 10/05/18 23:00 10/05/18 23:26 Temperature Pulse Rate 116 H 112 H 114 H Respiratory Rate 37 H 34 H 26 H Blood Pressure 144/83 H 174/74 H Pulse Oximetry 95 97 10/06/18 00:00 10/06/18 00:24 10/06/18 01:00 Temperature Pulse Rate 109 H 108 H Respiratory Rate 37 H 31 H Blood Pressure 170/76 H 165/87 H Pulse Oximetry 96 97 98 10/06/18 02:00 10/06/18 03:00 10/06/18 03:03 Temperature Pulse Rate 111 H 109 H 108 H Respiratory Rate 29 H 33 H 30 H Blood Pressure 168/75 H 162/112 H 165/102 H Pulse Oximetry 98 97 97 10/06/18 03:09 10/06/18 03:11 10/06/18 03:36 Temperature Pulse Rate 109 H 109 H 104 H Respiratory Rate 31 H 37 H 20 Blood Pressure 183/77 H 167/81 H Pulse Oximetry 97 96 10/06/18 04:00 10/06/18 04:01 10/06/18 05:00 Temperature 97.2 F L Pulse Rate 106 H 111 H Respiratory Rate 30 H 38 H Blood Pressure 171/76 H 169/89 H Pulse Oximetry 93 L 97 93 L 10/06/18 06:00 10/06/18 07:00 10/06/18 07:21 Temperature Pulse Rate 104 H 106 H 106 H Respiratory Rate 29 H 29 H 24 Blood Pressure 152/79 H 144/105 H Pulse Oximetry 94 L 97 93 L 10/06/18 08:00 10/06/18 09:00 10/06/18 10:00 Temperature 98.2 F Pulse Rate 114 H 109 H 108 H Respiratory Rate 38 H 38 H 31 H Blood Pressure 157/68 H 146/67 H 138/67 Pulse Oximetry 94 L 97 100 10/06/18 11:00 10/06/18 11:07 10/06/18 12:00 Temperature 98.7 F Pulse Rate 108 H 108 H 118 H Respiratory Rate 33 H 24 41 H Blood Pressure 147/64 H 151/72 H Pulse Oximetry 97 95 10/06/18 13:00 10/06/18 14:00 10/06/18 14:01 Temperature Pulse Rate 126 H 118 H 120 H Respiratory Rate 42 H 38 H 39 H Blood Pressure 158/84 H 225/91 H Pulse Oximetry 91 L 96 95 10/06/18 14:06 10/06/18 14:25 10/06/18 14:31 Temperature Pulse Rate 119 H 117 H 115 H Respiratory Rate 42 H 44 H 46 H Blood Pressure 207/91 H 176/74 H 187/79 H Pulse Oximetry 96 96 96 10/06/18 14:35 10/06/18 15:00 10/06/18 15:11 Temperature Pulse Rate 117 H 113 H 113 H Respiratory Rate 38 H 41 H 30 H Blood Pressure 160/75 H 159/72 H Pulse Oximetry 93 L 97 10/06/18 16:00 Temperature Pulse Rate 118 H Respiratory Rate 33 H Blood Pressure 153/67 H Pulse Oximetry 93 L Intake & Output 10/05/18 10/06/18 10/06/18 18:59 06:59 18:59 Intake Total 1580 / 1580 2221.2 / 2221.2 1850 / 1850 Output Total 600 / 600 500 / 500 Balance 980 / 980 1721.2 / 1721.2 1850 / 1850 Weight 64 kg Intake: IV 1100 / 1100 2021.2 / 2021.2 1850 / 1850 NS Inj 1,000 ML @ 100 mls/hr IV 1000 / 1000 1000 / 1000 1850 / 1850 .CONT .Q10H [facility] Rx#:[id number] Azithromycin Inj 250 MG In NS 250 / 250 Inj 250 ML @ 250 mls/hr IV.SIG Q24H [facility] Rx#:[id number] MVI-12 Inj 10 ML Thiamine Inj 511.2 / 511.2 100 MG Folvite Inj 1 MG In NS Inj 500 ML @ 125 mls/hr IV.SIG Q24H [facility] Rx#:[id number] Potassium Phosphate Inj 30 MMOL 260 / 260 In NS Inj 250 ML @ 43.333 mls/ hr IV.SIG ONCE ONE Rx#:[id number] Rocephin Inj 1,000 MG In NS Inj 100 / 100 100 ML @ 200 mls/hr IV.SIG Q24H [facility] Rx#:[id number] Oral 480 / 480 200 / 200 Output: Urine 600 / 600 500 / 500 Other: # Incontinent Voids 1 Date of Last Bowel Movement 10/03/18 10/06/18 10/06/18 # Bowel Movements 0 1 GENERAL: Elderly WF, mild sob SKIN: Warm and dry. HEAD: Normocephalic. EYES: No scleral icterus. No injection or drainage. NECK: Supple, trachea midline. No JVD or lymphadenopathy. CARDIOVASCULAR: Regular rate and rhythm without murmurs, gallops, or rubs. RESPIRATORY: Breath sounds equal bilaterally. No accessory muscle use. GASTROINTESTINAL: Abdomen soft, non-tender, nondistended. MUSCULOSKELETAL: No cyanosis, or edema. BACK: Nontender without obvious deformity. No CVA tenderness. Assessment and Plan - Plan IMPRESSION: Resp Insuff COPD Exac Pneumonia AMS Anxiety disorder Nicotine use PLAN: Supplement 02 with NC BIPAP prn Buspar for anxiety and help her tolerate BIPAP IV Solumedrol Cont Abx Aerosol nebs Nicotine patch If gets worse will need intubation DW pt, her and son at
[2018-10-06] MEDS ORDERED: Pregabalin 25 MG Capsule PO SCH (21:00)
[2018-10-06] MEDS: Azithromycin Inj 250 MG in Sodium Chlor 0.9% Inj 250 ML IV.SIG SCH (21:05)
[2018-10-07] MEDS: MethylPREDNISolone Sod Succinate Inj 40 MG/ML Vial IV.PUSH SCH ×3 (02:27→21:18)
[2018-10-07] MEDS: Insulin NovoLOG Aspart Correctional Sugar Inj SQ SCH ×4 (02:27→17:26)
--- NOTE | 2018-10-07 04:24 | XR ---
EXAM DATE: 10/07/2018 4:21 AM EST AGE/SEX: 68 years / Female INDICATIONS: Shortness of breath, possible pulmonary disease. CLINICAL DATA: This is the patient's subsequent encounter. Patient reports that signs and symptoms h ave been present for 1 week and indicates a pain score of 0/10. MEDICAL/SURGICAL HISTORY: Chronic obstructive pulmonary disease. Hypercholesterolemia. None. COMPARISON: [facility] – [place] CHEST 1V SINGLE AP, 10/06/2018. . FINDINGS: The heart size is normal. There is mild increased density at the bases. The mid and upper lungs are c lear. CONCLUSION: Bibasilar areas of suspected mild atelectasis or consolidation. Electronically signed by: Pro Marcano MD Board Certified Radiologist 10/07/2018 4:22 AM EST
[2018-10-07 06:05] LABS: Baso % (Auto) 0.1 % (0.0-2.0); Hematocrit 26.4 % (35.0-46.0); Hemoglobin 8.5 gm/dL (11.6-15.3); Lymph # (Auto) 0.2 th/mm3 (1.0-4.8); Lymph % (Auto) 3.5 % (9.0-44.0); Mean Corpuscular HGB Conc 32.1 % (32.0-36.0); Mean Corpuscular Hemoglobin 27.4 pg (27.0-34.0); Mean Corpuscular Volume 85.3 fL (80.0-100.0); Mean Platelet Volume 7.1 fL (7.0-11.0); Mono # (Auto) 0.3 th/mm3 (0.0-0.9); Mono % (Auto) 4.1 % (0.0-8.0); Neut # (Auto) 6.4 th/mm3 (1.8-7.7); Neut % (Auto) 92.3 % (16.0-70.0); Platelet Count 373 th/mm3 (150-450); Red Cell Distribution Width 19.5 % (11.6-17.2)
[2018-10-07 06:18] LABS: Alanine Aminotransferase 89 U/L (10-53); Albumin 2.8 g/dL (3.4-5.0); Anion Gap 2 meq/L (5-15); Aspartate Aminotransferase 49 U/L (15-37); Blood Urea Nitrogen 15 mg/dL (7-18); Calcium 8.1 mg/dL (8.5-10.1); Carbon Dioxide 42.2 meq/L (21.0-32.0); Chloride 98 meq/L (98-107); Glomerular Filtration Rate Greater Than 89 mL/min (>89); Glucose,Random 166 mg/dL (74-106); Magnesium 2.3 mg/dL (1.5-2.5); Phosphorus 2.5 mg/dL (2.5-4.9); Potassium 4.2 meq/L (3.5-5.1); Sodium 142 meq/L (136-145)
[2018-10-07 06:20] LABS: Alkaline Phosphatase 125 U/L (45-117); Total Protein 5.7 g/dL (6.4-8.2)
[2018-10-07] MEDS: Potassium Phos/Sodium Phos 250 MG Tablet PO SCH (08:16)
[2018-10-07] MEDS: Famotidine 20 MG Tablet PO SCH ×2 (08:16→21:17)
[2018-10-07] MEDS: Ascorbic Acid 500 MG Tablet PO SCH (08:16)
[2018-10-07] MEDS: guaiFENesin 600 MG ER Tablet PO SCH ×2 (08:16→21:17)
[2018-10-07] MEDS: Ferrous Sulfate 325 MG Tablet PO SCH ×2 (08:16→21:18)
[2018-10-07] MEDS: Nystatin Liq 500,000 UNIT/5 ML UDC PO SCH ×4 (08:17→21:18)
[2018-10-07] MEDS: Senna/Docusate Sodium 8.6/50 MG Tablet PO SCH ×2 (08:17→21:17)
[2018-10-07 08:19] LABS: Ovalocytes 1+
--- NOTE | 2018-10-07 12:17 | P.PNPL ---
Subjective Interval history: 68 YOWF with COPD exac, Resp insuff, AMS Gets very anxious and sob Has wheezing Less anxious, weaned to NC Appetite poor CXR basal atelactesis/consolidation Physical Exam Vital signs: Vital Signs 10/06/18 13:00 10/06/18 14:00 10/06/18 14:01 Temperature Pulse Rate 126 H 118 H 120 H Respiratory Rate 42 H 38 H 39 H Blood Pressure 158/84 H 225/91 H Pulse Oximetry 91 L 96 95 10/06/18 14:06 10/06/18 14:25 10/06/18 14:31 Temperature Pulse Rate 119 H 117 H 115 H Respiratory Rate 42 H 44 H 46 H Blood Pressure 207/91 H 176/74 H 187/79 H Pulse Oximetry 96 96 96 10/06/18 14:35 10/06/18 15:00 10/06/18 15:11 Temperature Pulse Rate 117 H 113 H 113 H Respiratory Rate 38 H 41 H 30 H Blood Pressure 160/75 H 159/72 H Pulse Oximetry 93 L 97 10/06/18 16:00 10/06/18 18:00 10/06/18 20:00 Temperature 98.2 F Pulse Rate 118 H 118 H 114 H Respiratory Rate 33 H 28 H Blood Pressure 153/67 H 137/62 Pulse Oximetry 93 L 96 10/06/18 20:27 10/06/18 22:00 10/07/18 00:00 Temperature 98.3 F Pulse Rate 112 H 96 H 101 H Respiratory Rate 25 H 24 Blood Pressure 149/67 H Pulse Oximetry 97 100 10/07/18 00:06 10/07/18 00:20 10/07/18 01:33 Temperature Pulse Rate 102 H Respiratory Rate 20 Blood Pressure Pulse Oximetry 98 92 L 10/07/18 02:00 10/07/18 03:40 10/07/18 04:00 Temperature 98.3 F Pulse Rate 91 H 99 H 104 H Respiratory Rate 23 33 H Blood Pressure 152/78 H Pulse Oximetry 95 10/07/18 06:00 10/07/18 07:00 10/07/18 07:33 Temperature Pulse Rate 95 H 88 101 H Respiratory Rate 19 18 Blood Pressure 138/63 Pulse Oximetry 100 10/07/18 08:00 10/07/18 08:01 10/07/18 09:00 Temperature Pulse Rate 106 H 105 H 111 H Respiratory Rate Blood Pressure 161/69 H 162/65 H Pulse Oximetry 98 95 10/07/18 10:00 Temperature Pulse Rate 108 H Respiratory Rate 33 H Blood Pressure 132/61 Pulse Oximetry 98 Intake & Output 10/06/18 10/07/18 10/07/18 18:59 06:59 18:59 Intake Total 2690 / 2690 650 / 650 Output Total 1999 / 1999 1000 / 1000 Balance 690 / 690 -350 / -350 Weight 63.5 kg Intake: IV 1850 / 1850 350 / 350 NS Inj 1,000 ML @ 100 mls/hr IV 1850 / 1850 .CONT .Q10H [facility] Rx#:[id number] Azithromycin Inj 250 MG In NS 250 / 250 Inj 250 ML @ 250 mls/hr IV.SIG Q24H [facility] Rx#:[id number] Rocephin Inj 1,000 MG In NS Inj 100 / 100 100 ML @ 200 mls/hr IV.SIG Q24H [facility] Rx#:[id number] Oral 840 / 840 300 / 300 Output: Urine 1999 1000 / 1000 Stool 0 / 0 Urine/Stool Mix 0 / 0 Other: Date of Last Bowel Movement 10/06/18 10/06/18 10/06/18 # Bowel Movements 0 # Incontinent Bowel Movements 0 GENERAL: Elderly WF, mild sob SKIN: Warm and dry. HEAD: Normocephalic. EYES: No scleral icterus. No injection or drainage. NECK: Supple, trachea midline. No JVD or lymphadenopathy. CARDIOVASCULAR: Regular rate and rhythm without murmurs, gallops, or rubs. RESPIRATORY: Breath sounds equal bilaterally. No accessory muscle use. GASTROINTESTINAL: Abdomen soft, non-tender, nondistended. MUSCULOSKELETAL: No cyanosis, or edema. BACK: Nontender without obvious deformity. No CVA tenderness. Assessment and Plan - Plan IMPRESSION: Resp Insuff COPD Exac Pneumonia AMS Anxiety disorder Nicotine use PLAN: Supplement 02 with NC BIPAP prn Buspar for anxiety and help her tolerate BIPAP IV Solumedrol Cont Abx Aerosol nebs Nicotine patch If gets worse will need intubation DW pt, her at BS
--- NOTE | 2018-10-07 14:14 | P.PNCC ---
Subjective Subjective Remarks/Hospital Course: This is a 68-year-old female. Date of admission 10/01/2018. Date of consultation . Past medical history includes COPD on chronic oxygen therapy at home 4-5 L, shingles requiring pregabalin, depression, hyperlipidemia. Patient does not use CPAP at home as she is claustrophobic. Patient presented to [facility] was [facility] be "[facility]". She is anemic and received 1 unit PRBCs at this facility. Hemoglobin currently 9.2. She was admitted as a COPD exacerbation as well and received ceftriaxone, azithromycin and methylprednisolone succinate 40 mg 4 times daily. According to and son at bedside, yesterday patient did receive hydrocodone/acetaminophen and became more confused. Correction corrective increase of 3.5-5 L. She is currently awake and oriented to place and person only. Not time. She does not know her age present in any of her or son at bedside. She is moving all 4 extremities spontaneously and shows no focal neurological motor or sensory deficits. MRI brain pending. 10/04: Afebrile. Remains confused. Currently tolerating BiPAP very well and somewhat improved from this aspect. Remains wheezy. MRI brain still pending 10/05: Remains somewhat encephalopathic. Was off BiPAP all last night. We will place on todays for short period time. Still somewhat confused but appears bilious. Tolerating diet. Afebrile. 10/06: Much more awake today. Intermittently on BiPAP overnight. Requesting coffee. Tolerating diet. Positive BM. Subjective 10/07: Awake and interactive. Continues to be tremulous. No new issues. Pleasant. On 2 L nasal cannula. Objective Vital Signs / I&O: Vital Signs 10/06/18 14:25 10/06/18 14:31 10/06/18 14:35 Temperature Pulse Rate 117 H 115 H 117 H Respiratory Rate 44 H 46 H 38 H Blood Pressure 176/74 H 187/79 H 160/75 H Pulse Oximetry 96 96 93 L 10/06/18 15:00 10/06/18 15:11 10/06/18 16:00 Temperature Pulse Rate 113 H 113 H 118 H Respiratory Rate 41 H 30 H 33 H Blood Pressure 159/72 H 153/67 H Pulse Oximetry 97 93 L 10/06/18 18:00 10/06/18 20:00 10/06/18 20:27 Temperature 98.2 F Pulse Rate 118 H 114 H 112 H Respiratory Rate 28 H 25 H Blood Pressure 137/62 Pulse Oximetry 96 97 10/06/18 22:00 10/07/18 00:00 10/07/18 00:06 Temperature 98.3 F Pulse Rate 96 H 101 H 102 H Respiratory Rate 24 20 Blood Pressure 149/67 H Pulse Oximetry 100 10/07/18 00:20 10/07/18 01:33 10/07/18 02:00 Temperature Pulse Rate 91 H Respiratory Rate Blood Pressure Pulse Oximetry 98 92 L 10/07/18 03:40 10/07/18 04:00 10/07/18 06:00 Temperature 98.3 F Pulse Rate 99 H 104 H 95 H Respiratory Rate 23 33 H Blood Pressure 152/78 H Pulse Oximetry 95 10/07/18 07:00 10/07/18 07:33 10/07/18 08:00 Temperature Pulse Rate 88 101 H 106 H Respiratory Rate 19 18 Blood Pressure 138/63 Pulse Oximetry 100 98 10/07/18 08:01 10/07/18 09:00 10/07/18 10:00 Temperature Pulse Rate 105 H 111 H 108 H Respiratory Rate 33 H Blood Pressure 161/69 H 162/65 H 132/61 Pulse Oximetry 95 98 10/07/18 11:00 10/07/18 12:00 10/07/18 13:18 Temperature 98.9 F Pulse Rate 100 H 97 H 108 H Respiratory Rate 26 H 23 Blood Pressure 129/62 124/60 Pulse Oximetry 100 100 Intake & Output 10/06/18 10/07/18 10/07/18 18:59 06:59 18:59 Intake Total 2690 / 2690 650 / 650 Output Total 1999 / 1999 1000 / 1000 Balance 690 / 690 -350 / -350 Weight 63.5 kg Intake: IV 1850 / 1850 350 / 350 NS Inj 1,000 ML @ 100 mls/hr IV 1850 / 1850 .CONT .Q10H [facility] Rx#:[id number] Azithromycin Inj 250 MG In NS 250 / 250 Inj 250 ML @ 250 mls/hr IV.SIG Q24H [facility] Rx#:[id number] Rocephin Inj 1,000 MG In NS Inj 100 / 100 100 ML @ 200 mls/hr IV.SIG Q24H [facility] Rx#:[id number] Oral 840 / 840 300 / 300 Output: Urine 1999 / 1999 1000 / 1000 Stool 0 / 0 Urine/Stool Mix 0 / 0 Other: Date of Last Bowel Movement 10/06/18 10/06/18 10/06/18 # Bowel Movements 0 # Incontinent Bowel Movements 0 Result Diagrams: 10/07/18 05:32 10/07/18 05:32 Other Results: Microbiology 10/03/18 16:07 Blood - Peripheral Aerobic Blood Culture - Preliminary No growth in 4 days 10/03/18 16:07 Blood - Peripheral Anaerobic Blood Culture - Preliminary No growth in 4 days 10/03/18 16:15 Blood - Peripheral Aerobic Blood Culture - Preliminary No growth in 4 days 10/03/18 16:15 Blood - Peripheral Anaerobic Blood Culture - Preliminary No growth in 4 days 10/03/18 15:30 Nasal Wash Influenza Types A,B Antigen - Final Negative for FLU A and B antigen Infection due to influenza A or B cannot be ruled out since the antigen present in the sample may be below the detection limit of the test. Imaging: Chest X-Ray 10/01/18 15:21 CONCLUSION: Minimal linear density at the bases likely related to minimal atelectasis or consolidation. Chest CTA 10/01/18 16:01 CONCLUSION: 1. No pulmonary embolus. 2. Emphysematous change seen throughout the lungs. 3. Scattered areas of density seen throughout the lungs being most prominent at the right middle lobe and left lower lobe. These likely represent areas of consolidation or atelectasis. They can be followed. Chest X-Ray 10/03/18 00:00 CONCLUSION: Worsening left base consolidation. Chest X-Ray 10/05/18 06:00 CONCLUSION: No significant change mild atelectasis and small pleural effusion at the left lung base. Chest X-Ray 10/06/18 06:00 CONCLUSION: Persistent mild atelectasis or consolidation at the left base with a suspected mild left pleural effusion. Chest X-Ray 10/07/18 06:00 CONCLUSION: Bibasilar areas of suspected mild atelectasis or consolidation. Objective Remarks: GENERAL: 68-year-old female currently resting in bed on nasal cannula in no acute distress SKIN: Warm and dry. HEAD: Atraumatic. Normocephalic. EYES: Pupils equal and round. No scleral icterus. No injection or drainage. ENT: No nasal bleeding or discharge. Mucous membranes pink and moist. NECK: Trachea midline. No JVD. CARDIOVASCULAR: Tachycardic, RR. S1, S2. No S4. RESPIRATORY: Currently only with end expiratory wheeze. Diminished breath sounds throughout.. GASTROINTESTINAL: Abdomen soft, non-tender, nondistended. Signs are appreciated MUSCULOSKELETAL: Extremities without clubbing, cyanosis, or edema. No obvious deformities. NEUROLOGICAL: Awake and alert. Oriented to place and person only. No obvious cranial nerve deficits. Motor grossly within normal limits. Five out of 5 muscle strength in the arms and legs. Normal speech. 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 This is currently on hold MRI brain discontinued Neurochecks Per Dr. Ocampo recommended starting on buspirone 5 mg 3 times daily for nicotine withdrawal CV: Hyperlipidemia Will hold lovastatin 40 mg daily in light of elevated LFTs. Resume when clinically indicated Currently hemodynamically stable not requiring vasopressors and/or antihypertensives Resp: Acute on chronic respiratory insufficiency secondary COPD/community acquired pneumonia Nasal cannula to maintain saturations greater than equal to 90% Incentive spirometry while awake EZ Pap/Pap every 4 hours with aerosolized therapy albuterol/ipratropium every 4 hours/every 2 hours as needed dyspnea albuterol Methylprednisolone succinate 40 mg IV every 12 hours Currently intermittently on BiPAP Lung hyperinflation protocol Airway clearance protocol Chest x-ray 10/07 revealed bilateral lower lobe atelectasis/infiltrate See infectious disease for antibiotic coverage Guaifenesin 600 mg twice daily mucolytic GI: Elevated transaminases Hypoalbuminemia with moderate severe protein calorie malnutrition Advance diet as tolerated. Currently cardiac diet Famotidine for GI prophylaxis Docusate serum/senna 1 tablet twice daily for bowel regimen : Straight catheterization as needed per protocol Endo: Hyperglycemia Sliding scale insulin Accu-Cheks to maintain euglycemia/aspart insulin medium protocol TSH - 1.000 Renal: Creatinine currently within normal limits Monitor urine output Accurate I's and O's Recheck BMP in a.m. 10/08 Heme: Normocytic anemia Currently on ferrous sulfate 325 mg twice daily Received 1 unit PRBCs during/physician. Hemoccult x1 now. ID: Left lower lobe pneumonia likely community acquired pneumonia Currently on ceftriaxone and azithromycin day #7. Discontinue azithromycin today 10/07 E urine Legionella pending. Ordered blood cultures x2 no growth to date, influenza a and B negative, sputum pending. Uncollected pneumococcal urinary antigen pending. FEN: Replace electrolytes as clinically indicated per ICU electrolyte y protocol MSK: PT/OT evaluate and treat Access -Utilize peripheral IV. Central line if indicated Prophylaxis -GI -famotidine -DVT -SCD/holding pharmacological prophylaxis pending MRI brain Level 2 follow-up
[2018-10-08 04:52] LABS: Baso % (Auto) 0.1 % (0.0-2.0); Hematocrit 25.4 % (35.0-46.0); Hemoglobin 8.3 gm/dL (11.6-15.3); Lymph # (Auto) 0.3 th/mm3 (1.0-4.8); Lymph % (Auto) 3.6 % (9.0-44.0); Mean Corpuscular HGB Conc 32.4 % (32.0-36.0); Mean Corpuscular Hemoglobin 27.4 pg (27.0-34.0); Mean Corpuscular Volume 84.5 fL (80.0-100.0); Mean Platelet Volume 7.3 fL (7.0-11.0); Mono # (Auto) 0.3 th/mm3 (0.0-0.9); Mono % (Auto) 3.4 % (0.0-8.0); Neut # (Auto) 6.9 th/mm3 (1.8-7.7); Neut % (Auto) 92.9 % (16.0-70.0); Platelet Count 366 th/mm3 (150-450); Red Blood Count 3.01 mil/mm3 (4.00-5.30); Red Cell Distribution Width 19.7 % (11.6-17.2); White Blood Count 7.4 th/mm3 (4.0-11.0)
[2018-10-08 05:14] LABS: Anion Gap 2 meq/L (5-15); Blood Urea Nitrogen 19 mg/dL (7-18); Calcium 8.5 mg/dL (8.5-10.1); Carbon Dioxide 43.5 meq/L (21.0-32.0); Chloride 96 meq/L (98-107); Glomerular Filtration Rate Greater Than 89 mL/min (>89); Glucose,Random 162 mg/dL (74-106); Potassium 4.3 meq/L (3.5-5.1); Sodium 141 meq/L (136-145)
--- NOTE | 2018-10-08 05:20 | XR ---
EXAM DATE: 10/08/2018 5:09 AM EST AGE/SEX: 68 years / Female INDICATIONS: Shortness of breath. CLINICAL DATA: This is the patient's subsequent encounter. Patient reports that signs and symptoms h ave been present for 1 week and indicates a pain score of Nonresponsive. MEDICAL/SURGICAL HISTORY: Chronic obstructive pulmonary disease. Hypercholesterolemia. None. COMPARISON: [facility] [place], CHEST 1V SINGLE AP, 10/07/2018. . FINDINGS: The heart size is normal. There is mild increased density at the bases. The mid and upper lungs are c lear. CONCLUSION: Mild bibasilar areas of consolidation or atelectasis. Electronically signed by: Pro Marcano MD Board Certified Radiologist 10/08/2018 5:19 AM EST
[2018-10-08] MEDS: Insulin NovoLOG Aspart Correctional Sugar Inj SQ SCH ×5 (05:35→20:45)
--- NOTE | 2018-10-08 08:33 | P.PNCC ---
Subjective Subjective Remarks/Hospital Course: This is a 68-year-old female. Date of admission 10/01/2018. Date of consultation . Past medical history includes COPD on chronic oxygen therapy at home 4-5 L, shingles requiring pregabalin, depression, hyperlipidemia. Patient does not use CPAP at home as she is claustrophobic. Patient [facility]". She is anemic and received 1 unit PRBCs at this facility. Hemoglobin currently 9.2. She was admitted as a COPD exacerbation as well and received ceftriaxone, azithromycin and methylprednisolone succinate 40 mg 4 times daily. According to and son at bedside, yesterday patient did receive hydrocodone/acetaminophen and became more confused. Correction corrective increase of 3.5-5 L. She is currently awake and oriented to place and person only. Not time. She does not know her age present in any of her or son at bedside. She is moving all 4 extremities spontaneously and shows no focal neurological motor or sensory deficits. MRI brain pending. 10/04: Afebrile. Remains confused. Currently tolerating BiPAP very well and somewhat improved from this aspect. Remains wheezy. MRI brain still pending 10/05: Remains somewhat encephalopathic. Was off BiPAP all last night. We will place on todays for short period time. Still somewhat confused but appears bilious. Tolerating diet. Afebrile. 10/06: Much more awake today. Intermittently on BiPAP overnight. Requesting coffee. Tolerating diet. Positive BM. 10/07: Awake and interactive. Continues to be tremulous. No new issues. Pleasant. On 2 L nasal cannula. Subjective /2: Not on BiPAP overnight. Currently on 3 L nasal cannula. Appears comfortable. Main slightly tremulous. Okay to transfer to floor. Objective Vital Signs / I&O: Vital Signs 10/07/18 09:00 10/07/18 10:00 10/07/18 11:00 Temperature Pulse Rate 111 H 108 H 100 H Respiratory Rate 33 H 26 H Blood Pressure 162/65 H 132/61 129/62 Pulse Oximetry 95 98 100 10/07/18 12:00 10/07/18 13:00 10/07/18 13:18 Temperature 98.9 F Pulse Rate 97 H 104 H 108 H Respiratory Rate 23 Blood Pressure 124/60 137/62 Pulse Oximetry 100 98 10/07/18 14:00 10/07/18 15:00 10/07/18 15:52 Temperature Pulse Rate 108 H 96 H 105 H Respiratory Rate 24 20 Blood Pressure 142/102 H 127/58 L Pulse Oximetry 95 100 10/07/18 16:00 10/07/18 17:00 10/07/18 17:23 Temperature Pulse Rate 111 H 113 H 113 H Respiratory Rate Blood Pressure 133/63 141/62 H Pulse Oximetry 91 L 10/07/18 19:39 10/07/18 20:00 10/07/18 22:00 Temperature 99.5 F Pulse Rate 104 H 105 H 103 H Respiratory Rate 24 28 H Blood Pressure 144/67 H Pulse Oximetry 96 94 L 10/08/18 00:00 10/08/18 00:03 10/08/18 02:00 Temperature 99.5 F Pulse Rate 105 H 103 H 101 H Respiratory Rate 28 H 24 Blood Pressure 171/74 H Pulse Oximetry 95 10/08/18 03:11 10/08/18 04:00 10/08/18 06:00 Temperature 98.5 F Pulse Rate 99 H 105 H 105 H Respiratory Rate 18 28 H Blood Pressure 145/63 H Pulse Oximetry 95 10/08/18 07:21 10/08/18 07:22 Temperature Pulse Rate 101 H Respiratory Rate 23 Blood Pressure Pulse Oximetry 98 Intake & Output 10/07/18 10/08/18 10/08/18 18:59 06:59 18:59 Intake Total 580 / 580 400 / 400 Output Total 600 / 600 800 / 800 Balance -20 / -20 -400 / -400 Weight 60 kg Intake: IV 100 / 100 Rocephin Inj 1,000 MG In NS Inj 100 / 100 100 ML @ 200 mls/hr IV.SIG Q24H [facility] Rx#:[id number] Oral 480 / 480 400 / 400 Output: Urine 600 / 600 800 / 800 Stool 0 / 0 Urine/Stool Mix 0 / 0 Other: Date of Last Bowel Movement 10/06/18 10/06/18 # Bowel Movements 0 # Incontinent Bowel Movements 0 Result Diagrams: 10/08/18 03:41 10/08/18 03:41 Other Results: Microbiology 10/03/18 16:07 Blood - Peripheral Aerobic Blood Culture - Preliminary No growth in 4 days 10/03/18 16:07 Blood - Peripheral Anaerobic Blood Culture - Preliminary No growth in 4 days 10/03/18 16:15 Blood - Peripheral Aerobic Blood Culture - Preliminary No growth in 4 days 10/03/18 16:15 Blood - Peripheral Anaerobic Blood Culture - Preliminary No growth in 4 days 10/03/18 15:30 Nasal Wash Influenza Types A,B Antigen - Final Negative for FLU A and B antigen Infection due to influenza A or B cannot be ruled out since the antigen present in the sample may be below the detection limit of the test. Imaging: Chest X-Ray 10/01/18 15:21 CONCLUSION: Minimal linear density at the bases likely related to minimal atelectasis or consolidation. Chest CTA 10/01/18 16:01 CONCLUSION: 1. No pulmonary embolus. 2. Emphysematous change seen throughout the lungs. 3. Scattered areas of density seen throughout the lungs being most prominent at the right middle lobe and left lower lobe. These likely represent areas of consolidation or atelectasis. They can be followed. Chest X-Ray 10/03/18 00:00 CONCLUSION: Worsening left base consolidation. Chest X-Ray 10/05/18 06:00 CONCLUSION: No significant change mild atelectasis and small pleural effusion at the left lung base. Chest X-Ray 10/06/18 06:00 CONCLUSION: Persistent mild atelectasis or consolidation at the left base with a suspected mild left pleural effusion. Chest X-Ray 10/07/18 06:00 CONCLUSION: Bibasilar areas of suspected mild atelectasis or consolidation. Chest X-Ray 10/08/18 06:00 CONCLUSION: Mild bibasilar areas of consolidation or atelectasis. Objective Remarks: GENERAL: 68-year-old female currently resting in bed on nasal cannula in no acute distress SKIN: Warm and dry. HEAD: Atraumatic. Normocephalic. EYES: Pupils equal and round. No scleral icterus. No injection or drainage. ENT: No nasal bleeding or discharge. Mucous membranes pink and moist. NECK: Trachea midline. No JVD. CARDIOVASCULAR: Tachycardic, RR. S1, S2. No S4. RESPIRATORY: Currently only with end expiratory wheeze. Diminished breath sounds throughout.. GASTROINTESTINAL: Abdomen soft, non-tender, nondistended. Signs are appreciated MUSCULOSKELETAL: Extremities without clubbing, cyanosis, or edema. No obvious deformities. NEUROLOGICAL: Awake and alert. Oriented to place and person and time currently. No obvious cranial nerve deficits. Motor grossly within normal limits. Five out of 5 muscle strength in the arms and legs. Normal speech. 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 This is currently on hold MRI brain discontinued Neurochecks Per Dr. Ocampo recommended starting on buspirone 5 mg 3 times daily for nicotine withdrawal CV: Hyperlipidemia Currently on pravastatin/substitution for lovastatin 40 mg daily Currently hemodynamically stable not requiring vasopressors and/or antihypertensives Resp: Acute on chronic respiratory insufficiency secondary COPD/community acquired pneumonia Nasal cannula to maintain saturations greater than equal to 90% Incentive spirometry while awake EZ Pap/Pap every 4 hours with aerosolized therapy albuterol/ipratropium every 4 hours/every 2 hours as needed dyspnea albuterol Methylprednisolone succinate 40 mg IV every 12 hours Lung hyperinflation protocol Airway clearance protocol Chest x-ray repeat 10/09 a.m. See infectious disease for antibiotic coverage Guaifenesin 600 mg twice daily mucolytic GI: Elevated transaminases Hypoalbuminemia with moderate severe protein calorie malnutrition Advance diet as tolerated. Currently cardiac diet Famotidine for GI prophylaxis Docusate serum/senna 1 tablet twice daily for bowel regimen : Straight catheterization as needed per protocol Endo: Hyperglycemia Sliding scale insulin Accu-Cheks to maintain euglycemia/aspart insulin medium protocol TSH - 1.000 Renal: Creatinine currently within normal limits Monitor urine output Accurate I's and O's Recheck BMP in a.m. 10/09 Heme: Normocytic anemia Currently on ferrous sulfate 325 mg twice daily with vitamin C 5 mg daily Received 1 unit PRBCs during/physician. Hemoccult x1 now. ID: Left lower lobe pneumonia likely community acquired pneumonia Currently on ceftriaxone day #8 discontinue azithromycin 10/07 70 treatment Ordered blood cultures x2 no growth to date, influenza a and B negative, FEN: Replace electrolytes as clinically indicated per ICU electrolyte protocol 1 dose of acetazolamide today due to retention MSK: PT/OT evaluate and treat Access -Utilize peripheral IV. Central line if indicated Prophylaxis -GI -famotidine -DVT -SCD/heparin Level 2 follow-up. Stable from critical care standpoint. Assign care to hospitalist in a.m 10/09. Okay to transfer from ICU.
[2018-10-08] MEDS: Ferrous Sulfate 325 MG Tablet PO SCH ×2 (08:34→20:45)
[2018-10-08] MEDS: guaiFENesin 600 MG ER Tablet PO SCH ×2 (08:34→20:46)
[2018-10-08] MEDS: Ascorbic Acid 500 MG Tablet PO SCH (08:35)
[2018-10-08] MEDS: Famotidine 20 MG Tablet PO SCH ×2 (08:35→20:47)
[2018-10-08] MEDS: Nystatin Liq 500,000 UNIT/5 ML UDC PO SCH ×4 (08:35→20:46)
[2018-10-08] MEDS: Senna/Docusate Sodium 8.6/50 MG Tablet PO SCH ×2 (08:35→20:47)
[2018-10-08] MEDS: MethylPREDNISolone Sod Succinate Inj 40 MG/ML Vial IV.PUSH SCH ×2 (08:35→20:47)
--- NOTE | 2018-10-08 16:15 | P.DIET ---
Nutritional Evaluation Type of nutrition evaluation: follow-up Nutrition consult regarding: Diet Evaluation Nutrition screening: Poor PO Intake, [employer] [employer] Screening comments: 10/02 [employer] [employer] for poor PO intake Subjective Barriers to Nutrition: Mouth pain (Pt reports "yeast infection" in her mouth which makes it painful to chew and swallow ) Oral Diet Tolerance Assessment Indicates: Sore mouth Objective - Diagnosis Acute COPD exacerbation, pneumonia, anemia - Objective [place] body weight: 55 kg % IBW: 104 Body Weight Used for Calculations: Actual (57.3kg admission weight ) Energy Needs - Lower Range (kCal/kg): 30 Energy Needs - Upper Range (kCal/kg): 35 Lower Limit kCal/kg (kCals): 1,719 Upper Limit kCal/kg (kCals): 2,005 Lower Limit Protein Factor (Grams per Kg): 1.2 Upper Limit Protein Factor (Grams per Kg): 1.5 Lower Protein Needs (Protein): 68 Upper Protein Needs (Protein): 86 Dietitian Reviewed in Medical Record: Current diet, Curent medications, Intake & Output, Labs, Medical history Diet Order: Cardiac diet Oral Diet Intake Amount: Good 75-90% Speech Therapy Recommendations: Yes (regular, thin liquids) Objective Comments: PMH; CRF, COPD Labs; POC glucose [phone] Medications; vit C, novolog Assessment Assessment: Pt currently has a variable PO intake, consuming around 50-100% for most meals. ST notes reviewed, pt able to tolerate regular foods and thin liquids. RD continue to recommend Ensure Enlive TID and Ensure Pudding for additional nutrition. Continue to monitor PO and supplement intake. Labs reviewed, dietitian following. Recommendations: 1. RD continue to recommend Ensure Enlive TID and Ensure Pudding for additional nutrition 2. Continue to monitor PO and supplement intake 3. Dietitian following Dietitian to Monitor: Lab values, Glucose level, Supplement acceptance, Intake & Output, Diet tolerance, Weight change, PO Intake, Medical course
--- NOTE | 2018-10-08 19:50 | P.PNPL ---
Subjective Interval history: 68 YOWF with COPD exac, Resp insuff, AMS Gets very anxious and sob Has wheezing Less anxious, weaned to NC Appetite poor Feels better today. Physical Exam Vital signs: Vital Signs 10/07/18 20:00 10/07/18 22:00 10/08/18 00:00 Temperature 99.5 F 99.5 F Pulse Rate 105 H 103 H 105 H Respiratory Rate 28 H 28 H Blood Pressure 144/67 H 171/74 H Pulse Oximetry 94 L 95 10/08/18 00:03 10/08/18 02:00 10/08/18 03:11 Temperature Pulse Rate 103 H 101 H 99 H Respiratory Rate 24 18 Blood Pressure Pulse Oximetry 10/08/18 04:00 10/08/18 06:00 10/08/18 07:00 Temperature 98.5 F Pulse Rate 105 H 105 H 105 H Respiratory Rate 28 H 21 Blood Pressure 145/63 H 126/58 L Pulse Oximetry 95 97 10/08/18 07:21 10/08/18 07:22 10/08/18 08:00 Temperature 99.7 F H Pulse Rate 101 H 107 H Respiratory Rate 23 20 Blood Pressure 128/61 Pulse Oximetry 98 100 10/08/18 09:00 10/08/18 09:50 10/08/18 10:00 Temperature Pulse Rate 110 H 104 H 103 H Respiratory Rate Blood Pressure 129/64 126/61 Pulse Oximetry 89 L 94 L 96 10/08/18 11:00 10/08/18 11:07 10/08/18 12:00 Temperature 98.2 F Pulse Rate 98 H 97 H 106 H Respiratory Rate 18 Blood Pressure 140/63 124/60 Pulse Oximetry 98 85 L 10/08/18 13:00 10/08/18 14:00 10/08/18 15:00 Temperature Pulse Rate 108 H 109 H 106 H Respiratory Rate Blood Pressure 145/66 H 147/63 H 159/66 H Pulse Oximetry 89 L 93 L 92 L 10/08/18 15:26 10/08/18 16:00 10/08/18 17:00 Temperature 98.5 F Pulse Rate 109 H 108 H 101 H Respiratory Rate 18 Blood Pressure 144/66 H 143/64 H Pulse Oximetry 93 L 95 Intake & Output 10/08/18 10/08/18 10/09/18 06:59 18:59 06:59 Intake Total 400 / 400 800 / 800 Output Total 800 / 800 1400 / 1400 Balance -400 / -400 -600 / -600 Weight 60 kg Intake: Oral 400 / 400 800 / 800 Output: Urine 800 / 800 1400 / 1400 Stool 0 / 0 Urine/Stool Mix 0 / 0 Other: Date of Last Bowel Movement 10/06/18 10/06/18 # Bowel Movements 0 # Incontinent Bowel Movements 0 GENERAL: Elderly WF, NAD SKIN: Warm and dry. HEAD: Normocephalic. EYES: No scleral icterus. No injection or drainage. NECK: Supple, trachea midline. No JVD or lymphadenopathy. CARDIOVASCULAR: Regular rate and rhythm without murmurs, gallops, or rubs. RESPIRATORY: Breath sounds equal bilaterally. No accessory muscle use. GASTROINTESTINAL: Abdomen soft, non-tender, nondistended. MUSCULOSKELETAL: No cyanosis, or edema. BACK: Nontender without obvious deformity. No CVA tenderness. Assessment and Plan - Plan IMPRESSION: Resp Insuff COPD Exac Pneumonia AMS Anxiety disorder Nicotine use PLAN: Supplement 02 with NC BIPAP prn Buspar for anxiety and help her tolerate BIPAP IV Solumedrol Cont Abx Aerosol nebs Nicotine patch DW pt, her at BS Encouraged her to use Acapella and IS
--- NOTE | 2018-10-09 05:50 | XR ---
EXAM DATE: 10/09/2018 5:33 AM EST AGE/SEX: 68 years / Female INDICATIONS: Shortness of breath, possible pulmonary disease. CLINICAL DATA: This is the patient's subsequent encounter. Patient reports that signs and symptoms h ave been present for 1 week and indicates a pain score of 0/10. MEDICAL/SURGICAL HISTORY: Chronic obstructive pulmonary disease. Hypercholesterolemia. None. COMPARISON: [facility], CHEST 1V SINGLE AP, 10/08/2018. . FINDINGS: The heart size is normal. This increased density at the bases bilaterally. The upper and mid lungs ar e clear. There is silhouetting the hemidiaphragms. CONCLUSION: Bibasilar areas of consolidation, atelectasis and/or effusion. This appears worse when compared to th e prior exam. Electronically signed by: Pro Marcano MD Board Certified Radiologist 10/09/2018 5:48 AM EST
[2018-10-09 06:52] LABS: Baso % (Auto) 0.1 % (0.0-2.0); Hematocrit 26.5 % (35.0-46.0); Hemoglobin 8.2 gm/dL (11.6-15.3); Lymph # (Auto) 0.2 th/mm3 (1.0-4.8); Lymph % (Auto) 3.5 % (9.0-44.0); Mean Corpuscular Hemoglobin 26.8 pg (27.0-34.0); Mean Corpuscular Volume 86.8 fL (80.0-100.0); Mean Platelet Volume 7.5 fL (7.0-11.0); Mono # (Auto) 0.3 th/mm3 (0.0-0.9); Mono % (Auto) 3.8 % (0.0-8.0); Neut # (Auto) 6.6 th/mm3 (1.8-7.7); Neut % (Auto) 92.6 % (16.0-70.0); Platelet Count 351 th/mm3 (150-450); Red Blood Count 3.05 mil/mm3 (4.00-5.30); Red Cell Distribution Width 19.8 % (11.6-17.2); White Blood Count 7.1 th/mm3 (4.0-11.0)
[2018-10-09 07:00] LABS: Mean Corpuscular HGB Conc 30.8 % (32.0-36.0)
[2018-10-09 07:09] LABS: Alanine Aminotransferase 154 U/L (10-53); Albumin 2.6 g/dL (3.4-5.0); Alkaline Phosphatase 115 U/L (45-117); Anion Gap 3 meq/L (5-15); Aspartate Aminotransferase 71 U/L (15-37); Blood Urea Nitrogen 17 mg/dL (7-18); Calcium 8.2 mg/dL (8.5-10.1); Carbon Dioxide 40.8 meq/L (21.0-32.0); Chloride 97 meq/L (98-107); Glomerular Filtration Rate Greater Than 89 mL/min (>89); Glucose,Random 152 mg/dL (74-106); Magnesium 2.4 mg/dL (1.5-2.5); Phosphorus 3.8 mg/dL (2.5-4.9); Potassium 3.9 meq/L (3.5-5.1); Sodium 141 meq/L (136-145); Total Protein 5.4 g/dL (6.4-8.2)
--- NOTE | 2018-10-09 09:13 | P.PNFP ---
Subjective Interval history: Transferred to cardiac floor Voices she is breathing better, sat's maintained on NC Results - Labs Result diagrams: 10/09/18 04:41 10/09/18 04:41 Abnormal lab results 10/08/18 10/08/18 10/08/18 Range/Units 12:35 17:16 20:38 RBC (4.00-5.30) mil/mm3 Hgb (11.6-15.3) gm/dL Hct (35.0-46.0) % MCH (27.0-34.0) pg MCHC (32.0-36.0) % RDW (11.6-17.2) % Neut % (Auto) (16.0-70.0) % Lymph % (Auto) (9.0-44.0) % Lymph # (Auto) (1.0-4.8) th/mm3 Chloride (98-107) meq/L Carbon Dioxide (21.0-32.0) meq/L Anion Gap (5-15) meq/L Creatinine (0.50-1.00) mg/dL POC Glucose 166 H 175 H 157 H (68-110) mg/dl Random Glucose (74-106) mg/dL Calcium (8.5-10.1) mg/dL AST (15-37) U/L ALT (10-53) U/L Total Protein (6.4-8.2) g/dL Albumin (3.4-5.0) g/dL 10/09/18 10/09/18 10/09/18 Range/Units 04:41 04:41 06:34 RBC 3.05 L (4.00-5.30) mil/mm3 Hgb 8.2 L (11.6-15.3) gm/dL Hct 26.5 L (35.0-46.0) % MCH 26.8 L (27.0-34.0) pg MCHC 30.8 L (32.0-36.0) % RDW 19.8 H (11.6-17.2) % Neut % (Auto) 92.6 H (16.0-70.0) % Lymph % (Auto) 3.5 L (9.0-44.0) % Lymph # (Auto) 0.2 L (1.0-4.8) th/mm3 Chloride 97 L (98-107) meq/L Carbon Dioxide 40.8 H (21.0-32.0) meq/L Anion Gap 3 L (5-15) meq/L Creatinine 0.41 L (0.50-1.00) mg/dL POC Glucose 158 H (68-110) mg/dl Random Glucose 152 H (74-106) mg/dL Calcium 8.2 L (8.5-10.1) mg/dL AST 71 H (15-37) U/L ALT 154 H (10-53) U/L Total Protein 5.4 L (6.4-8.2) g/dL Albumin 2.6 L (3.4-5.0) g/dL Short CBC 10/09/18 Range/Units 04:41 WBC 7.1 (4.0-11.0) th/mm3 Hgb 8.2 L (11.6-15.3) gm/dL Hct 26.5 L (35.0-46.0) % Plt Count 351 (150-450) th/mm3 BMP 10/09/18 04:41 Sodium 141 Potassium 3.9 Chloride 97 L Carbon Dioxide 40.8 H BUN 17 Creatinine 0.41 L Calcium 8.2 L Liver Function 10/09/18 Range/Units 04:41 Total Bilirubin 0.6 (0.2-1.0) mg/dL AST 71 H (15-37) U/L ALT 154 H (10-53) U/L Alkaline Phosphatase 115 (45-117) U/L Albumin 2.6 L (3.4-5.0) g/dL - Imaging Impressions Chest X-Ray 10/09/18 06:00 CONCLUSION: Bibasilar areas of consolidation, atelectasis and/or effusion. This appears worse when compared to the prior exam. Physical Exam Vital signs: Vital Signs 10/08/18 09:50 10/08/18 10:00 10/08/18 11:00 Temperature Pulse Rate 104 H 103 H 98 H Respiratory Rate Blood Pressure 129/64 126/61 140/63 Pulse Oximetry 94 L 96 98 10/08/18 11:07 10/08/18 12:00 10/08/18 13:00 Temperature 98.2 F Pulse Rate 97 H 106 H 108 H Respiratory Rate 18 Blood Pressure 124/60 145/66 H Pulse Oximetry 85 L 89 L 10/08/18 14:00 10/08/18 15:00 10/08/18 15:26 Temperature Pulse Rate 109 H 106 H 109 H Respiratory Rate 18 Blood Pressure 147/63 H 159/66 H Pulse Oximetry 93 L 92 L 10/08/18 16:00 10/08/18 17:00 10/08/18 19:58 Temperature 98.5 F Pulse Rate 108 H 101 H Respiratory Rate Blood Pressure 144/66 H 143/64 H Pulse Oximetry 93 L 95 96 10/08/18 20:00 10/09/18 00:00 10/09/18 02:17 Temperature 98.3 F 98.4 F Pulse Rate 104 H 104 H 97 H Respiratory Rate 22 20 15 Blood Pressure 140/63 144/65 H Pulse Oximetry 98 94 L 10/09/18 02:18 10/09/18 04:00 10/09/18 04:29 Temperature 98.4 F Pulse Rate 101 H 97 H Respiratory Rate 20 18 Blood Pressure 144/77 H Pulse Oximetry 95 92 L 10/09/18 07:29 10/09/18 07:47 Temperature 98.1 F Pulse Rate 99 H 96 H Respiratory Rate 16 22 Blood Pressure 149/68 H Pulse Oximetry 95 95 Intake & Output 10/08/18 10/09/18 10/09/18 18:59 06:59 18:59 Intake Total 800 / 800 340 / 340 Output Total 1400 / 1400 750 / 750 Balance -600 / -600 -410 / -410 Intake: IV 100 / 100 Rocephin Inj 1,000 MG In NS Inj 100 / 100 100 ML @ 200 mls/hr IV.SIG Q24H [facility] Rx#:[id number] Oral 800 / 800 240 / 240 Output: Urine 1400 / 1400 750 / 750 Other: Date of Last Bowel Movement 10/06/18 10/06/18 - Constitutional no acute distress - Routine HEENT Exam ENT: Present: mucous membranes moist - Routine Respiratory Exam Present: wheezes, diminished air movement - Routine Cardiovascular Exam Present: S1, S2 - Routine Abdominal Exam Present: soft, normoactive bowel sounds - Routine Skin Exam Present: dry, warm - Routine Neurological Exam Present: alert - Routine Psychiatric Exam Present: cooperative Assessment and Plan - Assessment (1) Acute exacerbation of chronic obstructive airways disease Code(s): J44.1 - Chronic obstructive pulmonary disease with (acute) exacerbation Status: Acute Plan: Pulmonary following, oxygen support on NC O2, bronchodilators, Solu -Medrol (2) Pneumonia Code(s): J18.9 - Pneumonia, unspecified organism Status: Acute Plan: Pulmonary following, cont Iv azithromycin, Rocephin. cxr 10/09 showing worsening consolidation. (3) Anemia Code(s): D64.9 - Anemia, unspecified Status: Acute Plan: Given unit blood, no sign of bleeding, will cont to monitor Fe supplement (4) Hypokalemia Code(s): E87.6 - Hypokalemia Status: Resolved Plan: potassium is again normal this am - Assessment and Plan 10/03/18 patient seen this am, She is found in bed, alert. Family at bedside. She is dyspneic and on 4 liters. VSS. Pulmonary consulted, cxr done show worsening infiltrate. Call received from nurse at 1230-130, stating patient having trouble breathing more confused, family concerned. Nurse given order to transfer to ICU, laundry routeman consult placed at that time to assist with critical care management. 10/04/18 - Now in the ICU on BiPap. and son at the bedside. Starch Cooker is monitoring and following. Her VS are stable. Pulmonary is following for COPD exacerbation and PNA. 10/05/18 - She did better overnight and is no longer requiring Bipap. She is awake, alert and conversive. Son and are at bedside. Labs noted and are stable. Still some exp wheezing on the right bu overall improved. 10/09/17- She was transferred to medical floor last night, voices she is breathing better. She does have some tremors. Cxr done today shows worsening consolidation. Pulmonary cont to follow.
[2018-10-09] MEDS: guaiFENesin 600 MG ER Tablet PO SCH ×2 (09:32→20:17)
[2018-10-09] MEDS: Senna/Docusate Sodium 8.6/50 MG Tablet PO SCH ×2 (09:32→20:17)
[2018-10-09] MEDS: Ferrous Sulfate 325 MG Tablet PO SCH ×2 (09:32→20:17)
[2018-10-09] MEDS: Famotidine 20 MG Tablet PO SCH (09:33)
[2018-10-09] MEDS: MethylPREDNISolone Sod Succinate Inj 40 MG/ML Vial IV.PUSH SCH ×2 (09:33→20:17)
[2018-10-09] MEDS: Nystatin Liq 500,000 UNIT/5 ML UDC PO SCH ×4 (09:33→20:17)
[2018-10-09] MEDS: Ascorbic Acid 500 MG Tablet PO SCH (09:38)
[2018-10-09] MEDS: Insulin NovoLOG Aspart Correctional Sugar Inj SQ SCH ×4 (10:25→22:46)
--- NOTE | 2018-10-09 15:36 | P.CONGI ---
History of Present Illness Consult date: 10/09/18 Consult reason: Anemia with Hemoccult positive stools Chief complaint: Acute COPD exacerbation, pneumonia, Anemia History of Present Illness: This is a 68 yo F with PMH significant for COPD who was admitted to [place] on Oct 01 for COPD exacerbation with pneumonia, she was transferred to [facility] where she was on BiPAP, this has recently been weaned and she has been transferred to a medical floor and is on 3 L o2 via [place]. Our service has been consulted to evaluate pt for anemia with Hemoccult positive stools. Pt does report known history of anemia, denies previous blood transfusion prior to this admission. Has been taking iron supplements at home. Denies taking B12. Has never had an EGD or colonoscopy. Denies nausea, vomiting, abdominal pain, unintentional weight loss. Reports that she has had issues with constipation. States that she has been noticing her stools have been black, started since admission. Discussed pt with pulmonology, will await clearance prior to EGD and colonoscopy. Pt reports taking a lot of NSAIDs for generalized pain prior to arrival. Denies taking blood thinners. Denies ETOH. Was smoking 1 PPD prior to admission. <Kym Barrett - Last Filed: 10/09/18 15:25> Review of Systems Gastrointestinal: Reports black, tarry stools, Reports constipation, Denies abdominal pain, Denies bright, red blood in stools, Denies nausea, Denies vomiting <Kym Barrett - Last Filed: 10/09/18 15:25> [facility] - History History Provided By: Patient - Medical History Medical History: Medical History (Last Reviewed 10/09/18 @ 09:15 by Francia Whyte) Smoker History of COPD History of high cholesterol History of shingles - Surgical History Surgical History: Surgical History (Last Reviewed 10/09/18 @ 09:15 by Francia Whyte) No history of previous surgery - Family History Family History: Family History (Last Reviewed 10/09/18 @ 09:15 by Francia Whyte) Mother COPD (chronic obstructive pulmonary disease) - Tobacco History Second Hand Smoke Exposure: Yes Tobacco Use In Past 30 Days: Yes Smoking Status: Current every day smoker Tobacco Type: Cigarettes - Alcohol History How Often Do You Have a Drink Containing Alcohol: Never - Substance Use History Substance History: No History of Abuse - Travel History Recent Travel in the [facility] Within the Last 8 Weeks: No Recent Travel Out of the Country Within the Last 8 Weeks: No - Immunization History Tetanus Immunization: Unsure Hx Influenza Vaccine This Season: Yes <Kym Barrett - Last Filed: 10/09/18 15:25> - Medical History Medical History: Medical History (Last Reviewed 10/09/18 @ 09:15 by Francia Whyte) Smoker History of COPD History of high cholesterol History of shingles - Surgical History Surgical History: Surgical History (Last Reviewed 10/09/18 @ 09:15 by Francia Whyte) No history of previous surgery - Family History Family History: Family History (Last Reviewed 10/09/18 @ 09:15 by Francia Whyte) Mother COPD (chronic obstructive pulmonary disease) <Jason Aviles - Last Filed: 10/09/18 15:47> Medications and Allergies Active Medications: Active Medications Acetaminophen (Tylenol) 650 mg PO Q6H PRN PRN Reason: Fever/pain 1 through 10 Al Hydroxide/Mg Hydroxide (Milk Of Shoaib Camp[place]) 30 ml PO Q12H PRN PRN Reason: Mild Constipation Albuterol (Duoneb Neb (Tammy)) 1 ampul NEB Q4HR NEB [facility] Last Admin: 10/09/18 11:10 Dose: Not Given Albuterol (Albuterol Neb (Prn)) 2.5 mg NEB Q2HR NEB PRN PRN Reason: DYSPNEA Last Admin: 10/09/18 13:25 Dose: 2.5 mg Ascorbic Acid (Vitamin C) 500 mg PO DAILY [facility] Last Admin: 10/09/18 09:38 Dose: 500 mg Bisacodyl (Dulcolax Supp) 10 mg RECTAL DAILY PRN PRN Reason: SEVERE CONSITIPATION Budesonide (Pulmocort Respule Neb) 0.5 mg NEB Q12HR NEB [facility] Last Admin: 10/09/18 07:29 Dose: 0.5 mg Buspirone HCl (Buspar) 5 mg PO TID [facility] Last Admin: 10/09/18 13:15 Dose: 5 mg Dextrose (D50w Vial) 50 ml IV.PUSH UNSCH PRN PRN Reason: PER HYPOGLYCEMIA PROTOCOL Famotidine (Pepcid) 20 mg PO BID [facility] Last Admin: 10/09/18 09:33 Dose: 20 mg Ferrous Sulfate (Ferosul) 325 mg PO BID [facility] Last Admin: 10/09/18 09:32 Dose: 325 mg Glucagon (Glucagon Inj) 1 mg OTHER UNSCH PRN PRN Reason: for Hypoglycemia Protocol Guaifenesin (Mucinex Er) 600 mg PO BID [facility] Last Admin: 10/09/18 09:32 Dose: 600 mg Ceftriaxone Sodium 1,000 mg/ (Sodium Chloride) 100 mls @ 200 mls/hr IV.SIG Q24H [facility] Last Infusion: 10/08/18 20:50 Dose: Infused Magnesium Sulfate 4 gm/ Sodium (Chloride) 100 mls @ 50 mls/hr IV.SIG UNSCH PRN PRN Reason: For Magnesium 0.9 - 1.1 mg/dL Magnesium Sulfate 2 gm/ Sodium (Chloride) 100 mls @ 50 mls/hr IV.SIG UNSCH PRN PRN Reason: For Magnesium 1.2 - 1.6 mg/dL Potassium Chloride (Kcl 40 Meq Premix Inj) 40 meq in 100 mls @ 50 mls/hr IV.SIG Q2H PRN PRN Reason: For Potassium 2.8 - 3.2 mEq/L Potassium Chloride (Kcl 20 Meq Premix Inj) 20 meq in 100 mls @ 50 mls/hr IV.SIG Q2H PRN PRN Reason: For Potassium 3.3 - 3.5 mEq/L Potassium Chloride (Kcl 40 Meq Premix Inj) 40 meq in 100 mls @ 25 mls/hr IV.SIG UNSCH PRN PRN Reason: For Potassium 3.3 - 3.5 mEq/L Potassium Chloride (Kcl 20 Meq Premix Inj) 20 meq in 100 mls @ 50 mls/hr IV.SIG Q2H PRN PRN Reason: For Potassium 2.8 - 3.2 mEq/L Potassium Phosphate 30 mmol/ (Sodium Chloride) 260 mls @ 42 mls/hr IV.SIG UNSCH PRN PRN Reason: SEE LABEL COMMENTS Sodium Phosphate 30 mmol/ (Sodium Chloride) 260 mls @ 42 mls/hr IV.SIG UNSCH PRN PRN Reason: For Phosphorus < 2.5 mg/dL Insulin Aspart (Novolog Insulin Correctional Sugar Inj) 0 unit SQ ACHS [facility]; Protocol Last Admin: 10/09/18 13:04 Dose: Not Given Lactulose (Lactulose Liq) 30 ml PO DAILY PRN PRN Reason: SEVERE CONSITIPATION Magnesium Oxide (Mag-Ox) 800 mg PO UNSCH PRN PRN Reason: For Magnesium 1.2 - 1.6 mg/dL Melatonin (Melatonin) 5 mg PO HS PRN PRN Reason: INSOMNIA Last Admin: 10/04/18 20:15 Dose: 5 mg Methylprednisolone Sodium Succinate (Solumedrol Inj) 40 mg IV.PUSH Q12HR [facility] Last Admin: 10/09/18 09:33 Dose: 40 mg Miscellaneous (Pill Splitter) 1 each OTHER UNSCH PRN PRN Reason: FOR PILL SPLITTIN' Nicotine (Habitrol 14 Mg Patch.24 Hr) 1 patch T-DERMAL [facility] Last Admin: 10/08/18 20:45 Dose: 1 patch Nystatin (Mycostatin Liq) 6 ml PO QID [facility] Last Admin: 10/09/18 13:15 Dose: 5 ml Ondansetron HCl (Zofran Inj) 4 mg IV.PUSH Q6H PRN PRN Reason: NAUSEA OR VOMITING Paroxetine HCl (Paxil Cr) 25 mg PO DAILY [facility] Last Admin: 10/02/18 18:08 Dose: 25 mg Patch Removal (Remove Old Patch) 1 each T-DERMAL HS [facility] Last Admin: 10/08/18 20:47 Dose: 1 each Ptownmed(Tiotropium Plato [Spiriva Respimat] 2 Puff) 0 each INH DAILY [facility] Potassium Bicarb/Potassium Chloride (K-Lyte Cl Eff) 50 meq PO UNSCH PRN PRN Reason: For Potassium 3.3 - 3.5 mEq/L Potassium Phosphate (K-Phos Original) 2,000 mg PO Q4H PRN PRN Reason: Phosphorus Less Than 2.5 mg/dL Last Admin: 10/06/18 08:10 Dose: 2,000 mg Potassium Phosphate (K-Phos Original) 2,000 mg PO UNSCH PRN PRN Reason: SEE LABEL COMMENTS Pravastatin Sodium (Pravachol) 40 mg PO DAILY [facility] Last Admin: 10/09/18 09:33 Dose: 40 mg Senna/Docusate Sodium (Nicol-Colace) 1 tab PO BID [facility] Last Admin: 10/09/18 09:32 Dose: 1 tab Sennosides (Senokot) 17.2 mg PO Q12H PRN PRN Reason: Moderate Constipation Sodium Chloride (Ns Flush) 2 ml IV.FLUSH BID [facility] Last Admin: 10/09/18 09:34 Dose: 2 ml Sodium Chloride (Ns Flush) 2 ml IV.FLUSH PRN PRN PRN Reason: FLUSH AFTER USING IV ACCESS <Kym Barrett - Last Filed: 10/09/18 15:25> Active Medications: Active Medications Acetaminophen (Tylenol) 650 mg PO Q6H PRN PRN Reason: Fever/pain 1 through 10 Al Hydroxide/Mg Hydroxide (Milk Of Shoaib Liq) 30 ml PO Q12H PRN PRN Reason: Mild Constipation Albuterol (Duoneb Neb (Tammy)) 1 ampul NEB Q4HR NEB [facility] Last Admin: 10/09/18 11:10 Dose: Not Given Albuterol (Albuterol Neb (Prn)) 2.5 mg NEB Q2HR NEB PRN PRN Reason: DYSPNEA Last Admin: 10/09/18 13:25 Dose: 2.5 mg Ascorbic Acid (Vitamin C) 500 mg PO DAILY [facility] Last Admin: 10/09/18 09:38 Dose: 500 mg Bisacodyl (Dulcolax Supp) 10 mg RECTAL DAILY PRN PRN Reason: SEVERE CONSITIPATION Budesonide (Pulmocort Respule Neb) 0.5 mg NEB Q12HR NEB [facility] Last Admin: 10/09/18 07:29 Dose: 0.5 mg Buspirone HCl (Buspar) 5 mg PO TID [facility] Last Admin: 10/09/18 13:15 Dose: 5 mg Dextrose (D50w Vial) 50 ml IV.PUSH UNSCH PRN PRN Reason: PER HYPOGLYCEMIA PROTOCOL Ferrous Sulfate (Ferosul) 325 mg PO BID [facility] Last Admin: 10/09/18 09:32 Dose: 325 mg Glucagon (Glucagon Inj) 1 mg OTHER UNSCH PRN PRN Reason: for Hypoglycemia Protocol Guaifenesin (Mucinex Er) 600 mg PO BID [facility] Last Admin: 10/09/18 09:32 Dose: 600 mg Ceftriaxone Sodium 1,000 mg/ (Sodium Chloride) 100 mls @ 200 mls/hr IV.SIG Q24H [facility] Last Infusion: 10/08/18 20:50 Dose: Infused Magnesium Sulfate 4 gm/ Sodium (Chloride) 100 mls @ 50 mls/hr IV.SIG UNSCH PRN PRN Reason: For Magnesium 0.9 - 1.1 mg/dL Magnesium Sulfate 2 gm/ Sodium (Chloride) 100 mls @ 50 mls/hr IV.SIG UNSCH PRN PRN Reason: For Magnesium 1.2 - 1.6 mg/dL Potassium Chloride (Kcl 40 Meq Premix Inj) 40 meq in 100 mls @ 50 mls/hr IV.SIG Q2H PRN PRN Reason: For Potassium 2.8 - 3.2 mEq/L Potassium Chloride (Kcl 20 Meq Premix Inj) 20 meq in 100 mls @ 50 mls/hr IV.SIG Q2H PRN PRN Reason: For Potassium 3.3 - 3.5 mEq/L Potassium Chloride (Kcl 40 Meq Premix Inj) 40 meq in 100 mls @ 25 mls/hr IV.SIG UNSCH PRN PRN Reason: For Potassium 3.3 - 3.5 mEq/L Potassium Chloride (Kcl 20 Meq Premix Inj) 20 meq in 100 mls @ 50 mls/hr IV.SIG Q2H PRN PRN Reason: For Potassium 2.8 - 3.2 mEq/L Potassium Phosphate 30 mmol/ (Sodium Chloride) 260 mls @ 42 mls/hr IV.SIG UNSCH PRN PRN Reason: SEE LABEL COMMENTS Sodium Phosphate 30 mmol/ (Sodium Chloride) 260 mls @ 42 mls/hr IV.SIG UNSCH PRN PRN Reason: For Phosphorus < 2.5 mg/dL Insulin Aspart (Novolog Insulin Correctional Sugar Inj) 0 unit SQ ACHS [facility]; Protocol Last Admin: 10/09/18 13:04 Dose: Not Given Lactulose (Lactulose Liq) 30 ml PO DAILY PRN PRN Reason: SEVERE CONSITIPATION Magnesium Oxide (Mag-Ox) 800 mg PO UNSCH PRN PRN Reason: For Magnesium 1.2 - 1.6 mg/dL Melatonin (Melatonin) 5 mg PO HS PRN PRN Reason: INSOMNIA Last Admin: 10/04/18 20:15 Dose: 5 mg Methylprednisolone Sodium Succinate (Solumedrol Inj) 40 mg IV.PUSH Q12HR [facility] Last Admin: 10/09/18 09:33 Dose: 40 mg Miscellaneous (Pill Splitter) 1 each OTHER UNSCH PRN PRN Reason: FOR PILL SPLITTIN' Nicotine (Habitrol 14 Mg Patch.24 Hr) 1 patch T-DERMAL [facility] Last Admin: 10/08/18 20:45 Dose: 1 patch Nystatin (Mycostatin Liq) 6 ml PO QID [facility] Last Admin: 10/09/18 13:15 Dose: 5 ml Ondansetron HCl (Zofran Inj) 4 mg IV.PUSH Q6H PRN PRN Reason: NAUSEA OR VOMITING Pantoprazole Sodium (Protonix Inj) 40 mg IV.PUSH Q12H [facility] Paroxetine HCl (Paxil Cr) 25 mg PO DAILY [facility] Last Admin: 10/02/18 18:08 Dose: 25 mg Patch Removal (Remove Old Patch) 1 each T-DERMAL HS [facility] Last Admin: 10/08/18 20:47 Dose: 1 each Ptownmed(Tiotropium Plato [Spiriva Respimat] 2 Puff) 0 each INH DAILY [facility] Potassium Bicarb/Potassium Chloride (K-Lyte Cl Eff) 50 meq PO UNSCH PRN PRN Reason: For Potassium 3.3 - 3.5 mEq/L Potassium Phosphate (K-Phos Original) 2,000 mg PO Q4H PRN PRN Reason: Phosphorus Less Than 2.5 mg/dL Last Admin: 10/06/18 08:10 Dose: 2,000 mg Potassium Phosphate (K-Phos Original) 2,000 mg PO UNSCH PRN PRN Reason: SEE LABEL COMMENTS Pravastatin Sodium (Pravachol) 40 mg PO DAILY [facility] Last Admin: 10/09/18 09:33 Dose: 40 mg Senna/Docusate Sodium (Nicol-Colace) 1 tab PO BID [facility] Last Admin: 10/09/18 09:32 Dose: 1 tab Sennosides (Senokot) 17.2 mg PO Q12H PRN PRN Reason: Moderate Constipation Sodium Chloride (Ns Flush) 2 ml IV.FLUSH BID [facility] Last Admin: 10/09/18 09:34 Dose: 2 ml Sodium Chloride (Ns Flush) 2 ml IV.FLUSH PRN PRN PRN Reason: FLUSH AFTER USING IV ACCESS <Jason Aviles - Last Filed: 10/09/18 15:47> Allergies Allergy/AdvReac Type Severity Reaction Status Date / Time No Known Allergies Allergy Verified 10/01/18 15:27 Home Medications Medication Instructions Recorded Confirmed Type albuterol sulfate [ProAir HFA] 2 puff INHALATION Q4-6H PRN 06/15/18 10/01/18 History ferrous sulfate [iron] 325 mg PO DAILY 06/15/18 10/01/18 History lovastatin 40 mg PO DAILY 06/15/18 10/01/18 History tiotropium bromide [Spiriva 2 puff INHALATION DAILY 06/15/18 10/01/18 History Respimat] nystatin 10 ml PO QID 10/02/18 10/02/18 History pregabalin [Lyrica] 25 mg PO BID 10/02/18 10/02/18 History Exam Vital signs: Vital Signs 10/08/18 15:26 10/08/18 16:00 10/08/18 17:00 Temperature 98.5 F Pulse Rate 109 H 108 H 101 H Respiratory Rate 18 Blood Pressure 144/66 H 143/64 H Pulse Oximetry 93 L 95 10/08/18 19:58 10/08/18 20:00 10/09/18 00:00 Temperature 98.3 F 98.4 F Pulse Rate 104 H 104 H Respiratory Rate 22 20 Blood Pressure 140/63 144/65 H Pulse Oximetry 96 98 94 L 10/09/18 02:17 10/09/18 02:18 10/09/18 04:00 Temperature 98.4 F Pulse Rate 97 H 101 H Respiratory Rate 15 20 Blood Pressure 144/77 H Pulse Oximetry 95 92 L 10/09/18 04:29 10/09/18 07:00 10/09/18 07:29 Temperature Pulse Rate 97 H 93 H 99 H Respiratory Rate 18 16 Blood Pressure Pulse Oximetry 95 10/09/18 07:47 10/09/18 08:00 10/09/18 09:00 Temperature 98.1 F Pulse Rate 96 H 106 H 114 H Respiratory Rate 22 Blood Pressure 149/68 H Pulse Oximetry 95 95 10/09/18 10:00 10/09/18 10:53 10/09/18 12:00 Temperature 98.7 F Pulse Rate 96 H 96 H 94 H Respiratory Rate 20 Blood Pressure 154/71 H Pulse Oximetry 97 10/09/18 13:00 10/09/18 13:25 Temperature Pulse Rate 104 H 102 H Respiratory Rate 16 Blood Pressure Pulse Oximetry Intake & Output 10/08/18 10/09/18 10/09/18 18:59 06:59 18:59 Intake Total 800 / 800 340 / 340 Output Total 1400 / 1400 750 / 750 Balance -600 / -600 -410 / -410 Intake: IV 100 / 100 Rocephin Inj 1,000 MG In NS Inj 100 / 100 100 ML @ 200 mls/hr IV.SIG Q24H [facility] Rx#:[id number] Oral 800 / 800 240 / 240 Output: Urine 1400 / 1400 750 / 750 Other: Date of Last Bowel Movement 10/06/18 10/06/18 10/09/18 <Kym Barrett - Last Filed: 10/09/18 15:25> Vital signs: Vital Signs 10/08/18 16:00 10/08/18 17:00 10/08/18 19:58 Temperature 98.5 F Pulse Rate 108 H 101 H Respiratory Rate Blood Pressure 144/66 H 143/64 H Pulse Oximetry 93 L 95 96 10/08/18 20:00 10/09/18 00:00 10/09/18 02:17 Temperature 98.3 F 98.4 F Pulse Rate 104 H 104 H 97 H Respiratory Rate 22 20 15 Blood Pressure 140/63 144/65 H Pulse Oximetry 98 94 L 10/09/18 02:18 10/09/18 04:00 10/09/18 04:29 Temperature 98.4 F Pulse Rate 101 H 97 H Respiratory Rate 20 18 Blood Pressure 144/77 H Pulse Oximetry 95 92 L 10/09/18 07:00 10/09/18 07:29 10/09/18 07:47 Temperature 98.1 F Pulse Rate 93 H 99 H 96 H Respiratory Rate 16 22 Blood Pressure 149/68 H Pulse Oximetry 95 95 10/09/18 08:00 10/09/18 09:00 10/09/18 10:00 Temperature Pulse Rate 106 H 114 H 96 H Respiratory Rate Blood Pressure Pulse Oximetry 95 10/09/18 10:53 10/09/18 12:00 10/09/18 13:00 Temperature 98.7 F Pulse Rate 96 H 94 H 104 H Respiratory Rate 20 Blood Pressure 154/71 H Pulse Oximetry 97 10/09/18 13:25 10/09/18 14:00 10/09/18 15:00 Temperature Pulse Rate 102 H 98 H 99 H Respiratory Rate 16 Blood Pressure Pulse Oximetry Intake & Output 10/08/18 10/09/18 10/09/18 18:59 06:59 18:59 Intake Total 800 / 800 340 / 340 Output Total 1400 / 1400 750 / 750 Balance -600 / -600 -410 / -410 Intake: IV 100 / 100 Rocephin Inj 1,000 MG In NS Inj 100 / 100 100 ML @ 200 mls/hr IV.SIG Q24H [facility] Rx#:[id number] Oral 800 / 800 240 / 240 Output: Urine 1400 / 1400 750 / 750 Other: Date of Last Bowel Movement 10/06/18 10/06/18 10/09/18 <Jason Aviles - Last Filed: 10/09/18 15:47> Results - Labs CBC & Chem 7: 10/09/18 04:41 10/09/18 04:41 Labs: Laboratory Results - last 24 hr 10/02/18 10/03/18 10/08/18 05:20 10:28 17:16 WBC RBC Hgb Hct MCV MCH MCHC RDW Plt Count MPV Neut % (Auto) Lymph % (Auto) Kem[place] % (Auto) Eos % (Auto) Baso % (Auto) Neut # (Auto) Lymph # (Auto) [place] # (Auto) Eos # (Auto) Baso # (Auto) WBC Differential Differential Comment Critical Value Yes Sodium Potassium Chloride Carbon Dioxide Anion Gap BUN Creatinine Estimated GFR POC Glucose 175 H Random Glucose Calcium Phosphorus Magnesium Total Bilirubin AST ALT Alkaline Phosphatase Total Protein Albumin Nasal Screen MRSA (PCR) Legionella Antibody Negative 10/08/18 10/09/18 10/09/18 20:38 04:41 04:41 WBC 7.1 RBC 3.05 L Hgb 8.2 L Hct 26.5 L MCV 86.8 MCH 26.8 L MCHC 30.8 L RDW 19.8 H Plt Count 351 MPV 7.5 Neut % (Auto) 92.6 H Lymph % (Auto) 3.5 L [place] % (Auto) 3.8 Eos % (Auto) 0.0 Baso % (Auto) 0.1 Neut # (Auto) 6.6 Lymph # (Auto) 0.2 L Kemper # (Auto) 0.3 Eos # (Auto) 0.0 Baso # (Auto) 0.0 WBC Differential . Differential Comment Auto diff final Critical Value Sodium 141 Potassium 3.9 Chloride 97 L Carbon Dioxide 40.8 H Anion Gap 3 L BUN 17 Creatinine 0.41 L Estimated GFR Greater than 89 POC Glucose 157 H Random Glucose 152 H Calcium 8.2 L Phosphorus 3.8 D Magnesium 2.4 Total Bilirubin 0.6 AST 71 H ALT 154 H Alkaline Phosphatase 115 Total Protein 5.4 L Albumin 2.6 L Nasal Screen MRSA (PCR) Legionella Antibody 10/09/18 10/09/18 10/09/18 06:34 09:00 11:33 WBC RBC Hgb Hct MCV MCH MCHC RDW Plt Count MPV Neut % (Auto) Lymph % (Auto) Kem[place] % (Auto) Eos % (Auto) Baso % (Auto) Neut # (Auto) Lymph # (Auto) Kem[place] # (Auto) Eos # (Auto) Baso # (Auto) WBC Differential Differential Comment Critical Value Sodium Potassium Chloride Carbon Dioxide Anion Gap BUN Creatinine Estimated GFR POC Glucose 158 H 134 H Random Glucose Calcium Phosphorus Magnesium Total Bilirubin AST ALT Alkaline Phosphatase Total Protein Albumin Nasal Screen MRSA (PCR) Not detected Legionella Antibody - Imaging Impressions Chest X-Ray 10/09/18 06:00 CONCLUSION: Bibasilar areas of consolidation, atelectasis and/or effusion. This appears worse when compared to the prior exam. <Kym Barrett - Last Filed: 10/09/18 15:25> - Labs CBC & Chem 7: 10/09/18 04:41 10/09/18 04:41 Labs: Laboratory Results - last 24 hr 10/02/18 10/03/18 10/08/18 05:20 10:28 17:16 WBC RBC Hgb Hct MCV MCH MCHC RDW Plt Count MPV Neut % (Auto) Lymph % (Auto) Kemper % (Auto) Eos % (Auto) Baso % (Auto) Neut # (Auto) Lymph # (Auto) Kem[place] # (Auto) Eos # (Auto) Baso # (Auto) WBC Differential Differential Comment Critical Value Yes Sodium Potassium Chloride Carbon Dioxide Anion Gap BUN Creatinine Estimated GFR POC Glucose 175 H Random Glucose Calcium Phosphorus Magnesium Total Bilirubin AST ALT Alkaline Phosphatase Total Protein Albumin Nasal Screen MRSA (PCR) Legionella Antibody Negative 10/08/18 10/09/18 10/09/18 20:38 04:41 04:41 WBC 7.1 RBC 3.05 L Hgb 8.2 L Hct 26.5 L MCV 86.8 MCH 26.8 L MCHC 30.8 L RDW 19.8 H Plt Count 351 MPV 7.5 Neut % (Auto) 92.6 H Lymph % (Auto) 3.5 L Kemper % (Auto) 3.8 Eos % (Auto) 0.0 Baso % (Auto) 0.1 Neut # (Auto) 6.6 Lymph # (Auto) 0.2 L Kemper # (Auto) 0.3 Eos # (Auto) 0.0 Baso # (Auto) 0.0 WBC Differential . Differential Comment Auto diff final Critical Value Sodium 141 Potassium 3.9 Chloride 97 L Carbon Dioxide 40.8 H Anion Gap 3 L BUN 17 Creatinine 0.41 L Estimated GFR Greater than 89 POC Glucose 157 H Random Glucose 152 H Calcium 8.2 L Phosphorus 3.8 D Magnesium 2.4 Total Bilirubin 0.6 AST 71 H ALT 154 H Alkaline Phosphatase 115 Total Protein 5.4 L Albumin 2.6 L Nasal Screen MRSA (PCR) Legionella Antibody 10/09/18 10/09/18 10/09/18 06:34 09:00 11:33 WBC RBC Hgb Hct MCV MCH MCHC RDW Plt Count MPV Neut % (Auto) Lymph % (Auto) Kemper % (Auto) Eos % (Auto) Baso % (Auto) Neut # (Auto) Lymph # (Auto) Kemper # (Auto) Eos # (Auto) Baso # (Auto) WBC Differential Differential Comment Critical Value Sodium Potassium Chloride Carbon Dioxide Anion Gap BUN Creatinine Estimated GFR POC Glucose 158 H 134 H Random Glucose Calcium Phosphorus Magnesium Total Bilirubin AST ALT Alkaline Phosphatase Total Protein Albumin Nasal Screen MRSA (PCR) Not detected Legionella Antibody - Imaging Impressions Chest X-Ray 10/09/18 06:00 CONCLUSION: Bibasilar areas of consolidation, atelectasis and/or effusion. This appears worse when compared to the prior exam. <Jason Aviles - Last Filed: 10/09/18 15:47> Assessment and Plan - Plan Assessment: - Anemia with Hemoccult positive stools, known history of iron deficiency anemia on iron supplements prior to admission- now complaining of black, tarry stools states this is new since admission. Denies nausea, vomiting, abdominal pain, unintentional weight loss. Denies hematochezia. Denies previous need for blood transfusion prior to this admission. Has never had EGD or colonoscopy. Denies family history of colon cancer. Was taking frequent NSAIDs prior to admission for generalized pain. Was not on blood thinners. Denies ETOH. Was smoking 1 PPD. - COPD exacerbation and pneumonia- was on BiPAP, since been weaned to nasal cannula- pulmonology following, discussed with pulmonology, will obtain clearance prior to EGD and colonoscopy Plan: EGD and colonoscopy when cleared by pulmonology Discussed with Dr. Ocampo, planning for PFT Monitor H/H Protonix Further recommendations to follow This patient has been seen and examined by myself and Dr. Aviles and this note is written on his behalf <Kym Barrett - Last Filed: 10/09/18 15:25> - Attending Attestation Seen with Kym, discussed with patient. Thank you for the consult. <Jason Aviles - Last Filed: 10/09/18 15:47>
[2018-10-09] MEDS: Pantoprazole Inj 40 MG Vial IV.PUSH SCH (16:06)
--- NOTE | 2018-10-09 17:27 | P.PNPL ---
Subjective Interval history: 68 YOWF with COPD exac, Resp insuff, AMS Gets very anxious and sob Has wheezing Less anxious, weaned to NC Appetite poor Feels better today GI eval underway, planning for endoscopy Physical Exam Vital signs: Vital Signs 10/08/18 19:58 10/08/18 20:00 10/09/18 00:00 Temperature 98.3 F 98.4 F Pulse Rate 104 H 104 H Respiratory Rate 22 20 Blood Pressure 140/63 144/65 H Pulse Oximetry 96 98 94 L 10/09/18 02:17 10/09/18 02:18 10/09/18 04:00 Temperature 98.4 F Pulse Rate 97 H 101 H Respiratory Rate 15 20 Blood Pressure 144/77 H Pulse Oximetry 95 92 L 10/09/18 04:29 10/09/18 07:00 10/09/18 07:29 Temperature Pulse Rate 97 H 93 H 99 H Respiratory Rate 18 16 Blood Pressure Pulse Oximetry 95 10/09/18 07:47 10/09/18 08:00 10/09/18 09:00 Temperature 98.1 F Pulse Rate 96 H 106 H 114 H Respiratory Rate 22 Blood Pressure 149/68 H Pulse Oximetry 95 95 10/09/18 10:00 10/09/18 10:53 10/09/18 12:00 Temperature 98.7 F Pulse Rate 96 H 96 H 94 H Respiratory Rate 20 Blood Pressure 154/71 H Pulse Oximetry 97 10/09/18 13:00 10/09/18 13:25 10/09/18 14:00 Temperature Pulse Rate 104 H 102 H 98 H Respiratory Rate 16 Blood Pressure Pulse Oximetry 10/09/18 15:00 10/09/18 16:00 10/09/18 16:01 Temperature Pulse Rate 99 H 104 H 107 H Respiratory Rate 18 Blood Pressure Pulse Oximetry Intake & Output 10/08/18 10/09/18 10/09/18 18:59 06:59 18:59 Intake Total 800 / 800 340 / 340 Output Total 1400 / 1400 750 / 750 Balance -600 / -600 -410 / -410 Intake: IV 100 / 100 Rocephin Inj 1,000 MG In NS Inj 100 / 100 100 ML @ 200 mls/hr IV.SIG Q24H [facility] Rx#:[id number] Oral 800 / 800 240 / 240 Output: Urine 1400 / 1400 750 / 750 Other: Date of Last Bowel Movement 10/06/18 10/06/18 10/09/18 GENERAL: Elderly WF, NAD, eating dinner SKIN: Warm and dry. HEAD: Normocephalic. EYES: No scleral icterus. No injection or drainage. NECK: Supple, trachea midline. No JVD or lymphadenopathy. CARDIOVASCULAR: Regular rate and rhythm without murmurs, gallops, or rubs. RESPIRATORY: Breath sounds equal bilaterally. No accessory muscle use. GASTROINTESTINAL: Abdomen soft, non-tender, nondistended. MUSCULOSKELETAL: No cyanosis, or edema. BACK: Nontender without obvious deformity. No CVA tenderness. Assessment and Plan - Plan IMPRESSION: Resp Insuff COPD Exac Pneumonia AMS Anxiety disorder Nicotine use PLAN: Supplement 02 with NC BIPAP prn Buspar for anxiety and help her tolerate BIPAP IV Solumedrol Cont Abx Aerosol nebs Nicotine patch DW pt, her at BS Encouraged her to use Acapella and IS Check Bedside PFT
[2018-10-10] MEDS: Pantoprazole Inj 40 MG Vial IV.PUSH SCH ×2 (05:03→15:12)
[2018-10-10] MEDS: Senna/Docusate Sodium 8.6/50 MG Tablet PO SCH ×2 (08:43→22:12)
[2018-10-10] MEDS: Ascorbic Acid 500 MG Tablet PO SCH (08:43)
[2018-10-10] MEDS: MethylPREDNISolone Sod Succinate Inj 40 MG/ML Vial IV.PUSH SCH ×2 (08:43→22:13)
[2018-10-10] MEDS: Ferrous Sulfate 325 MG Tablet PO SCH ×2 (08:44→22:12)
[2018-10-10] MEDS: guaiFENesin 600 MG ER Tablet PO SCH ×2 (08:44→22:12)
[2018-10-10] MEDS: Nystatin Liq 500,000 UNIT/5 ML UDC PO SCH ×4 (08:44→22:11)
[2018-10-10] MEDS: Insulin NovoLOG Aspart Correctional Sugar Inj SQ SCH ×4 (08:46→22:16)
--- NOTE | 2018-10-10 11:48 | P.PNFP ---
Subjective Interval history: In bed sitting up, Voices she is breathing better Sat's are maintained on n/c. Hemoccult + Gi work up in progress Results - Labs Result diagrams: 10/09/18 04:41 10/09/18 04:41 Abnormal lab results 10/09/18 10/09/18 10/09/18 Range/Units 16:13 17:53 22:16 POC Glucose 199 H 302 H 114 H (68-110) mg/dl 10/10/18 10/10/18 Range/Units 06:13 07:46 POC Glucose 134 H 112 H (68-110) mg/dl Physical Exam Vital signs: Vital Signs 10/09/18 12:00 10/09/18 13:00 10/09/18 13:25 Temperature Pulse Rate 94 H 104 H 102 H Respiratory Rate 16 Blood Pressure Pulse Oximetry 10/09/18 14:00 10/09/18 15:00 10/09/18 16:00 Temperature 99.0 F Pulse Rate 98 H 99 H 104 H Respiratory Rate 20 Blood Pressure 160/74 H Pulse Oximetry 92 L 10/09/18 16:01 10/09/18 17:00 10/09/18 18:00 Temperature Pulse Rate 107 H 110 H 106 H Respiratory Rate 18 Blood Pressure Pulse Oximetry 10/09/18 19:00 10/09/18 20:00 10/09/18 21:00 Temperature 98.1 F Pulse Rate 92 H 102 H 100 H Respiratory Rate 16 Blood Pressure 168/100 H Pulse Oximetry 98 10/09/18 22:00 10/09/18 23:00 10/10/18 00:00 Temperature 99 F Pulse Rate 94 H 101 H 88 Respiratory Rate 16 Blood Pressure 142/60 H Pulse Oximetry 90 L 10/10/18 01:00 10/10/18 02:00 10/10/18 03:00 Temperature Pulse Rate 92 H 96 H 88 Respiratory Rate 20 Blood Pressure Pulse Oximetry 10/10/18 04:00 10/10/18 05:00 10/10/18 06:00 Temperature 99 F Pulse Rate 86 92 H 94 H Respiratory Rate 18 Blood Pressure 134/69 Pulse Oximetry 92 L 10/10/18 07:00 10/10/18 07:40 10/10/18 07:50 Temperature 96.6 F L Pulse Rate 89 96 H 97 H Respiratory Rate 17 20 Blood Pressure 142/59 H Pulse Oximetry 95 97 10/10/18 08:00 10/10/18 09:00 10/10/18 11:27 Temperature 98.3 F Pulse Rate 100 H 100 H 96 H Respiratory Rate 26 H Blood Pressure 134/56 L Pulse Oximetry 93 L 97 Intake & Output 10/09/18 10/10/18 10/10/18 18:59 06:59 18:59 Intake Total 940 / 940 580 / 580 Output Total 1650 / 1650 850 / 850 Balance -710 / -710 -270 / -270 Weight 55.2 kg Intake: IV 100 / 100 Rocephin Inj 1,000 MG In NS Inj 100 / 100 100 ML @ 200 mls/hr IV.SIG Q24H [facility] Rx#:[id number] Oral 940 / 940 480 / 480 Output: Urine 1650 / 1650 850 / 850 Other: Date of Last Bowel Movement 10/09/18 10/09/18 # Bowel Movements 3 1 - Constitutional no acute distress - Routine HEENT Exam Eye: Present: PERRL ENT: Present: mucous membranes moist - Routine Respiratory Exam Present: decreased breath sounds, wheezes - Routine Cardiovascular Exam Present: S1 - Routine Abdominal Exam Present: soft, normoactive bowel sounds - Routine Skin Exam Present: dry, warm - Routine Neurological Exam Present: alert, oriented X3 - Routine Psychiatric Exam Present: cooperative Assessment and Plan - Assessment (1) Acute exacerbation of chronic obstructive airways disease Code(s): J44.1 - Chronic obstructive pulmonary disease with (acute) exacerbation Status: Acute Plan: Pulmonary following, oxygen support on NC O2, bronchodilators, Solu -Medrol (2) Pneumonia Code(s): J18.9 - Pneumonia, unspecified organism Status: Acute Plan: Pulmonary following, cont Iv azithromycin, Rocephin. cxr 10/09 showing worsening consolidation. (3) Anemia Code(s): D64.9 - Anemia, unspecified Status: Acute Plan: Given unit blood, stool +, Gi work up in progress will cont to monitor (4) Hypokalemia Code(s): E87.6 - Hypokalemia Status: Ruled-out Plan: potassium is again normal this am - Assessment and Plan 10/03/18 patient seen this am, She is found in bed, alert. Family at bedside. She is dyspneic and on 4 liters. VSS. Pulmonary consulted, cxr done show worsening infiltrate. Call received from nurse at 1230-130, stating patient having trouble breathing more confused, family concerned. Nurse given order to transfer to ICU, vineyard supervisor consult placed at that time to assist with critical care management. 10/04/18 - Now in the ICU on BiPap. and son at the bedside. [employer] is monitoring and following. Her VS are stable. Pulmonary is following for COPD exacerbation and PNA. 10/05/18 - She did better overnight and is no longer requiring Bipap. She is awake, alert and conversive. Son and are at bedside. Labs noted and are stable. Still some exp wheezing on the right bu overall improved. 10/09/17- She was transferred to medical floor last night, voices she is breathing better. She does have some tremors. Cxr done today shows worsening consolidation. Pulmonary cont to follow. 10/10/17- Seen this am breathing better,had positive Hemoccult, Gi planning on EGD once cleared y pulmonary. VSS afebrile.
--- NOTE | 2018-10-10 11:50 | P.PNGI ---
Subjective Interval history: Patient sitting up in bed Family members at bedside Patient denies abdominal pain Staff nurse reports stools are tarry and dark Reports current iron supplementation for known iron deficiency anemia <Gianna Caldera - Last Filed: 10/10/18 11:43> Physical Exam Vital signs: Vital Signs 10/09/18 12:00 10/09/18 13:00 10/09/18 13:25 Temperature Pulse Rate 94 H 104 H 102 H Respiratory Rate 16 Blood Pressure Pulse Oximetry 10/09/18 14:00 10/09/18 15:00 10/09/18 16:00 Temperature 99.0 F Pulse Rate 98 H 99 H 104 H Respiratory Rate 20 Blood Pressure 160/74 H Pulse Oximetry 92 L 10/09/18 16:01 10/09/18 17:00 10/09/18 18:00 Temperature Pulse Rate 107 H 110 H 106 H Respiratory Rate 18 Blood Pressure Pulse Oximetry 10/09/18 19:00 10/09/18 20:00 10/09/18 21:00 Temperature 98.1 F Pulse Rate 92 H 102 H 100 H Respiratory Rate 16 Blood Pressure 168/100 H Pulse Oximetry 98 10/09/18 22:00 10/09/18 23:00 10/10/18 00:00 Temperature 99 F Pulse Rate 94 H 101 H 88 Respiratory Rate 16 Blood Pressure 142/60 H Pulse Oximetry 90 L 10/10/18 01:00 10/10/18 02:00 10/10/18 03:00 Temperature Pulse Rate 92 H 96 H 88 Respiratory Rate 20 Blood Pressure Pulse Oximetry 10/10/18 04:00 10/10/18 05:00 10/10/18 06:00 Temperature 99 F Pulse Rate 86 92 H 94 H Respiratory Rate 18 Blood Pressure 134/69 Pulse Oximetry 92 L 10/10/18 07:00 10/10/18 07:40 10/10/18 07:50 Temperature 96.6 F L Pulse Rate 89 96 H 97 H Respiratory Rate 17 20 Blood Pressure 142/59 H Pulse Oximetry 95 97 10/10/18 08:00 10/10/18 09:00 10/10/18 11:27 Temperature 98.3 F Pulse Rate 100 H 100 H 96 H Respiratory Rate 26 H Blood Pressure 134/56 L Pulse Oximetry 93 L 97 Intake & Output 10/09/18 10/10/18 10/10/18 18:59 06:59 18:59 Intake Total 940 / 940 580 / 580 Output Total 1650 / 1650 850 / 850 Balance -710 / -710 -270 / -270 Weight 55.2 kg Intake: IV 100 / 100 Rocephin Inj 1,000 MG In NS Inj 100 / 100 100 ML @ 200 mls/hr IV.SIG Q24H [facility] Rx#:[id number] Oral 940 / 940 480 / 480 Output: Urine 1650 / 1650 850 / 850 Other: Date of Last Bowel Movement 10/09/18 10/09/18 # Bowel Movements 3 1 - Constitutional chronically ill appearing - Routine HEENT Exam Head: Present: normocephalic - Routine Respiratory Exam Present: wheezes - Routine Cardiovascular Exam Present: RRR, S1, S2 - Routine Abdominal Exam Present: soft, normoactive bowel sounds. Absent: tenderness, distended, guarding, firm - Routine Extremities Exam Present: pulses intact. Absent: edema - Routine Skin Exam Present: dry, warm - Routine Neurological Exam Present: alert - Routine Psychiatric Exam Present: normal affect, cooperative <Caldera,Gianna - Last Filed: 10/10/18 11:43> Vital signs: Vital Signs 10/09/18 15:00 10/09/18 16:00 10/09/18 16:01 Temperature 99.0 F Pulse Rate 99 H 104 H 107 H Respiratory Rate 20 18 Blood Pressure 160/74 H Pulse Oximetry 92 L 10/09/18 17:00 10/09/18 18:00 10/09/18 19:00 Temperature Pulse Rate 110 H 106 H 92 H Respiratory Rate Blood Pressure Pulse Oximetry 10/09/18 20:00 10/09/18 21:00 10/09/18 22:00 Temperature 98.1 F Pulse Rate 102 H 100 H 94 H Respiratory Rate 16 Blood Pressure 168/100 H Pulse Oximetry 98 10/09/18 23:00 10/10/18 00:00 10/10/18 01:00 Temperature 99 F Pulse Rate 101 H 88 92 H Respiratory Rate 16 Blood Pressure 142/60 H Pulse Oximetry 90 L 10/10/18 02:00 10/10/18 03:00 10/10/18 04:00 Temperature 99 F Pulse Rate 96 H 88 86 Respiratory Rate 20 18 Blood Pressure 134/69 Pulse Oximetry 92 L 10/10/18 05:00 10/10/18 06:00 10/10/18 07:00 Temperature Pulse Rate 92 H 94 H 89 Respiratory Rate Blood Pressure Pulse Oximetry 10/10/18 07:40 10/10/18 07:50 10/10/18 08:00 Temperature 96.6 F L Pulse Rate 96 H 97 H 100 H Respiratory Rate 17 20 Blood Pressure 142/59 H Pulse Oximetry 95 97 93 L 10/10/18 09:00 10/10/18 10:00 10/10/18 11:00 Temperature Pulse Rate 100 H 110 H 97 H Respiratory Rate Blood Pressure Pulse Oximetry 10/10/18 11:27 10/10/18 12:00 10/10/18 13:00 Temperature 98.3 F Pulse Rate 96 H 100 H 98 H Respiratory Rate 26 H Blood Pressure 134/56 L Pulse Oximetry 97 10/10/18 14:00 Temperature Pulse Rate 102 H Respiratory Rate Blood Pressure Pulse Oximetry Intake & Output 10/09/18 10/10/18 10/10/18 18:59 06:59 18:59 Intake Total 940 / 940 580 / 580 Output Total 1650 / 1650 850 / 850 Balance -710 / -710 -270 / -270 Weight 55.2 kg Intake: IV 100 / 100 Rocephin Inj 1,000 MG In NS Inj 100 / 100 100 ML @ 200 mls/hr IV.SIG Q24H [facility] Rx#:[id number] Oral 940 / 940 480 / 480 Output: Urine 1650 / 1650 850 / 850 Other: Date of Last Bowel Movement 10/09/18 10/09/18 # Bowel Movements 3 1 <Jason Aviles A - Last Filed: 10/10/18 14:25> Results - Labs CBC & Chem 7: 10/09/18 04:41 10/09/18 04:41 Laboratory Results - last 24 hr 10/09/18 10/09/18 10/09/18 09:00 16:13 17:53 POC Glucose 199 H 302 H Nasal Screen MRSA (PCR) Not detected 10/09/18 10/10/18 10/10/18 22:16 06:13 07:46 POC Glucose 114 H 134 H 112 H Nasal Screen MRSA (PCR) Microbiology 10/09/18 09:00 Urine - Clean Catch Urine Streptococcus pneumoniae Antigen ( M - Final Presumptive negative for streptococcus pneumoniae antigen, suggesting no current or recent infection. Infection due to Streptococcus pneumoniae cannot be ruled out since the antigen present in the sample may be below the detection limit of the test. 10/09/18 09:00 Stool Occult Blood - Final Hemoccult positive <Gianna Caldera - Last Filed: 10/10/18 11:43> - Labs CBC & Chem 7: 10/09/18 04:41 10/09/18 04:41 Laboratory Results - last 24 hr 10/09/18 10/09/18 10/09/18 16:13 17:53 22:16 POC Glucose 199 H 302 H 114 H 10/10/18 10/10/18 10/10/18 06:13 07:46 11:32 POC Glucose 134 H 112 H 183 H Microbiology 10/09/18 09:00 Urine - Clean Catch Urine Streptococcus pneumoniae Antigen ( M - Final Presumptive negative for streptococcus pneumoniae antigen, suggesting no current or recent infection. Infection due to Streptococcus pneumoniae cannot be ruled out since the antigen present in the sample may be below the detection limit of the test. 10/09/18 09:00 Stool Occult Blood - Final Hemoccult positive <Jason Aviles - Last Filed: 10/10/18 14:25> Assessment and Plan - Plan Assessment: - Anemia with Hemoccult positive stools, known history of iron deficiency anemia on iron supplements prior to admission- now complaining of black, tarry stools states this is new since admission. Denies nausea, vomiting, abdominal pain, unintentional weight loss. Denies hematochezia. Denies previous need for blood transfusion prior to this admission. Has never had EGD or colonoscopy. Denies family history of colon cancer. Was taking frequent NSAIDs prior to admission for generalized pain. Was not on blood thinners. Denies ETOH. Was smoking 1 PPD. - COPD exacerbation and pneumonia- was on BiPAP, since been weaned to nasal cannula- pulmonology following, discussed with pulmonology, will obtain clearance prior to EGD and colonoscopy 10/10/2018 Anemia with heme positive stools COPD exacerbation-pneumonia Patient currently receiving iron supplementation, known iron deficiency anemia Bedside RN reports black tarry stools 10/09/2018 WBC 7.1 hemoglobin 8.2 hematocrit 26.5 platelet count 351-stable Currently utilizing 4 L nasal cannula with scattered wheezes present-O2 saturation 97% respiratory rate 26 Noted shortness of breath on exertion with accessory muscle use Plan -Pulmonary function test plan today -EGD and colonoscopy post pulmonology clearance-PFT testing -Monitor hemoglobin and hematocrit -Pantoprazole 40 mg IV every 12 hours -Further recommendations to follow -Supportive care This patient has been seen and examined by myself and Dr. Aviles and this note is written on his behalf - Attending Attestation Dr. Aviles <Gianna Caldera - Last Filed: 10/10/18 11:43> - Attending Attestation Pending clearance, EGD and Colonoscopy once cleared. Further recommendations to follow. <Jason Aviles - Last Filed: 10/10/18 14:25>
--- NOTE | 2018-10-10 19:03 | P.PNPL ---
Subjective Interval history: 68 YOWF with COPD exac, Resp insuff, AMS Gets very anxious and sob Has wheezing Less anxious, weaned to NC Appetite poor Feels better today PFT Severe COPD with FEV1 24% of predicted Physical Exam Vital signs: Vital Signs 10/09/18 20:00 10/09/18 21:00 10/09/18 22:00 Temperature 98.1 F Pulse Rate 102 H 100 H 94 H Respiratory Rate 16 Blood Pressure 168/100 H Pulse Oximetry 98 10/09/18 23:00 10/10/18 00:00 10/10/18 01:00 Temperature 99 F Pulse Rate 101 H 88 92 H Respiratory Rate 16 Blood Pressure 142/60 H Pulse Oximetry 90 L 10/10/18 02:00 10/10/18 03:00 10/10/18 04:00 Temperature 99 F Pulse Rate 96 H 88 86 Respiratory Rate 20 18 Blood Pressure 134/69 Pulse Oximetry 92 L 10/10/18 05:00 10/10/18 06:00 10/10/18 07:00 Temperature Pulse Rate 92 H 94 H 89 Respiratory Rate Blood Pressure Pulse Oximetry 10/10/18 07:40 10/10/18 07:50 10/10/18 08:00 Temperature 96.6 F L Pulse Rate 96 H 97 H 100 H Respiratory Rate 17 20 Blood Pressure 142/59 H Pulse Oximetry 95 97 93 L 10/10/18 09:00 10/10/18 10:00 10/10/18 11:00 Temperature Pulse Rate 100 H 110 H 97 H Respiratory Rate Blood Pressure Pulse Oximetry 10/10/18 11:27 10/10/18 12:00 10/10/18 13:00 Temperature 98.3 F Pulse Rate 96 H 100 H 98 H Respiratory Rate 26 H Blood Pressure 134/56 L Pulse Oximetry 97 10/10/18 14:00 10/10/18 15:00 10/10/18 15:11 Temperature 99.5 F Pulse Rate 102 H 102 H 105 H Respiratory Rate 22 Blood Pressure 118/50 L Pulse Oximetry 95 10/10/18 15:33 10/10/18 16:00 10/10/18 17:00 Temperature Pulse Rate 100 H 102 H 106 H Respiratory Rate 16 Blood Pressure Pulse Oximetry 10/10/18 18:00 Temperature Pulse Rate 100 H Respiratory Rate Blood Pressure Pulse Oximetry Intake & Output 01/01/2310/10/18 10/11/18 06:59 18:59 06:59 Intake Total 580 / 580 1600 / 1600 Output Total 850 / 850 900 / 900 Balance -270 / -270 700 / 700 Weight 55.2 kg Intake: IV 100 / 100 100 / 100 Rocephin Inj 1,000 MG In NS Inj 100 / 100 100 / 100 100 ML @ 200 mls/hr IV.SIG Q24H [facility] Rx#:[id number] Oral 480 / 480 1500 / 1500 Output: Urine 850 / 850 900 / 900 Other: Date of Last Bowel Movement 10/09/18 # Bowel Movements 1 GENERAL: Elderly WF, NAD SKIN: Warm and dry. HEAD: Normocephalic. EYES: No scleral icterus. No injection or drainage. NECK: Supple, trachea midline. No JVD or lymphadenopathy. CARDIOVASCULAR: Regular rate and rhythm without murmurs, gallops, or rubs. RESPIRATORY: Breath sounds equal bilaterally. No accessory muscle use. GASTROINTESTINAL: Abdomen soft, non-tender, nondistended. MUSCULOSKELETAL: No cyanosis, or edema. BACK: Nontender without obvious deformity. No CVA tenderness. Assessment and Plan - Plan IMPRESSION: Resp Insuff Severe COPD Pneumonia AMS Anxiety disorder Nicotine use PLAN: Supplement 02 with NC BIPAP prn Buspar for anxiety and help her tolerate BIPAP IV Solumedrol Cont Abx Aerosol nebs Nicotine patch DW pt, her at Encouraged her to use Acapella and IS Due to severe COPD , pt will be mod to high risk of pulm complications from aneathesia.
[2018-10-11] MEDS: Pantoprazole Inj 40 MG Vial IV.PUSH SCH ×2 (06:19→17:05)
[2018-10-11] MEDS: MethylPREDNISolone Sod Succinate Inj 40 MG/ML Vial IV.PUSH SCH (09:00)
[2018-10-11] MEDS: Ascorbic Acid 500 MG Tablet PO SCH (09:00)
[2018-10-11] MEDS: Ferrous Sulfate 325 MG Tablet PO SCH ×2 (09:00→20:19)
[2018-10-11] MEDS: Senna/Docusate Sodium 8.6/50 MG Tablet PO SCH ×2 (09:00→20:19)
[2018-10-11] MEDS: Nystatin Liq 500,000 UNIT/5 ML UDC PO SCH ×4 (09:00→20:19)
[2018-10-11] MEDS: guaiFENesin 600 MG ER Tablet PO SCH ×2 (09:00→20:19)
[2018-10-11] MEDS: Insulin NovoLOG Aspart Correctional Sugar Inj SQ SCH ×4 (09:05→23:52)
--- NOTE | 2018-10-11 09:38 | P.PNGI ---
Subjective Interval history: Pt is sitting on BSC. Denies nausea, vomiting, abd pain or bleeding. Hasn't had BM in few days. On 4L of O2. Physical Exam Vital signs: Vital Signs 10/10/18 10:00 10/10/18 11:00 10/10/18 11:27 Temperature 98.3 F Pulse Rate 110 H 97 H 96 H Respiratory Rate 26 H Blood Pressure 134/56 L Pulse Oximetry 97 10/10/18 12:00 10/10/18 13:00 10/10/18 14:00 Temperature Pulse Rate 100 H 98 H 102 H Respiratory Rate Blood Pressure Pulse Oximetry 10/10/18 15:00 10/10/18 15:11 10/10/18 15:33 Temperature 99.5 F Pulse Rate 102 H 105 H 100 H Respiratory Rate 22 16 Blood Pressure 118/50 L Pulse Oximetry 95 10/10/18 16:00 10/10/18 17:00 10/10/18 18:00 Temperature Pulse Rate 102 H 106 H 100 H Respiratory Rate Blood Pressure Pulse Oximetry 10/10/18 19:00 10/10/18 19:31 10/10/18 20:00 Temperature 98.3 F Pulse Rate 102 H 98 H 104 H Respiratory Rate 16 18 Blood Pressure 133/60 Pulse Oximetry 97 97 10/10/18 21:00 10/10/18 22:00 10/10/18 23:00 Temperature Pulse Rate 90 96 H 89 Respiratory Rate Blood Pressure Pulse Oximetry 10/10/18 23:40 10/11/18 00:00 10/11/18 01:00 Temperature 98.3 F Pulse Rate 100 H 90 88 Respiratory Rate 16 18 Blood Pressure 133/60 Pulse Oximetry 97 10/11/18 02:00 10/11/18 03:00 10/11/18 03:53 Temperature Pulse Rate 88 90 96 H Respiratory Rate 16 Blood Pressure Pulse Oximetry 10/11/18 04:00 10/11/18 05:00 10/11/18 06:00 Temperature 98.1 F Pulse Rate 98 H 106 H 92 H Respiratory Rate 18 Blood Pressure 143/65 H Pulse Oximetry 93 L 10/11/18 08:00 Temperature Pulse Rate 96 H Respiratory Rate 14 Blood Pressure Pulse Oximetry 97 Intake & Output 10/10/18 10/11/18 10/11/18 18:59 06:59 18:59 Intake Total 1600 / 1600 620 / 620 Output Total 900 / 900 550 / 550 Balance 700 / 700 70 / 70 Weight 55.6 kg Intake: IV 100 / 100 Rocephin Inj 1,000 MG In NS Inj 100 / 100 100 ML @ 200 mls/hr IV.SIG Q24H [facility] Rx#:[id number] Oral 1500 / 1500 620 / 620 Output: Urine 900 / 900 550 / 550 Other: Date of Last Bowel Movement 10/09/18 10/09/18 Narrative: GENERAL: Very pleasant 68-year-old female frail, appears short of breath SKIN: Warm and dry. HEAD: Atraumatic. Normocephalic. CARDIOVASCULAR: Regular rate and rhythm. RESPIRATORY: No accessory muscle use. Wheezing. Bronchial sounds. GASTROINTESTINAL: Abdomen soft, non-tender, nondistended. Hepatic and splenic margins not palpable. MUSCULOSKELETAL: Muscle waisting. Extremities without clubbing, cyanosis, or edema. NEUROLOGICAL: Awake and alert. No obvious cranial nerve deficits. PSYCHIATRIC: Appropriate mood and affect; insight and judgment normal. Results - Labs CBC & Chem 7: 10/09/18 04:41 10/09/18 04:41 Laboratory Results - last 24 hr 10/10/18 10/10/18 10/10/18 11:32 16:35 20:57 POC Glucose 183 H 186 H 127 H 10/11/18 07:04 POC Glucose 132 H Microbiology 10/10/18 08:00 Sputum - Expectorated Sputum Gram Stain - Final Assessment and Plan - Plan - Anemia with heme positive stools known history of iron deficiency anemia on iron supplements prior to admission Was taking frequent NSAIDs prior to admission for generalized pain. hgb has been steady, no labs done today Noted shortness of breath on exertion, on 4L of O2 Hasn't had Bm in few days - COPD exacerbation-pneumonia- pulmonology on the case, Due to severe COPD , pt will be mod to high risk of pulm complications from anesthesia. was on BiPAP, since been weaned to nasal cannula, but now Bipap as needed Plan - Per pulmonology "Due to severe COPD , pt will be mod to high risk of pulm complications from anesthesia" -EGD and colonoscopy once respiratory status has improved -Monitor hemoglobin and hematocrit -Pantoprazole 40 mg IV every 12 hours -Further recommendations to follow -Supportive care This patient has been seen and examined by myself and Dr. Cai and this note is written on her behalf
--- NOTE | 2018-10-11 15:23 | P.PNPL ---
Subjective Interval history: 68 YOWF with COPD exac, Resp insuff, AMS Gets very anxious and sob Has wheezing Less anxious, weaned to NC Appetite poor Feels better today Up in the chair Physical Exam Vital signs: Vital Signs 10/10/18 15:33 10/10/18 16:00 10/10/18 17:00 Temperature Pulse Rate 100 H 102 H 106 H Respiratory Rate 16 Blood Pressure Pulse Oximetry 10/10/18 18:00 10/10/18 19:00 10/10/18 19:31 Temperature Pulse Rate 100 H 102 H 98 H Respiratory Rate 16 Blood Pressure Pulse Oximetry 97 10/10/18 20:00 10/10/18 21:00 10/10/18 22:00 Temperature 98.3 F Pulse Rate 104 H 90 96 H Respiratory Rate 18 Blood Pressure 133/60 Pulse Oximetry 97 10/10/18 23:00 10/10/18 23:40 10/11/18 00:00 Temperature 98.3 F Pulse Rate 89 100 H 90 Respiratory Rate 16 18 Blood Pressure 133/60 Pulse Oximetry 97 10/11/18 01:00 10/11/18 02:00 10/11/18 03:00 Temperature Pulse Rate 88 88 90 Respiratory Rate Blood Pressure Pulse Oximetry 10/11/18 03:53 10/11/18 04:00 10/11/18 05:00 Temperature 98.1 F Pulse Rate 96 H 98 H 106 H Respiratory Rate 16 18 Blood Pressure 143/65 H Pulse Oximetry 93 L 10/11/18 06:00 10/11/18 07:00 10/11/18 08:00 Temperature 98.7 F Pulse Rate 92 H 105 H 96 H Respiratory Rate 16 14 Blood Pressure 133/60 Pulse Oximetry 93 L 93 L 10/11/18 09:00 10/11/18 10:00 10/11/18 11:00 Temperature 99.6 F Pulse Rate 104 H 108 H 99 H Respiratory Rate 20 Blood Pressure 131/53 L Pulse Oximetry 90 L 10/11/18 11:55 Temperature Pulse Rate 106 H Respiratory Rate 16 Blood Pressure Pulse Oximetry Intake & Output 10/10/18 10/11/18 10/11/18 18:59 06:59 18:59 Intake Total 1600 / 1600 620 / 620 Output Total 900 / 900 550 / 550 Balance 700 / 700 70 / 70 Weight 55.6 kg Intake: IV 100 / 100 Rocephin Inj 1,000 MG In NS Inj 100 / 100 100 ML @ 200 mls/hr IV.SIG Q24H [facility] Rx#:[id number] Oral 1500 / 1500 620 / 620 Output: Urine 900 / 900 550 / 550 Other: Date of Last Bowel Movement 10/09/18 10/09/18 10/11/18 GENERAL: Elderly WF, NAD SKIN: Warm and dry. HEAD: Normocephalic. EYES: No scleral icterus. No injection or drainage. NECK: Supple, trachea midline. No JVD or lymphadenopathy. CARDIOVASCULAR: Regular rate and rhythm without murmurs, gallops, or rubs. RESPIRATORY: Breath sounds equal bilaterally. No accessory muscle use. GASTROINTESTINAL: Abdomen soft, non-tender, nondistended. MUSCULOSKELETAL: No cyanosis, or edema. BACK: Nontender without obvious deformity. No CVA tenderness. Assessment and Plan - Plan IMPRESSION: Resp Insuff Severe COPD Pneumonia AMS Anxiety disorder Nicotine use PLAN: Supplement 02 with NC BIPAP prn Buspar for anxiety and help her tolerate BIPAP DC Solumedrol. Prednisone 10 mg tid Cont Abx Aerosol nebs Nicotine patch Encouraged her to use Acapella and IS Due to severe COPD , pt will be mod to high risk of pulm complications from aneathesia.
--- NOTE | 2018-10-11 16:03 | P.PNIM ---
Subjective Interval history: still feels somewhat short of breath but reports improvement. Physical Exam Vital signs: Last Vital Signs Temp 98.9 F 10/11/18 15:00 Pulse 103 H 10/11/18 15:00 Resp 16 10/11/18 15:00 BP 140/68 10/11/18 15:00 Pulse Ox 91 L 10/11/18 15:00 Intake & Output 10/09/18 10/10/18 10/11/18 10/12/18 06:59 06:59 06:59 06:59 Intake Total 1140 / 1140 1520 / 1520 2220 / 2220 Output Total 2150 / 2150 2500 / 2500 1450 / 1450 Balance -1010 / -1010 -980 / -980 770 / 770 Weight 55.2 kg 55.6 kg Narrative: GENERAL:middle aged woman, does not appear distressed. SKIN: Warm and dry. HEAD: Atraumatic. Normocephalic. CARDIOVASCULAR: Regular rate and rhythm. RESPIRATORY: No accessory muscle use.Equal air entry,occasional scattered wheeze , no rales. GASTROINTESTINAL: Abdomen soft, non-tender, nondistended. Hepatic and splenic margins not palpable. MUSCULOSKELETAL: Muscle waisting. Extremities without clubbing, cyanosis, or edema. NEUROLOGICAL: Awake and alert. No obvious cranial nerve deficits. PSYCHIATRIC: Appropriate mood and affect; insight and judgment normal. Results Labs CBC & Chem 7: 10/12/18 14:01 10/09/18 04:41 Labs: Microbiology 10/10/18 08:00 Sputum - Expectorated Sputum Gram Stain - Final 10/10/18 08:00 Sputum - Expectorated Sputum Sputum Culture - Preliminary Heavy growth normal respiratory marjorie at 24 hours Assessment and Plan Plan 68-year-old female with PMH of CRF and COPD on 2-4 L by NC at home recently requiring 4-5 L per patient at home,Hyperlipidemia, depression, h/o shingles, presented on 10/01 with worsening shortness of breath and anemia, was admitted for COPD exacerbation and anemia. She decompensated on 10/03 due to acute respiratory failure and metabolic encephalopathy and pneumonia and critical care team consulted.Patient was admitted to the [facility]. Acute respiratory failure-resolved. Metabolic encephalopathy-resolved. COPD exacerbation--improving. cont on bronchodilators, switched to PO Prednisone today 10mg tid,cont Oxygen by nasal canula. BIPAP prn incentive spirometry. Community Acquired Pneumonia-continue Ceftriaxone/Azithromycin Anemia with heme occult positive stools- on iron supplements, Pantoprazole bid. GI consult planning for EGD colonoscopy, pulmonary deemed patient moderate to high risk for procedure. Progress Note: Quality VTE Deep Vein Thrombosis/Pulmonary Embolism Present on Admission: No
[2018-10-11] MEDS: predniSONE 10 MG Tablet PO SCH (17:06)
[2018-10-12] MEDS: Pantoprazole Inj 40 MG Vial IV.PUSH SCH ×2 (04:08→17:53)
[2018-10-12] MEDS: guaiFENesin 600 MG ER Tablet PO SCH ×2 (08:47→20:44)
[2018-10-12] MEDS: Ascorbic Acid 500 MG Tablet PO SCH (08:47)
[2018-10-12] MEDS: Ferrous Sulfate 325 MG Tablet PO SCH ×2 (08:47→20:44)
[2018-10-12] MEDS: predniSONE 10 MG Tablet PO SCH ×3 (08:48→17:54)
[2018-10-12] MEDS: Senna/Docusate Sodium 8.6/50 MG Tablet PO SCH ×2 (08:48→20:44)
--- NOTE | 2018-10-12 12:05 | P.PNGI ---
Subjective Interval history: Pt is resting in bed. Denies nausea, vomiting, hematemesis or pain. States she always has black stools due to iron supplement <Dionte Mckinley - Last Filed: 10/12/18 12:02> Physical Exam Vital signs: Vital Signs 10/11/18 13:00 10/11/18 14:00 10/11/18 15:00 Temperature 98.9 F Pulse Rate 104 H 104 H 98 H Respiratory Rate 16 Blood Pressure 140/68 Pulse Oximetry 91 L 10/11/18 16:00 10/11/18 17:00 10/11/18 18:00 Temperature Pulse Rate 100 H 106 H 108 H Respiratory Rate Blood Pressure Pulse Oximetry 10/11/18 19:00 10/11/18 20:00 10/11/18 20:05 Temperature 98.2 F Pulse Rate 98 H 96 H Respiratory Rate 18 Blood Pressure 132/79 Pulse Oximetry 98 96 10/11/18 20:08 10/11/18 21:00 10/11/18 22:00 Temperature Pulse Rate 91 H 98 H 86 Respiratory Rate 19 Blood Pressure Pulse Oximetry 10/11/18 23:00 10/12/18 00:00 10/12/18 01:00 Temperature 97.9 F Pulse Rate 91 H 86 92 H Respiratory Rate 14 Blood Pressure 138/58 L Pulse Oximetry 100 10/12/18 02:00 10/12/18 03:00 10/12/18 04:00 Temperature 98.1 F Pulse Rate 84 84 83 Respiratory Rate 20 Blood Pressure 136/63 Pulse Oximetry 89 L 10/12/18 05:00 10/12/18 06:00 10/12/18 07:00 Temperature 98.2 F Pulse Rate 84 83 102 H Respiratory Rate 18 Blood Pressure 121/51 L Pulse Oximetry 91 L 10/12/18 07:47 10/12/18 08:00 10/12/18 11:00 Temperature 98.0 F Pulse Rate 93 H 95 H Respiratory Rate 14 18 Blood Pressure 129/65 Pulse Oximetry 96 94 L 94 L Intake & Output 10/11/18 10/12/18 10/12/18 18:59 06:59 18:59 Intake Total 580 / 580 240 / 240 Output Total 900 / 900 800 / 800 Balance -320 / -320 -560 / -560 Weight 53.5 kg Intake: IV 100 / 100 Rocephin Inj 1,000 MG In NS Inj 100 / 100 100 ML @ 200 mls/hr IV.SIG Q24H [facility] Rx#:[id number] Oral 480 / 480 240 / 240 Output: Urine 900 / 900 800 / 800 Other: Date of Last Bowel Movement 10/11/18 10/12/18 # Bowel Movements 2 Narrative: GENERAL:middle aged woman, does not appear distressed. SKIN: Warm and dry. HEAD: Atraumatic. Normocephalic. CARDIOVASCULAR: Regular rate and rhythm. RESPIRATORY: No accessory muscle use.Equal air entry,occasional scattered wheeze , no rales. GASTROINTESTINAL: Abdomen soft, non-tender, nondistended. Hepatic and splenic margins not palpable. MUSCULOSKELETAL: Muscle waisting. Extremities without clubbing, cyanosis, or edema. NEUROLOGICAL: Awake and alert. No obvious cranial nerve deficits. PSYCHIATRIC: Appropriate mood and affect; insight and judgment normal. <GuerlineErnesto [email or web address] - Last Filed: 10/12/18 12:02> Vital signs: Vital Signs 10/11/18 14:00 10/11/18 15:00 10/11/18 16:00 Temperature 98.9 F Pulse Rate 104 H 98 H 100 H Respiratory Rate 16 Blood Pressure 140/68 Pulse Oximetry 91 L 10/11/18 17:00 10/11/18 18:00 10/11/18 19:00 Temperature 98.2 F Pulse Rate 106 H 108 H 98 H Respiratory Rate 18 Blood Pressure 132/79 Pulse Oximetry 98 10/11/18 20:00 10/11/18 20:05 10/11/18 20:08 Temperature Pulse Rate 96 H 91 H Respiratory Rate 19 Blood Pressure Pulse Oximetry 96 10/11/18 21:00 10/11/18 22:00 10/11/18 23:00 Temperature 97.9 F Pulse Rate 98 H 86 91 H Respiratory Rate 14 Blood Pressure 138/58 L Pulse Oximetry 100 10/12/18 00:00 10/12/18 01:00 10/12/18 02:00 Temperature Pulse Rate 86 92 H 84 Respiratory Rate Blood Pressure Pulse Oximetry 10/12/18 03:00 10/12/18 04:00 10/12/18 05:00 Temperature 98.1 F Pulse Rate 84 83 84 Respiratory Rate 20 Blood Pressure 136/63 Pulse Oximetry 89 L 10/12/18 06:00 10/12/18 07:00 10/12/18 07:47 Temperature 98.2 F Pulse Rate 83 102 H 93 H Respiratory Rate 18 14 Blood Pressure 121/51 L Pulse Oximetry 91 L 96 10/12/18 08:00 10/12/18 09:00 10/12/18 10:00 Temperature Pulse Rate 96 H 98 H 104 H Respiratory Rate Blood Pressure Pulse Oximetry 94 L 10/12/18 11:00 10/12/18 12:00 Temperature 98.0 F Pulse Rate 89 106 H Respiratory Rate 18 Blood Pressure 129/65 Pulse Oximetry 94 L Intake & Output 10/11/18 10/12/18 10/12/18 18:59 06:59 18:59 Intake Total 580 / 580 240 / 240 Output Total 900 / 900 800 / 800 Balance -320 / -320 -560 / -560 Weight 53.5 kg Intake: IV 100 / 100 Rocephin Inj 1,000 MG In NS Inj 100 / 100 100 ML @ 200 mls/hr IV.SIG Q24H [facility] Rx#:[id number] Oral 480 / 480 240 / 240 Output: Urine 900 / 900 800 / 800 Other: Date of Last Bowel Movement 10/11/18 10/12/18 # Bowel Movements 2 <CecilleivanRosie - Last Filed: 10/12/18 13:19> Results - Labs CBC & Chem 7: 10/09/18 04:41 10/09/18 04:41 Laboratory Results - last 24 hr 10/11/18 10/11/18 10/12/18 16:29 20:17 05:37 POC Glucose 244 H 120 H 93 10/12/18 08:43 POC Glucose 128 H Microbiology 10/10/18 08:00 Sputum - Expectorated Sputum Gram Stain - Final 10/10/18 08:00 Sputum - Expectorated Sputum Sputum Culture - Final Heavy growth normal respiratory marjorie <Dionte Mckinley - Last Filed: 10/12/18 12:02> - Labs CBC & Chem 7: 10/09/18 04:41 10/09/18 04:41 Laboratory Results - last 24 hr 10/11/18 10/11/18 10/12/18 16:29 20:17 05:37 POC Glucose 244 H 120 H 93 10/12/18 10/12/18 08:43 12:27 POC Glucose 128 H 200 H Microbiology 10/10/18 08:00 Sputum - Expectorated Sputum Gram Stain - Final 10/10/18 08:00 Sputum - Expectorated Sputum Sputum Culture - Final Heavy growth normal respiratory marjorie <Rosie Cai - Last Filed: 10/12/18 13:19> Assessment and Plan - Plan - Anemia with heme positive stools known history of iron deficiency anemia on iron supplements prior to admission Was taking frequent NSAIDs prior to admission for generalized pain. hgb has been steady, no labs done today Noted shortness of breath on exertion, on 4L of O2 States she always has black stools due to iron supplement - COPD exacerbation-pneumonia- pulmonology on the case, Due to severe COPD , pt will be mod to high risk of pulm complications from anesthesia. was on BiPAP, since been weaned to nasal cannula, but now Bipap as needed Plan - Per pulmonology "Due to severe COPD , pt will be mod to high risk of pulm complications from anesthesia" -EGD and colonoscopy once respiratory status has improved - Will order cbc today, no labs for few days -Monitor hemoglobin and hematocrit -Pantoprazole 40 mg IV every 12 hours -Further recommendations to follow -Supportive care This patient has been seen and examined by myself and Dr. Cai and this note is written on her behalf <Dionte Mckinley - Last Filed: 10/12/18 12:02> - Attending Attestation agree with above <Rosie Cai - Last Filed: 10/12/18 13:19>
[2018-10-12] MEDS: Insulin NovoLOG Aspart Correctional Sugar Inj SQ SCH ×4 (13:07→20:45)
[2018-10-12 14:31] LABS: Baso % (Auto) 0.1 % (0.0-2.0); Eos % (Auto) 0.1 % (0.0-4.0); Hematocrit 27.2 % (35.0-46.0); Hemoglobin 8.5 gm/dL (11.6-15.3); Lymph # (Auto) 0.4 th/mm3 (1.0-4.8); Lymph % (Auto) 4.6 % (9.0-44.0); Mean Corpuscular HGB Conc 31.2 % (32.0-36.0); Mean Corpuscular Hemoglobin 27.3 pg (27.0-34.0); Mean Corpuscular Volume 87.4 fL (80.0-100.0); Mean Platelet Volume 7.7 fL (7.0-11.0); Mono # (Auto) 0.5 th/mm3 (0.0-0.9); Mono % (Auto) 5.3 % (0.0-8.0); Neut # (Auto) 8.5 th/mm3 (1.8-7.7); Neut % (Auto) 89.9 % (16.0-70.0); Platelet Count 287 th/mm3 (150-450); Red Blood Count 3.11 mil/mm3 (4.00-5.30); Red Cell Distribution Width 21.2 % (11.6-17.2); White Blood Count 9.4 th/mm3 (4.0-11.0)
--- NOTE | 2018-10-12 15:29 | P.PNIM ---
Physical Exam Vital signs: Last Vital Signs Temp 98.0 F 10/12/18 11:00 Pulse 106 H 10/12/18 12:00 Resp 18 10/12/18 11:00 BP 129/65 10/12/18 11:00 Pulse Ox 94 L 10/12/18 11:00 Intake & Output 10/10/18 10/11/18 10/12/18 10/13/18 06:59 06:59 06:59 06:59 Intake Total 1520 / 1520 2220 / 2220 820 / 820 Output Total 2500 / 2500 1450 / 1450 1700 / 1700 Balance -980 / -980 770 / 770 -880 / -880 Weight 55.2 kg 55.6 kg 53.5 kg Narrative: GENERAL:middle aged woman, does not appear distressed. SKIN: Warm and dry. HEAD: Atraumatic. Normocephalic. CARDIOVASCULAR: Regular rate and rhythm. RESPIRATORY: No accessory muscle use.Equal air entry,no wheezes, no rales. GASTROINTESTINAL: Abdomen soft, non-tender, nondistended. Hepatic and splenic margins not palpable. MUSCULOSKELETAL: Muscle waisting. Extremities without clubbing, cyanosis, or edema. NEUROLOGICAL: Awake and alert. No obvious cranial nerve deficits. PSYCHIATRIC: Appropriate mood and affect; insight and judgment normal. Results Labs CBC & Chem 7: 10/12/18 14:01 10/09/18 04:41 Labs: Microbiology 10/10/18 08:00 Sputum - Expectorated Sputum Gram Stain - Final 10/10/18 08:00 Sputum - Expectorated Sputum Sputum Culture - Final Heavy growth normal respiratory marjorie Assessment and Plan Plan 68-year-old female with PMH of CRF and COPD on 2-4 L by NM at home recently requiring 4-5 L per patient at home,Hyperlipidemia, depression, h/o shingles, presented on 10/01 with worsening shortness of breath and anemia, was admitted for COPD exacerbation and anemia. She decompensated on 10/03 due to acute respiratory failure and metabolic encephalopathy and pneumonia and critical care team consulted.Patient was admitted to the [facility] [place]. Acute respiratory failure-resolved. Metabolic encephalopathy-resolved. COPD exacerbation--improving. cont on bronchodilators, switched to PO Prednisone today 10mg tid,cont Oxygen by nasal canula. BIPAP prn, on Buspar for anxiety. incentive spirometry. Community Acquired Pneumonia-continue Ceftriaxone/Azithromycin Anemia with heme occult positive stools- Hb has been stable in the 8's range for the last 1 week. on iron supplements, IV Pantoprazole bid. GI consult planning for EGD and colonoscopy when respiratory status improves. pulmonary deemed patient moderate to high risk for procedure. Progress Note: Quality VTE Deep Vein Thrombosis/Pulmonary Embolism Present on Admission: No
[2018-10-12] MEDS: Nystatin Liq 500,000 UNIT/5 ML UDC PO SCH ×4 (15:35→23:09)
--- NOTE | 2018-10-12 17:17 | P.PNPL ---
Subjective Interval history: 68 YOWF with COPD exac, Resp insuff, AMS Gets very anxious and sob Has wheezing Less anxious, weaned to NC Appetite poor Feels better today Physical Exam Vital signs: Vital Signs 10/11/18 18:00 10/11/18 19:00 10/11/18 20:00 Temperature 98.2 F Pulse Rate 108 H 98 H 96 H Respiratory Rate 18 Blood Pressure 132/79 Pulse Oximetry 98 10/11/18 20:05 10/11/18 20:08 10/11/18 21:00 Temperature Pulse Rate 91 H 98 H Respiratory Rate 19 Blood Pressure Pulse Oximetry 96 10/11/18 22:00 10/11/18 23:00 10/12/18 00:00 Temperature 97.9 F Pulse Rate 86 91 H 86 Respiratory Rate 14 Blood Pressure 138/58 L Pulse Oximetry 100 10/12/18 01:00 10/12/18 02:00 10/12/18 03:00 Temperature 98.1 F Pulse Rate 92 H 84 84 Respiratory Rate 20 Blood Pressure 136/63 Pulse Oximetry 89 L 10/12/18 04:00 10/12/18 05:00 10/12/18 06:00 Temperature Pulse Rate 83 84 83 Respiratory Rate Blood Pressure Pulse Oximetry 10/12/18 07:00 10/12/18 07:47 10/12/18 08:00 Temperature 98.2 F Pulse Rate 102 H 93 H 96 H Respiratory Rate 18 14 Blood Pressure 121/51 L Pulse Oximetry 91 L 96 94 L 10/12/18 09:00 10/12/18 10:00 10/12/18 11:00 Temperature 98.0 F Pulse Rate 98 H 104 H 89 Respiratory Rate 18 Blood Pressure 129/65 Pulse Oximetry 94 L 10/12/18 12:00 10/12/18 13:00 10/12/18 14:00 Temperature Pulse Rate 106 H 100 H 100 H Respiratory Rate Blood Pressure Pulse Oximetry 10/12/18 15:00 10/12/18 16:00 Temperature 98.0 F Pulse Rate 96 H 92 H Respiratory Rate 18 Blood Pressure 145/69 H Pulse Oximetry 96 Intake & Output 10/11/18 10/12/18 10/12/18 18:59 06:59 18:59 Intake Total 580 / 580 240 / 240 Output Total 900 / 900 800 / 800 Balance -320 / -320 -560 / -560 Weight 53.5 kg Intake: IV 100 / 100 Rocephin Inj 1,000 MG In NS Inj 100 / 100 100 ML @ 200 mls/hr IV.SIG Q24H [facility] Rx#:[id number] Oral 480 / 480 240 / 240 Output: Urine 900 / 900 800 / 800 Other: Date of Last Bowel Movement 10/11/18 10/12/18 # Bowel Movements 2 GENERAL: Elderly WF, NAD SKIN: Warm and dry. HEAD: Normocephalic. EYES: No scleral icterus. No injection or drainage. NECK: Supple, trachea midline. No JVD or lymphadenopathy. CARDIOVASCULAR: Regular rate and rhythm without murmurs, gallops, or rubs. RESPIRATORY: Breath sounds equal bilaterally. No accessory muscle use. GASTROINTESTINAL: Abdomen soft, non-tender, nondistended. MUSCULOSKELETAL: No cyanosis, or edema. BACK: Nontender without obvious deformity. No CVA tenderness. Assessment and Plan - Plan IMPRESSION: Resp Insuff Severe COPD Pneumonia AMS Anxiety disorder Nicotine use PLAN: Supplement 02 with MICKY Nelson for anxiety and help her tolerate BIPAP Prednisone 10 mg tid Cont Abx Aerosol nebs Nicotine patch Encouraged her to use Acapella and IS Due to severe COPD , pt will be mod to high risk of pulm complications from aneathesia.
[2018-10-13] MEDS: Pantoprazole Inj 40 MG Vial IV.PUSH SCH (03:09)
[2018-10-13 07:28] VITALS: RESP 18
[2018-10-13] MEDS: predniSONE 10 MG Tablet PO SCH (08:48)
[2018-10-13] MEDS: Ferrous Sulfate 325 MG Tablet PO SCH (08:48)
[2018-10-13] MEDS: Ascorbic Acid 500 MG Tablet PO SCH (08:48)
[2018-10-13] MEDS: guaiFENesin 600 MG ER Tablet PO SCH (08:48)
[2018-10-13] MEDS: Nystatin Liq 500,000 UNIT/5 ML UDC PO SCH (08:48)
[2018-10-13] MEDS: Senna/Docusate Sodium 8.6/50 MG Tablet PO SCH (08:49)
[2018-10-13] MEDS: Insulin NovoLOG Aspart Correctional Sugar Inj SQ SCH ×2 (08:49→12:13)
--- NOTE | 2018-10-13 10:35 | P.DCO ---
Physical Therapy Order: Evaluate and treat, Improve ambulation and Strength and gait training Home Health Nursing Order: Medical education, Signs/symptoms of disease process, Oxygen administration education and Nursing assessment with vital signs Case Management Consult Case Management Consult-Home Health: Yes I have seen patient Cassi Oseguera on 10/13/18. My clinical findings support the need for the requested home health care services because: Limited mobility due to disease progression, Patient has SOB, Deconditioned with increased weakness, Medication compliance is questionable, Limited ability to care for self, Need for psychosocial assistance, Impaired cognition/ judgement and High risk of falls I certify that my clinical findings support that this patient is homebound because: Impaired cognitive ability/safety, Hx COPD - exertion dyspnea/weakness, Unsteady gait/balance, Unsafe to leave home unassisted, Need for psychosocial assistance and Unable to use public transportation
--- NOTE | 2018-10-13 10:35 | P.DS ---
DS: Providers Date of admission: 10/01/18 18:04 Primary care physician: Franky Patel DO Consults: 10/08/18 08:26 Consult to Hospitalist Routine Consulting Provider: Jim Wills Reason for Consultation: Patient was being seen by Dr. Lopez/family medicine. COPD exacerbation. Notified:: Service Spoke with:: Marta Date Notified:: 10/08/18 Time Notified:: 08:39 Comments:: waiting on assignment - ML Ordering Provider: ANA ROSA 10/09/18 14:00 Consult to Gastroenterology Routine Consulting Provider: Jason Aviles Reason for Consultation: Hemoccult positive stool Notified:: Office Spoke with:: alex Date Notified:: 10/09/18 Time Notified:: 14:08 Ordering Provider: SHAWN 10/11/18 05:33 HUB Only Consult Order Routine Consulting Provider: Aidee Dye 10/01/18 18:55 HUB Only Consult Order Routine Consulting Provider: Shawnee Motivano,Insurance 10/03/18 08:00 Consult to Pulmonology Routine Consulting Provider: Toan Ocampo Preferred Data Integrity Analyst:: Maya Trejo Patient known to:: Maya Trejo Reason for Consultation: COPD, PNA Notified:: Service Spoke with:: Marta Date Notified:: 10/03/18 Time Notified:: 08:07 Comments:: per Dr Maya Lozano [facility] Ordering Provider: CHACHA 10/03/18 13:12 Consult to Third Cook Routine Consulting Provider: Sidney Shah Reason for Consultation: critical care management ams, copd hypercapnia Notified:: Service Spoke with:: Marta Date Notified:: 10/03/18 Time Notified:: 13:25 Comments:: Ordering Provider: CHACHA Brief History from admission: 68-year-old female with PMH of CRF and COPD on 2- 4 L by RI at home recently requiring 4-5 L per patient at home. She follows with Dr Maya shoemaker as OP but has not seen him lately. The patient presented to the ED for evaluation of shortness of breath and possible anemia. Says she has a h/o anemia and is taking iron pills. Per patient she was seen by her doctor today and was told to come here as she looked pale and she may need a transfusion as well as her shortness of breath was worsening. She denies any blood thinners. She denies any bleeding of any kind. No urinary or bowel movement issues. Says 2 L of oxygen at home but even with this she still feels very short of breath. Any movement causes more symptoms. She does have some chest discomfort as well and feels like a pressure. States that the pain currently is 5 out of 10. Per patient overall her main symptom is the shortness of breath. She states that she is chronically anemic and she was told that she is iron deficient and she is taking iron supplements. She states that she is never any a transfusion in the past. She denies any cardiac history. Patient states that she continues to smoke 1PPD. She does have a history of COPD and uses inhalers and nebulizers at home including inhaled steroid. No abdominal pain. No diarrhea. No fever but states having some chills and sweats. Feels comgested in her chest and can't cough up anything. No other medical symptoms. DS: Summary 68-year-old female with PMH of CRF and COPD on 2-4 L by [place] at home recently requiring 4-5 L per patient at home,Hyperlipidemia, depression, h/o shingles, presented on 10/01 with worsening shortness of breath and anemia, was admitted for COPD exacerbation and anemia. She decompensated on 10/03 due to acute respiratory failure and metabolic encephalopathy and pneumonia and critical care team consulted.Patient was admitted to the [facility]. Acute respiratory failure-resolved. Metabolic encephalopathy-resolved. COPD exacerbation--improving. cont on bronchodilators, switched to PO Prednisone 10mg tid,cont Oxygen by nasal canula. BIPAP prn, on Buspar for anxiety. incentive spirometry. Community Acquired Pneumonia - Patient has received adequate abx in the hospital. Anemia with heme occult positive stools Hb has been stable in the 8's range for the last 1 week. on iron supplements, Will continue Protonix. GI consult planning for EGD and colonoscopy when respiratory status improves. pulmonary deemed patient moderate to high risk for procedure. Overall, patient continued to do well. I have discussed with patient at length as well as GI. At this point, due to high risk, no GI procedure can be performed. Patient is pretty much back to her baseline. I have also discussed with Pulmonary who is okay with discharge as well. Time Spent with Patient Total time spent providing and/or coordinating discharge services: Greater than 30 minutes Quality: VTE Deep Vein Thrombosis/Pulmonary Embolism Present on Admission: No Exam Narrative Exam Narrative: GENERAL: Alert, NAD. SKIN: Warm and dry. HEAD: Normocephalic. EYES: No scleral icterus. No injection or drainage. NECK: Supple, trachea midline. No JVD or lymphadenopathy. CARDIOVASCULAR: Regular rate and rhythm without murmurs, gallops, or rubs. RESPIRATORY: Moderate air entry. No accessory muscle use. GASTROINTESTINAL: Abdomen soft, non-tender, nondistended. MUSCULOSKELETAL: No cyanosis, or edema. BACK: Nontender without obvious deformity. No CVA tenderness. Results Labs on day of discharge: Labs from last 24 hours 10/13/18 10/12/18 10/12/18 07:29 20:40 16:56 WBC RBC Hgb Hct MCV MCH MCHC RDW Plt Count MPV Neut % (Auto) Lymph % (Auto) Pender % (Auto) Eos % (Auto) Baso % (Auto) Neut # (Auto) Lymph # (Auto) Pender # (Auto) Eos # (Auto) Baso # (Auto) WBC Differential Differential Comment POC Glucose 94 205 H 166 H 10/12/18 10/12/18 14:01 12:27 WBC 9.4 RBC 3.11 L Hgb 8.5 L Hct 27.2 L MCV 87.4 MCH 27.3 MCHC 31.2 L RDW 21.2 H Plt Count 287 MPV 7.7 Neut % (Auto) 89.9 H Lymph % (Auto) 4.6 L Pender % (Auto) 5.3 Eos % (Auto) 0.1 Baso % (Auto) 0.1 Neut # (Auto) 8.5 H Lymph # (Auto) 0.4 L Pender # (Auto) 0.5 Eos # (Auto) 0.0 Baso # (Auto) 0.0 WBC Differential . Differential Comment Auto diff final POC Glucose 200 H Impressions ITS Impressions Chest CTA 10/01/18 16:01 CONCLUSION: 1. No pulmonary embolus. 2. Emphysematous change seen throughout the lungs. 3. Scattered areas of density seen throughout the lungs being most prominent at the right middle lobe and left lower lobe. These likely represent areas of consolidation or atelectasis. They can be followed. Chest X-Ray 10/09/18 06:00 CONCLUSION: Bibasilar areas of consolidation, atelectasis and/or effusion. This appears worse when compared to the prior exam. Discharge Plan Discharge Disposition Patient Disposition: W/Home Health Service Discharge Condition Condition: Stable Discharge Order Discharge Orders: Discharge Order (Routine); Ordered 10/13/18 Ordered By: Aidee Dye Discharge Details Anticipated Discharge Date: 10/13/18 Physicians Team Primary Care Provider: Franky Patel Attending Provider: Franky Patel Other Providers: [employer],Insurance ; Sidney Shah ; Toan Ocampo ; Jason Aviles ; Aidee Dye Rxs /Orders / Referrals /Forms Prescriptions: New buspirone 5 mg Tablet 5 mg PO TID Qty: 90 RF: 0 prednisone 10 mg Tablet 10 mg PO TID Qty: 15 RF: 0 paroxetine HCl [Paxil CR] 25 mg Tablet Extended Release 24 Hr 25 mg PO DAILY Qty: 30 RF: 1 budesonide-formoterol [Symbicort] 160-4.5 mcg/actuation HFA aerosol inhaler 1 inh INHALATION BID 30 Days Qty: 10.2 RF: 2 Continue lovastatin 40 mg Tablet 40 mg PO DAILY RF: 0 ferrous sulfate [iron] 325 mg (65 mg iron) Tablet 325 mg PO DAILY RF: 0 albuterol sulfate [ProAir HFA] 90 mcg/actuation Hfa Aerosol Inhaler 2 puff INHALATION Q4-6H PRN (Reason: Shortness Of Breath Or Wheezing) RF: 0 tiotropium bromide [Spiriva Respimat] 1.25 mcg/actuation Mist 2 puff INHALATION DAILY RF: 0 hydrocodone-acetaminophen [Ellsworth] 5-325 mg tablet 1 tab PO Q4H PRN (Reason: Acute pain) Qty: 14 RF: 0 nystatin 100,000 unit/mL Suspension 10 ml PO QID RF: 0 Discontinued pregabalin [Lyrica] 25 mg Capsule 25 mg PO BID RF: 0 Referrals: [facility], [Agency] - See Instructions Franky Patel DO [Primary Care Provider] - See Instructions Maya Trejo MD [Physician] - See Instructions (Follow up within 1-2 weeks. ) Discharge Instructions Patient Printed Instructions: Buspirone (By mouth), Prednisone (By mouth), Paroxetine (By mouth), Budesonide/Formoterol (By breathing), Bronchiolitis (DC) , Heart Healthy Diet (DC), Iron Deficiency Anemia (DC), COPD (Chronic Obstructive Pulmonary Disease) (DC) Additional Instructions: Home Health Care to be provided by: [facility] [phone] Status ED Status: Left Department Discharge Information Discharge Date/Time: 10/13/18 14:45
--- NOTE | 2018-10-13 10:37 | P.PNGI ---
Subjective Interval history: Patient sitting up in bed Spouse at bedside Denies nausea vomiting abdominal pain Denies any noted bleeding <Gianna Caldera - Last Filed: 10/13/18 10:31> Physical Exam Vital signs: Vital Signs 10/12/18 11:00 10/12/18 12:00 10/12/18 13:00 Temperature 98.0 F Pulse Rate 89 106 H 100 H Respiratory Rate 18 Blood Pressure 129/65 Pulse Oximetry 94 L 10/12/18 14:00 10/12/18 15:00 10/12/18 16:00 Temperature 98.0 F Pulse Rate 100 H 96 H 92 H Respiratory Rate 18 Blood Pressure 145/69 H Pulse Oximetry 96 10/12/18 17:00 10/12/18 18:00 10/12/18 19:00 Temperature 97.9 F Pulse Rate 102 H 94 H 91 H Respiratory Rate 20 Blood Pressure 120/53 L Pulse Oximetry 100 10/12/18 20:00 10/12/18 20:11 10/12/18 20:12 Temperature Pulse Rate 92 H 93 H Respiratory Rate 15 Blood Pressure Pulse Oximetry 100 99 10/12/18 21:00 10/12/18 22:00 10/12/18 23:00 Temperature 98.0 F Pulse Rate 94 H 98 H 86 Respiratory Rate 20 Blood Pressure 125/57 L Pulse Oximetry 98 10/13/18 00:00 10/13/18 01:00 10/13/18 02:00 Temperature Pulse Rate 88 98 H 82 Respiratory Rate Blood Pressure Pulse Oximetry 10/13/18 03:00 10/13/18 04:00 10/13/18 05:00 Temperature 98.0 F Pulse Rate 87 92 H 86 Respiratory Rate 22 Blood Pressure 129/57 L Pulse Oximetry 100 10/13/18 06:00 10/13/18 07:00 10/13/18 07:27 Temperature 99.0 F Pulse Rate 90 95 H 92 H Respiratory Rate 18 18 Blood Pressure 113/54 L Pulse Oximetry 97 10/13/18 08:00 10/13/18 09:00 10/13/18 10:00 Temperature Pulse Rate 100 H 100 H 96 H Respiratory Rate Blood Pressure Pulse Oximetry 97 Intake & Output 10/12/18 10/13/18 10/13/18 18:59 06:59 18:59 Intake Total 840 / 840 240 / 240 Output Total 1900 / 1900 Balance 840 / 840 -1660 / -1660 Weight 52.3 kg Intake: IV 100 / 100 Rocephin Inj 1,000 MG In NS Inj 100 / 100 100 ML @ 200 mls/hr IV.SIG Q24H CHRIS Rx#:[id number] Oral 740 / 740 240 / 240 Output: Urine 1900 / 1900 Other: # Voids 5 Date of Last Bowel Movement 10/12/18 10/12/18 10/12/18 # Bowel Movements 2 - Constitutional no acute distress, chronically ill appearing, cooperative - Routine HEENT Exam Head: Present: normocephalic - Routine Neck Exam Present: supple - Routine Respiratory Exam Present: accessory muscle use, wheezes. Absent: respiratory distress Comments: Fine scattered wheezes 3 L nasal cannula Patient endorses shortness of breath on exertion - Routine Cardiovascular Exam Present: RRR - Routine Abdominal Exam Present: soft, normoactive bowel sounds. Absent: tenderness, distended, organomegaly - Routine Extremities Exam Absent: edema - Routine Skin Exam Present: dry, warm - Routine Neurological Exam Present: alert, oriented X3 - Routine Psychiatric Exam Present: normal affect, cooperative <Caldera,Gianna - Last Filed: 10/13/18 10:31> Vital signs: Vital Signs 10/12/18 15:00 10/12/18 16:00 10/12/18 17:00 Temperature 98.0 F Pulse Rate 96 H 92 H 102 H Respiratory Rate 18 Blood Pressure 145/69 H Pulse Oximetry 96 10/12/18 18:00 10/12/18 19:00 10/12/18 20:00 Temperature 97.9 F Pulse Rate 94 H 91 H 92 H Respiratory Rate 20 Blood Pressure 120/53 L Pulse Oximetry 100 100 10/12/18 20:11 10/12/18 20:12 10/12/18 21:00 Temperature Pulse Rate 93 H 94 H Respiratory Rate 15 Blood Pressure Pulse Oximetry 99 10/12/18 22:00 10/12/18 23:00 10/13/18 00:00 Temperature 98.0 F Pulse Rate 98 H 86 88 Respiratory Rate 20 Blood Pressure 125/57 L Pulse Oximetry 98 10/13/18 01:00 10/13/18 02:00 10/13/18 03:00 Temperature 98.0 F Pulse Rate 98 H 82 87 Respiratory Rate 22 Blood Pressure 129/57 L Pulse Oximetry 100 10/13/18 04:00 10/13/18 05:00 10/13/18 06:00 Temperature Pulse Rate 92 H 86 90 Respiratory Rate Blood Pressure Pulse Oximetry 10/13/18 07:00 10/13/18 07:27 10/13/18 08:00 Temperature 99.0 F Pulse Rate 95 H 92 H 100 H Respiratory Rate 18 18 Blood Pressure 113/54 L Pulse Oximetry 97 97 10/13/18 09:00 10/13/18 10:00 10/13/18 11:00 Temperature 98.6 F Pulse Rate 100 H 96 H 100 H Respiratory Rate 18 Blood Pressure 135/56 L Pulse Oximetry 92 L Intake & Output 10/12/18 10/13/18 10/13/18 18:59 06:59 18:59 Intake Total 840 / 840 240 / 240 Output Total 1900 / 1900 Balance 840 / 840 -1660 / -1660 Weight 52.3 kg Intake: IV 100 / 100 Rocephin Inj 1,000 MG In NS Inj 100 / 100 100 ML @ 200 mls/hr IV.SIG Q24H CHRIS Rx#:[id number] Oral 740 / 740 240 / 240 Output: Urine 1900 / 1900 Other: # Voids 5 Date of Last Bowel Movement 10/12/18 10/12/18 10/12/18 # Bowel Movements 2 <Jason Aviles A - Last Filed: 10/13/18 14:12> Results - Labs CBC & Chem 7: 10/12/18 14:01 10/09/18 04:41 Laboratory Results - last 24 hr 10/12/18 10/12/18 10/12/18 12:27 14:01 16:56 WBC 9.4 RBC 3.11 L Hgb 8.5 L Hct 27.2 L MCV 87.4 MCH 27.3 MCHC 31.2 L RDW 21.2 H Plt Count 287 MPV 7.7 Neut % (Auto) 89.9 H Lymph % (Auto) 4.6 L Mckenzie % (Auto) 5.3 Eos % (Auto) 0.1 Baso % (Auto) 0.1 Neut # (Auto) 8.5 H Lymph # (Auto) 0.4 L Mckenzie # (Auto) 0.5 Eos # (Auto) 0.0 Baso # (Auto) 0.0 WBC Differential . Differential Comment Auto diff final POC Glucose 200 H 166 H 10/12/18 10/13/18 20:40 07:29 WBC RBC Hgb Hct MCV MCH MCHC RDW Plt Count MPV Neut % (Auto) Lymph % (Auto) Mckenzie % (Auto) Eos % (Auto) Baso % (Auto) Neut # (Auto) Lymph # (Auto) Mckenzie # (Auto) Eos # (Auto) Baso # (Auto) WBC Differential Differential Comment POC Glucose 205 H 94 Microbiology 10/10/18 08:00 Sputum - Expectorated Sputum Gram Stain - Final 10/10/18 08:00 Sputum - Expectorated Sputum Sputum Culture - Final Heavy growth normal respiratory marjorie <Gianna Caldera - Last Filed: 10/13/18 10:31> - Labs CBC & Chem 7: 10/13/18 12:01 10/13/18 12:01 Laboratory Results - last 24 hr 10/12/18 10/12/18 10/12/18 14:01 16:56 20:40 WBC 9.4 RBC 3.11 L Hgb 8.5 L Hct 27.2 L MCV 87.4 MCH 27.3 MCHC 31.2 L RDW 21.2 H Plt Count 287 MPV 7.7 Neut % (Auto) 89.9 H Lymph % (Auto) 4.6 L Mckenzie % (Auto) 5.3 Eos % (Auto) 0.1 Baso % (Auto) 0.1 Neut # (Auto) 8.5 H Lymph # (Auto) 0.4 L Mckenzie # (Auto) 0.5 Eos # (Auto) 0.0 Baso # (Auto) 0.0 WBC Differential . Differential Comment Auto diff final Sodium Potassium Chloride Carbon Dioxide Anion Gap BUN Creatinine Estimated GFR POC Glucose 166 H 205 H Random Glucose Calcium 10/13/18 10/13/18 10/13/18 07:29 11:42 12:01 WBC 9.3 RBC 3.14 L Hgb 9.0 L Hct 27.0 L MCV 85.8 MCH 28.7 MCHC 33.4 RDW 21.5 H Plt Count 285 MPV 7.8 Neut % (Auto) 88.0 H Lymph % (Auto) 4.5 L Mckenzie % (Auto) 7.1 Eos % (Auto) 0.3 Baso % (Auto) 0.1 Neut # (Auto) 8.2 H Lymph # (Auto) 0.4 L Mckenzie # (Auto) 0.7 Eos # (Auto) 0.0 Baso # (Auto) 0.0 WBC Differential . Differential Comment Auto diff final Sodium Potassium Chloride Carbon Dioxide Anion Gap BUN Creatinine Estimated GFR POC Glucose 94 116 H Random Glucose Calcium 10/13/18 12:01 WBC RBC Hgb Hct MCV MCH MCHC RDW Plt Count MPV Neut % (Auto) Lymph % (Auto) Mckenzie % (Auto) Eos % (Auto) Baso % (Auto) Neut # (Auto) Lymph # (Auto) Mckenzie # (Auto) Eos # (Auto) Baso # (Auto) WBC Differential Differential Comment Sodium 138 Potassium 3.4 L Chloride 95 L Carbon Dioxide 40.9 H Anion Gap 2 L BUN 13 Creatinine 0.39 L Estimated GFR Greater than 89 POC Glucose Random Glucose 94 Calcium 8.6 Microbiology 10/10/18 08:00 Sputum - Expectorated Sputum Gram Stain - Final 10/10/18 08:00 Sputum - Expectorated Sputum Sputum Culture - Final Heavy growth normal respiratory marjorie <Jason Aviles - Last Filed: 10/13/18 14:12> Assessment and Plan - Plan - Anemia with heme positive stools known history of iron deficiency anemia on iron supplements prior to admission Was taking frequent NSAIDs prior to admission for generalized pain. hgb has been steady, no labs done today Noted shortness of breath on exertion, on 4L of O2 States she always has black stools due to iron supplement - COPD exacerbation-pneumonia- pulmonology on the case, Due to severe COPD , pt will be mod to high risk of pulm complications from anesthesia. was on BiPAP, since been weaned to nasal cannula, but now Bipap as needed 10/13/2018 Patient reports black stools that she is on iron supplements for chronic iron deficiency anemia Endorses shortness of breath on exertion-presently on 3 L nasal cannula Per pulmonology, patient high risk for anesthesia complications due to severe COPD Discussed smoking cessation with patient who verbalized understanding and agrees to attempt same 10/12/2018 hemoglobin 8.5 hematocrit 27.2 stable Plan -Diet as tolerated -EGD and colonoscopy when patient stable-from pulmonary standpoint -PPI -Iron supplementation -CBC monitoring -Monitor for bleeding -Supportive care -Patient agrees to follow-up with advanced GI post discharge This patient has been seen by myself and Dr. Aviles and this note is written on his behalf - Attending Attestation Dr. Aviles <Gianna Caldera - Last Filed: 10/13/18 10:31> - Attending Attestation Agree with above assessment and plan. Please notify us when patient is stable for Endoscopic evaluation. <Jason Aviles - Last Filed: 10/13/18 14:12>
[2018-10-13 11:45] VITALS: BP 135/56; TEMP 98.6; O2SAT 92
[2018-10-13 12:37] LABS: Baso % (Auto) 0.1 % (0.0-2.0); Eos % (Auto) 0.3 % (0.0-4.0); Lymph # (Auto) 0.4 th/mm3 (1.0-4.8); Lymph % (Auto) 4.5 % (9.0-44.0); Mean Corpuscular HGB Conc 33.4 % (32.0-36.0); Mean Corpuscular Hemoglobin 28.7 pg (27.0-34.0); Mean Corpuscular Volume 85.8 fL (80.0-100.0); Mean Platelet Volume 7.8 fL (7.0-11.0); Mono # (Auto) 0.7 th/mm3 (0.0-0.9); Mono % (Auto) 7.1 % (0.0-8.0); Neut # (Auto) 8.2 th/mm3 (1.8-7.7); Platelet Count 285 th/mm3 (150-450); Red Blood Count 3.14 mil/mm3 (4.00-5.30); Red Cell Distribution Width 21.5 % (11.6-17.2); White Blood Count 9.3 th/mm3 (4.0-11.0)
[2018-10-13 12:52] LABS: Anion Gap 2 meq/L (5-15); Blood Urea Nitrogen 13 mg/dL (7-18); Calcium 8.6 mg/dL (8.5-10.1); Carbon Dioxide 40.9 meq/L (21.0-32.0); Chloride 95 meq/L (98-107); Glomerular Filtration Rate Greater Than 89 mL/min (>89); Glucose,Random 94 mg/dL (74-106); Potassium 3.4 meq/L (3.5-5.1); Sodium 138 meq/L (136-145)
[2018-10-13 14:20] VITALS: PULSE 102
--- NOTE | 2018-10-14 11:32 | MB ---
cc: Toan Ocampo MD DATE: 10/03/2018 REQUESTING PHYSICIAN: Dr. Louise Hancock. REASON FOR CONSULTATION: Respiratory insufficiency. HISTORY OF PRESENT ILLNESS: The patient is a 68-year-old female with a history of COPD, chronic respiratory insufficiency. She recently moved from [place]. She was using oxygen 2-3 liters nasal cannula, which she gets panicky and bumps up the oxygen all the way to 5 liters. Over the last 2 or 3 days, she is getting more short of breath. She went to see Dr. Patel as an office visit and she was found to be having worsening of shortness of breath and she was noted to have some pallor. The patient was sent to the hospital for possible evaluation and possible need for blood transfusion. The patient was worked up in the hospital. She had a CTA of the chest done which does not show any pulmonary embolism, shows emphysematous changes throughout both lungs and scattered area of density throughout the lungs, more prominent in the right middle lobe. She was also found to be anemic. She had 1 unit of blood transfusion. Repeat CBC shows her WBC count 10.7, hemoglobin 9.2, hematocrit 29.4, MCV 86, platelet count 603. Sodium 141, potassium 4.2, chloride 101, CO2 37, BUN 20, creatinine 0.62. Blood gas 7.48, pCO2 of 44, pO2 59 on 3.5 liter nasal cannula. The patient was complaining of pain. She was given Braddock. She became more lethargic and she was given Narcan. She is transferred to the intensive care unit. She feels that she is uncomfortable and is restless. She is on 5 liter nasal cannula. PAST MEDICAL HISTORY: Significant for history of COPD. History of multiple sclerosis. She is not taking any treatment for it. MEDICATIONS: 1. She is currently taking albuterol and Atrovent nebulizer treatment. 2. Zithromax 500 mg a day. 3. Budesonide nebulizer treatment. 4. Rocephin 1 g a day. 5. Famotidine 20 mg a day. 6. Ferrous sulfate 325 mg twice a day. 7. Mucinex 600 mg twice a day. 8. Insulin coverage. 9. Magnesium oxide. 10. Solu-Medrol 40 mg q.8 hours. 11. Nystatin 6 mL 4 times a day. 12. Zofran p.r.n. 13. Paxil 20 mg a day. 14. Spiriva once a day. ALLERGIES: NO KNOWN DRUG ALLERGIES. SOCIAL HISTORY: She has a long history of smoking, 1-1/2 packs a day, which she quit to a few cigarettes a day. No alcohol abuse. She is not working. She worked as a waiter/waitress head. FAMILY HISTORY: She is for 20-some years. She has 1 child and her has one. REVIEW OF SYSTEMS: Over the last few years, she has not been able to ambulate because of the concern for falling and she is more or less bedbound. No stroke. No DVT or pulmonary embolism. mild to moderate shortness of breath. PHYSICAL EXAMINATION: VITAL SIGNS: Blood pressure is 165/70, heart rate 95, respirations 16, temperature 98.7. HEENT: Pupils are equal and reactive. Throat mucosa and nasal mucosa normal. NECK: No JVD. CHEST: She has expiratory rhonchi. CARDIOVASCULAR: S1, S2 normal. ABDOMEN: Benign. EXTREMITIES: No edema. IMPRESSION: 1. Respiratory insufficiency. 2. Compensated respiratory acidosis. 3. Change in mentation, probably related to narcotics. 4. Multiple sclerosis. 5. Anemia. PLAN: I discussed with the patient and her . Will supplement her oxygen to keep the saturation between 88% and 92%. Use CPAP only as needed. Continue antibiotic, IV Solu-Medrol, aerosol treatment. Monitor hemoglobin and hematocrit. Further details pending course in the hospital. Thank you, Dr. Louise Hancock, for this consult. MD KAILA Palomino/ll , 03:18 PM , 11:31 AM ARIADNE
== END 2018-10-13 14:45 | disposition home health service (06) | DRG 189 ==
LOC: NEPC 15:02 → NEDA 18:04 → N04 19:16 → HIMC 10-03 13:35 → HCIS 10-08 23:25
PROVIDERS: ADMIT Family Medicine; ATTEND Family Medicine
CPT/HCPCS: 36430; 36600; 71010; 71045; 71275; 80048; 80053; 82140; 82270; 82550; 82607; 82805; 82947; 82948; 82962; 83735; 84100; 84132; 84443; 84484; 85025; 85610; 85730; 86713; 86850; 86900; 86901; 86923; 87040; 87070; 87205; 87275; 87276; 87449; 87641; 87804; 90774; 90784; 92526; 92610; 93005; 93306; 94003; 94060; 94150; 94640; 94650; 94651; 94657; 94664; 94665; 94667; 94668; 96125; 96374; 97110; 97127; 97162; 97167; 97530; 97532; 97535; 99285; C8952; C9113; G0195; G0394; G0515; J0456; J0696; J1120; J1815; J1940; J2920; J2930; J3411; J3480; J7030; J7040; J7050; J7506; J7512; P9016; Q9967